=== PATIENT | female | born 1965 | race Caucasian/White ===

== ENCOUNTER 2020-04-28 07:14 | Outpatient (CLI) | payer BC, SELFPAY ==
--- NOTE | ~2020-04-28 | MM_ITS ---
EXAMINATION: MM screening [facility] BI w [facility] HISTORY: Screening mammogram TECHNIQUE: Craniocaudal and mediolateral oblique 3-D tomosynthesis images were obtained and synthetic 2-D images were generated. CAD analysis was submitted and interpreted. COMPARISON: 01/04/2019, 12/19/2017, 11/17/2016 BREAST PARENCHYMAL COMPOSITION: There are scattered areas of fibroglandular density. FINDINGS: There is no evidence of suspicious mass, calcification, or architectural distortion to sugg est malignancy in either breast. There has been no suspicious interval change. IMPRESSION: 1. No mammographic evidence of malignancy. 2. Recommend routine screening mammography in one year. BI-RADS Category 1: Negative Reviewed, dictated and finalized at location A.
== END 2020-04-28 07:15 | disposition home or self-care (01) ==
LOC: ANHIMG 07:17
PROVIDERS: PCP Family Medicine; Visit Provider Family Medicine
DX: Z12.31 Encounter for screening mammogram for malignant neoplasm of breast (principal)
CPT/HCPCS: 77063; 77067

== ENCOUNTER → 2020-10-30 16:52 | Outpatient (CLI) | payer BC, SELFPAY ==
--- NOTE | ~2020-10-30 | XR_ITS ---
EXAMINATION: XR foot LT min 3V DATE: 10/30/2020 17:53 INDICATION: Psoriatic arthritis. TECHNIQUE: 4 views of left foot were obtained. COMPARISON: Left foot radiographs 10/27/2016 FINDINGS: Bone alignment is normal. No fracture. There is mild osteoarthritis of first metatarsophala ngeal joint and some of the interphalangeal joints. There is an enthesophyte at plantar aspect of jed caneal tuberosity. IMPRESSION: 1. Mild polyarticular osteoarthritis. Reviewed, dictated and finalized at location A. TENANCE MAN
--- NOTE | ~2020-10-30 | XR_ITS ---
EXAMINATION: XR hand LT min 3V DATE: 10/30/2020 17:53 INDICATION: Psoriatic arthritis. TECHNIQUE: 3 views of left hand were obtained. COMPARISON: Left hand radiographs 10/27/2016 FINDINGS: Bone alignment is normal. No acute fracture. There is a loose body dorsal to the carpus on the lateral view. There is mild osteoarthritis of triscaphe joint, first carpometacarpal joint, and f irst interphalangeal joint. There is moderate osteoarthritis of second, third, and fifth distal inter phalangeal joints and mild osteoarthritis of fourth distal interphalangeal joint. IMPRESSION: 1. Polyarticular osteoarthritis. Reviewed, dictated and finalized at location A. O RECORDER MECHANIC
--- NOTE | ~2020-10-30 | XR_ITS ---
XR lumbar spine min 4V DATE: 10/30/2020 17:53 INDICATION: Psoriatic arthritis TECHNIQUE: AP, bilateral oblique, lateral and coned lateral lumbosacral views COMPARISON: 02/15/2013 MRI lumbar spine 01/27/2013 lumbosacral spine FINDINGS: There is diffuse osteopenia. No fracture or bone destruction is evident. The included lower thoracic and lumbar pedicles are intac t. There is moderate degenerative disease at L1-2 and L2-3 and L4-5, mild degenerative disc disease at L 3-4. L5-S1 interspace is relatively spared. No spondylolysis or spondylolisthesis. There is degenerative change at the apophyseal joints particul lexi at L4-5 and L5-S1. Sacroiliac joints appear normal. IMPRESSION: Diffuse osseous. Multilevel degenerative disc disease and degenerative change at the apophyseal joints Reviewed, dictated and finalized at location A. AL SUPPLY CHAIN DIRECTOR
--- NOTE | ~2020-10-30 | XR_ITS ---
XR sacroiliac joints min 3V DATE: 10/30/2020 17:53 INDICATION: Psoriatic arthritis TECHNIQUE: AP and bilateral oblique views COMPARISON: None FINDINGS: No fracture or dislocation, erosive change or ankylosis at the sacroiliac joints. IMPRESSION: No significant abnormality of the sacroiliac joints Reviewed, dictated and finalized at Location A. Reviewed, dictated and finalized at location A. REPAIRER
--- NOTE | ~2020-10-30 | XR_ITS ---
EXAMINATION: XR foot RT min 3V DATE: 10/30/2020 17:53 INDICATION: Psoriatic arthritis. TECHNIQUE: 4 views of right foot were obtained. COMPARISON: Right foot radiographs 10/27/2016 FINDINGS: Bone alignment is normal. No fracture. There is mild osteoarthritis of first metatarsophala ngeal joint and some of the interphalangeal joints. There is an enthesophyte at plantar aspect of jed caneal tuberosity. IMPRESSION: 1. Mild polyarticular osteoarthritis. Reviewed, dictated and finalized at location A. HAT SANDING MACHINE OPERATOR
--- NOTE | ~2020-10-30 | XR_ITS ---
EXAMINATION: XR hand RT min 3V DATE: 10/30/2020 17:53 INDICATION: Psoriatic arthritis. TECHNIQUE: 3 views of right hand were obtained. COMPARISON: Right hand radiographs 10/27/2016 FINDINGS: Bone alignment is normal. No fracture. There is mild osteoarthritis of first metacarpophala ngeal joint, first carpometacarpal joint, first interphalangeal joint, and second-fourth distal inter phalangeal joints and moderate osteoarthritis of fifth distal interphalangeal joint. IMPRESSION: 1. Polyarticular osteoarthritis. Reviewed, dictated and finalized at location A. ROL ROOM SUPERVISOR
== END ==
PROVIDERS: PCP Family Medicine; Visit Provider Internal Medicine Rheumatology
DX: L40.50 Arthropathic psoriasis, unspecified (principal); M19.072 Primary osteoarthritis, left ankle and foot; M19.041 Primary osteoarthritis, right hand; M19.042 Primary osteoarthritis, left hand; M51.36 Other intervertebral disc degeneration, lumbar region
CPT/HCPCS: 72110; 72202; 73130; 73630

== ENCOUNTER → 2020-12-15 00:40 | Outpatient (CLI) | payer BC, SELFPAY ==
[2020-12-15 18:52] LABS: SARS-CoV-2 RNA PCR Negative
== END ==
PROVIDERS: PCP Family Medicine; Visit Provider Internal Medicine Gastroenterology
DX: Z01.812 Encounter for preprocedural laboratory examination (principal); Z20.822 Contact with and (suspected) exposure to COVID-19
CPT/HCPCS: C9803; U0003; U0005

== ENCOUNTER 2020-12-19 02:00 | Day surgery (SDC) | payer BC, SELFPAY ==
[2020-12-06 12:32] VITALS: BMI 36.9
[2020-12-19 08:42] VITALS: BP 145/97; PULSE 95; RESP 18; TEMP 37.2; O2SAT 95; BMI 37.5
[2020-12-19] MEDS: LACTATED RINGERS 1,000 ML 150 ML IV CONT (09:10)
--- NOTE | 2020-12-19 09:31 | WPDANESEPPF ---
Anes - Initial Pre Proc Eval Procedure: Operation Date: 12/19/20 10:00 Proposed Procedures p Screening Colonoscopy - Orlando Marie MD Date/Time: 12/19/20 09:31 Surgeon: Orlando Marie MD Pre Op Diagnosis: neoplasm screening Patient Data Age: 55 Gender: F Height: 5 ft 7 in Weight: 108.6 kg Last Vital Signs Temp 98.9 F 12/19/20 08:42 Pulse 95 12/19/20 08:42 Resp 18 12/19/20 08:42 BP 145/97 H 12/19/20 08:42 Pulse Ox 95 12/19/20 08:42 Allergies Allergy/AdvReac Type Severity Reaction Status Date / Time beef derived (bovine) Allergy Unknown nausea Verified 12/19/20 08:41 ioversol Allergy Unknown Unknown Verified 12/19/20 08:41 Contrast Media Allergy Unknown Unknown Uncoded 12/19/20 08:41 Home Medications Medication Instructions Recorded Confirmed Type quinapril 20 mg tablet 20 mg PO DAILY #90 tablet 01/19/20 12/19/20 Rx adalimumab 40 mg/0.4 mL 40 mg SUBCUT WEEKLY 09/27/20 12/19/20 History subcutaneous syringe kit atorvastatin 20 mg tablet 20 mg PO DAILY #90 tablet 10/29/20 12/06/20 Rx cholecalciferol (vitamin D3) 1,250 1,250 mcg PO WEEKLY #14 cap 10/29/20 12/19/20 Rx mcg (50,000 unit) capsule fluticasone propionate [Flonase] 1 spray INTRANASAL DAILY PRN 12/06/20 12/19/20 History levothyroxine 125 mcg PO HS 12/06/20 12/19/20 History Patient hx anesthesia problems: none Family hx anesthesia problems: none PMFSH Past Medical History Medical History (Updated 12/19/20 @ 09:32 by Phani Hubbard MD) Anxiety Dyslipidemia Essential (primary) hypertension Hypothyroidism, unspecified Family History Family History Father Diabetes mellitus Hypertension Family history of malignant neoplasm Family history of cardiovascular disease Family history of lung cancer Mother Diabetes mellitus Family history of arthritis Family history of malignant neoplasm Family history of malignant neoplasm of cervix Grandparent Family history of psoriasis Family history of lung cancer Other Family history of elevated blood lipids Social History Social History Smoking packs per day: 1 Smoking cigarettes per day: 20.0 Years smoked: 35 Smoking pack-years: 35.00 Smoking status: Former smoker Smoking end date: 09/07/11 Alcohol intake: current Substance use: former Substance use type: marijuana Living arrangements: with family Spiritual care concerns: No Anes - Eval Final PreProcedure Day of Procedure 12/19/20 09:31 Patient weight: obese Heart: regular rate and rhythm Lungs: clear to auscultation Airway: Mallampati scale class II Neurological: alert and oriented Last oral intake: >/= 8 hours ASA classification: III Emergent: no Anesthetic plan: proceed Anesthesia type and monitoring: general GIVS and standard monitoring Informed Consent: The patient's anesthetic plan and its attendant risks and benefits were discussed with the patient/family/POA. Questions were solicited and answers provided to the satisfaction of the patient/family/POA.
--- NOTE | 2020-12-19 09:41 | PM.HPGS ---
History of Present Illness History of Present Illness Consent: Risks, benefits, and alternatives have been discussed and questions answered. Patient agrees to proceed with procedure. Chief complaint: neoplasm screening Narrative: Vivian Matute is a 55 year old female here for first screening colonoscopy Review of Systems Constitutional: Constitutional: Denies headache(s) and Denies weakness Eyes: Eyes: Denies blurry vision ENT: Reports Normal hearing present, Denies headache(s) and Denies neck pain Cardiovascular: Cardiovascular: Denies chest pain and Denies dyspnea Respiratory: Respiratory: Denies dyspnea Gastrointestinal: Gastrointestinal: Reports no additional gastrointestinal complaints Genitourinary: Genitourinary: Denies dysuria Musculoskeletal: Musculoskeletal: Denies neck pain Integumentary/Breasts: Skin/Breast: Denies dry skin Neurologic: Reports Normal hearing present, Denies headache(s) and Denies weakness Psychiatric: Psychiatric: Denies anxiety Endocrine: Endocrine: Denies change in body appearance Hematologic/Lymphatic: Hematologic/Lymphatic: Denies easy bleeding Allergic/Immunologic: Allergic/Immunologic: Denies urticaria [facility] Past Medical History Medical History (Updated 12/19/20 @ 09:42 by Orlando Marie MD) Anxiety Colon cancer screening Dyslipidemia Essential (primary) hypertension Hypothyroidism, unspecified Family History Family History Father Diabetes mellitus Hypertension Family history of malignant neoplasm Family history of cardiovascular disease Family history of lung cancer Mother Diabetes mellitus Family history of arthritis Family history of malignant neoplasm Family history of malignant neoplasm of cervix Grandparent Family history of psoriasis Family history of lung cancer Other Family history of elevated blood lipids Social History Social History Smoking packs per day: 1 Smoking cigarettes per day: 20.0 Years smoked: 35 Smoking pack-years: 35.00 Smoking status: Former smoker Smoking end date: 09/07/11 Alcohol intake: current Substance use: former Substance use type: marijuana Living arrangements: with family Spiritual care concerns: No Meds Home Medications and Allergies Home Medications Medication Instructions Recorded Confirmed Type quinapril 20 mg tablet 20 mg PO DAILY #90 tablet 01/19/20 12/19/20 Rx adalimumab 40 mg/0.4 mL 40 mg SUBCUT WEEKLY 09/27/20 12/19/20 History subcutaneous syringe kit atorvastatin 20 mg tablet 20 mg PO DAILY #90 tablet 10/29/20 12/06/20 Rx cholecalciferol (vitamin D3) 1,250 1,250 mcg PO WEEKLY #14 cap 10/29/20 12/19/20 Rx mcg (50,000 unit) capsule fluticasone propionate [Flonase] 1 spray INTRANASAL DAILY PRN 12/06/20 12/19/20 History levothyroxine 125 mcg PO HS 12/06/20 12/19/20 History Allergies Allergy/AdvReac Type Severity Reaction Status Date / Time beef derived (bovine) Allergy Unknown nausea Verified 12/19/20 08:41 ioversol Allergy Unknown Unknown Verified 12/19/20 08:41 Contrast Media Allergy Unknown Unknown Uncoded 12/19/20 08:41 Vital Signs Vital Signs - 24 hr 12/19/20 08:42 Temperature 98.9 F Pulse Rate 95 Respiratory Rate 18 Blood Pressure 145/97 H Pulse Oximetry 95 Exam Const: General: comfortable and no acute distress HENMT: General nose exam: Normal nares present Eyes: General: appearance normal, both eyes and all related structures Neck: Neck: no JVD Resp: Auscultation: clear to auscultation bilaterally Cardio: Rate: regular rate Rhythm: regular rhythm GI: Inspection: non-distended GI Palp: Yes Soft to palpation Skin: General skin exam: normal color Neuro: General: gait normal Speech: normal speech Extrem: General: normal to inspection Psych: Mental Status: mental status grossly normal As
[2020-12-19 10:02] VITALS: BP 112/68; PULSE 80; RESP 18; O2SAT 98
[2020-12-19 10:12] VITALS: BP 115/76; PULSE 76; RESP 17; O2SAT 97
[2020-12-19 10:22] VITALS: BP 118/56; PULSE 67; RESP 19; O2SAT 100
== END 2020-12-19 10:42 | disposition home or self-care (01) ==
PROVIDERS: PCP Family Medicine; Visit Provider Internal Medicine Gastroenterology
PROC: 0DJD8ZZ Inspection of Lower Intestinal Tract, Via Natural or Artificial Opening Endoscopic (ICD-10-PCS; CPT 45378; principal; 2020-12-19 10:00)
DX: Z12.11 Encounter for screening for malignant neoplasm of colon (principal); K57.30 Diverticulosis of large intestine without perforation or abscess without bleeding; K64.8 Other hemorrhoids; I10 Essential (primary) hypertension; E78.5 Hyperlipidemia, unspecified; E03.9 Hypothyroidism, unspecified; F41.9 Anxiety disorder, unspecified; Z87.891 Personal history of nicotine dependence; F12.90 Cannabis use, unspecified, uncomplicated; E66.9 Obesity, unspecified; Z68.37 Body mass index [BMI] 37.0-37.9, adult
CPT/HCPCS: 45378; C9803; J2704; J7120; U0003; U0005

== ENCOUNTER 2021-05-11 07:58 | Outpatient (CLI) | payer BC, SELFPAY ==
--- NOTE | ~2021-05-11 | MM_ITS ---
EXAMINATION: MM screening [facility] HISTORY: Screening mammogram TECHNIQUE: Craniocaudal and mediolateral oblique 3-D tomosynthesis images were obtained and synthetic 2-D images were generated. CAD analysis was submitted and interpreted. COMPARISON: 04/28/2020, 01/04/2019, 12/20/2007 bilateral digital screening mammogram examinations BREAST PARENCHYMAL COMPOSITION: FINDINGS: There is no evidence of suspicious mass, calcification, or architectural distortion to sugg est malignancy in either breast. There has been no suspicious interval change. IMPRESSION: 1. No mammographic evidence of malignancy. 2. Recommend routine screening mammography in one year. BI-RADS Category 1: Negative Reviewed, dictated and finalized at location A.
== END 2021-05-11 07:59 | disposition home or self-care (01) ==
LOC: ANHIMG 08:01
PROVIDERS: PCP Family Medicine; Visit Provider Family Medicine
DX: Z12.31 Encounter for screening mammogram for malignant neoplasm of breast (principal)
CPT/HCPCS: 77063; 77067

== ENCOUNTER 2022-01-25 08:06 | Emergency (ER) | payer BC, SELFPAY ==
--- NOTE | ~2022-01-25 | XR_ITS ---
EXAMINATION: XR knee RT 2V DATE: 01/25/2022 08:33 INDICATION: Medial right knee pain TECHNIQUE: AP and lateral views of the right knee were obtained. COMPARISON: None. FINDINGS: Alignment is normal. No fracture. Mild joint space narrowing in the medial and patellofemoral compart ments and small marginal osteophytes at the lateral and patellofemoral compartments. Soft tissues are unremarkable. No right knee joint effusion. IMPRESSION: 1. Mild tricompartmental osteoarthritis. No right knee joint effusion or acute osseous abnormality. Reviewed, dictated and finalized at location A.
[2022-01-25 08:16] VITALS: BP 140/78; PULSE 97; RESP 16; TEMP 36.8; O2SAT 97
--- NOTE | 2022-01-25 08:16 | ED.EXTPRO ---
HPI - Extremity Problem General Chief complaint: Extremity Injury, Lower Stated complaint: right knee pain Time Seen by Provider: 01/25/22 08:16 Source: patient, RN notes reviewed and old records reviewed Mode of arrival: ambulatory Limitations: no limitations History of Present Illness HPI Narrative: 56-year-old female presents to the [facility] with complaints of right medial knee pain for 10 days. Patient reports that she has been using Tylenol and Advil. States she tried calling her primary care provider and an Ortho provider and could not get an appointment, was referred to the [facility]. No bruising or swelling noted. Full range of motion. Walks with a mild limp, using a cane History of psoriatic arthritis Related Data Home Medications Medication Instructions Recorded Confirmed adalimumab 40 mg/0.4 mL 40 mg SUBCUT WEEKLY 09/27/20 11/22/21 subcutaneous syringe kit fluticasone propionate [Flonase] 1 spray INTRANASAL DAILY PRN 12/06/20 11/22/21 Allergies Allergy/AdvReac Type Severity Reaction Status Date / Time beef derived (bovine) Allergy Unknown nausea Verified 01/25/22 08:32 ioversol Allergy Unknown Unknown Verified 01/25/22 08:32 Contrast Media Allergy Unknown Unknown Uncoded 11/22/21 11:58 Review of Systems Review of Systems: All systems reviewed & are unremarkable except as noted in HPI and below Constitutional: Constitutional: Reports no additional constitutional complaints Eyes: Eyes: Reports no additional eye complaints ENT: Reports system reviewed and no additional complaints, except as documented Cardiovascular: Cardiovascular: Reports no additional cardiovascular complaints and Denies chest pain Respiratory: Respiratory: Reports no additional respiratory complaints, Denies cough and Denies dyspnea Gastrointestinal: Gastrointestinal: Reports no additional gastrointestinal complaints and Denies abdominal pain Musculoskeletal: Musculoskeletal: Reports as per HPI and Reports arthralgias (Medial right knee) Integumentary/Breasts: Skin/Breast: Reports system reviewed and no additional complaints, except as docu Neurologic: Reports system reviewed and no additional complaints, except as documented Psychiatric: Psychiatric: Reports no additional psychiatric complaints Allergic/Immunologic: Allergic/Immunologic: Reports no additional allergic/immunologic complaints [facility] Past Medical History Medical History (Updated 01/25/22 @ 08:47 by Abbey Gilliland, BENITO) Anxiety Colon cancer screening Dyslipidemia Essential (primary) hypertension Hypothyroidism, unspecified Psoriasis with arthropathy Family History Family History Father Diabetes mellitus Hypertension Family history of malignant neoplasm Family history of cardiovascular disease Family history of lung cancer Mother Diabetes mellitus Family history of arthritis Family history of malignant neoplasm Family history of malignant neoplasm of cervix Grandparent Family history of psoriasis Family history of lung cancer Other Family history of elevated blood lipids Social History Social History Smoking packs per day: 1 Smoking cigarettes per day: 20.0 Years smoked: 35 Smoking pack-years: 35.00 Smoking end date: 09/07/11 Alcohol intake: current Substance use: former Substance use type: marijuana Spiritual care concerns: No Comments At the time of my signature, I reviewed and agree with the nursing past medical, surgical, social, and family history. There is no relevant family history pertinent to the patient complaint. Exam Const: General: healthy appearing, no acute distress and alert Nutritional Appearance: well nourished Orientation/consciousness: patient oriented x3 Limitations: no limitations HENMT: Head: normal to inspection Ears: external ears normal Eyes: Pupils: Equal, round a
[2022-01-25 08:33] VITALS: BP 140/78; PULSE 97; RESP 16; TEMP 36.8; O2SAT 97
== END 2022-01-25 08:48 | disposition home or self-care (01) ==
PROVIDERS: Emergency Provider Nurse Practitioner; PCP Family Medicine
DX: M17.11 Unilateral primary osteoarthritis, right knee (principal); E78.5 Hyperlipidemia, unspecified; I10 Essential (primary) hypertension; E03.9 Hypothyroidism, unspecified
CPT/HCPCS: 73560; 99213; G0463

== ENCOUNTER 2022-05-09 18:22 | Emergency (ER) | payer BC, SELFPAY ==
[2022-05-09 18:32] VITALS: BP 143/88; PULSE 98; RESP 16; TEMP 36.9; O2SAT 98
--- NOTE | 2022-05-09 18:41 | ED.SKABFB ---
HPI - Skin/Abscess/Foreign Bdy General Chief complaint: Skin/Abscess/Foreign Body Stated complaint: RASH Time Seen by Provider: 05/09/22 18:35 Source: patient Mode of arrival: ambulatory Limitations: no limitations History of Present Illness HPI narrative: 56-year-old female presented for complaint of itching and intermittent rash over torso for the last 3 weeks. She states she feels itchy and then notices welts after scratching. She has been taking Benadryl as needed. She denies changes to lotion, soap, detergent, medication or any other exposures. History of psoriatic arthritis. Related Data Home Medications Medication Instructions Recorded Confirmed adalimumab 40 mg/0.4 mL 40 mg subcut WEEKLY 09/27/20 04/03/22 subcutaneous syringe kit (Humira(CF)) fluticasone propionate 50 1 spray intranasal DAILY PRN Sinus 12/06/20 04/03/22 mcg/actuation nasal Symptoms spray,suspension Allergies Allergy/AdvReac Type Severity Reaction Status Date / Time beef derived (bovine) Allergy Unknown nausea Verified 04/03/22 14:44 ioversol Allergy Unknown Unknown Verified 04/03/22 14:44 contrast dye Allergy Mild Hives Uncoded 04/03/22 14:44 Contrast Media Allergy Unknown Unknown Uncoded 04/03/22 14:44 Review of Systems Review of Systems: CONSTITUTIONAL: Denies body aches, fever, chills, or sweats. EYES: Denies visual changes, redness, or discharge. CARDIOVASCULAR: Denies chest pain, palpitations, or edema. RESPIRATORY: Denies cough or dyspnea. GASTROINTESTINAL: Denies abdominal pain, nausea, vomiting, or diarrhea. SKIN: reports itching MUSCULOSKELETAL: Denies back pain, joint pain, or myalgia. [facility] Past Medical History Medical History Anxiety Colon cancer screening Dyslipidemia Essential (primary) hypertension Hypothyroidism, unspecified Psoriasis with arthropathy Family History Family History Father Diabetes mellitus Hypertension Family history of malignant neoplasm Family history of cardiovascular disease Family history of lung cancer Mother Diabetes mellitus Family history of arthritis Family history of malignant neoplasm Family history of malignant neoplasm of cervix Grandparent Family history of psoriasis Family history of lung cancer Other Family history of elevated blood lipids Social History Social History Smoking packs per day: 1 Smoking cigarettes per day: 20.0 Years smoked: 35 Smoking pack-years: 35.00 Smoking status: Former smoker Smoking end date: 09/07/11 Alcohol intake: current Substance use: former Substance use type: marijuana Spiritual care concerns: No Comments At time of signature, I have reviewed and agree with nursing past medical, surgical, social and family history unless otherwise noted. Please see nursing chart for further information. There is no relevant family history pertinent to the presenting complaint Exam Narrative: GENERAL: Well-appearing HEAD: Normocephalic, atraumatic. EYES: conjunctivae clear, and EOMI. ENT: Mucous membranes moist. Oropharynx without edema, erythema or lesions. CHEST: Clear to auscultation. HEART: Regular rate and rhythm. SKIN: Warm, dry. few scattered small urticarial welts with evidence of scratching to the lateral lower back, no apparent infection or drainage to the lesions. NEURO: Alert and oriented x3. Course Course Emergency Course: Patient is aware of diagnosis, understands and agrees to treatment plan. Anticipatory guidance given. Patient agrees to follow-up as directed and is aware of reasons to seek care at the emergency department. Portions of this record may have been created with voice recognition software Level of Care: Express Care Visit Vital Signs Vital signs: Vital Signs Temperature 98.4 F 05/09/22 18:32
== END 2022-05-09 18:48 | disposition home or self-care (01) ==
PROVIDERS: Emergency Provider Nurse Practitioner Family; PCP Family Medicine
DX: L30.9 Dermatitis, unspecified (principal); Z87.891 Personal history of nicotine dependence; E78.5 Hyperlipidemia, unspecified; I10 Essential (primary) hypertension; E03.9 Hypothyroidism, unspecified
CPT/HCPCS: 99213; G0463

== ENCOUNTER → 2022-05-24 10:25 | Outpatient (CLI) | payer BC, SELFPAY ==
--- NOTE | ~2022-05-24 | MR_ITS ---
EXAMINATION: MR knee RT wo con DATE: 05/24/2022 11:02 INDICATION: Right knee pain status post twisting injury 01/26 TECHNIQUE: Magnetic resonance imaging (MRI) of the right knee was performed without intravenous contr ast. Sequences included axial PD-weighted FS FSE, coronal PD-weighted FSE and PD-weighted FS FSE, sag ittal PD-weighted FSE, and sagittal T2-weighted FS FSE. COMPARISON: X-ray right knee 01/25/2022 FINDINGS: Medial compartment: Small apical tears of the body and anterior horn in a background of degenerative signal change. Moder ate diffuse cartilage thinning with multifocal areas of full-thickness cartilage signal abnormality. Moderate osteophytosis. Lateral compartment: Lateral meniscus intact. Mild diffuse cartilage thinning and moderate osteophytosis. Patellofemoral compartment: Full-thickness cartilage loss on the median ridge. Retinacula intact. Ligaments and tendons: Intact. Fluid: No significant joint fluid or fluid collection. Osseous/other: No suspicious focal or diffuse marrow signal. IMPRESSION: 1. Apical tears of the body and anterior horn of the medial meniscus. 2. Moderate tricompartmental osteoarthritis. Reviewed, dictated and finalized at location K.
== END ==
PROVIDERS: PCP Family Medicine; Visit Provider Orthopaedic Surgery
DX: S83.241A Other tear of medial meniscus, current injury, right knee, initial encounter (principal); X58.XXXA Exposure to other specified factors, initial encounter; M17.11 Unilateral primary osteoarthritis, right knee
CPT/HCPCS: 73721

== ENCOUNTER 2022-06-26 07:22 | Outpatient (CLI) | payer BC, SELFPAY ==
--- NOTE | ~2022-06-26 | US_ITS ---
EXAMINATION: US abdomen complete DATE: 06/26/2022 10:05 INDICATION: Transaminitis TECHNIQUE: Multiple grayscale and Doppler ultrasound images of the abdomen were obtained. COMPARISON: None available FINDINGS: The head and body of the pancreas are normal. The pancreatic tail is obscured by bowel gas. The liver demonstrates increased echogenicity, heterogenous echotexture, and decreased through trans mission. No surface nodularity. Normal hepatopetal flow in the main portal vein. The gallbladder is n ormal with no abnormal wall thickening, pericholecystic fluid or stones. The normal common bile duct measures 3 mm. There was no sonographic Patel sign. The visualized portions of the aorta and inferio r vena cava are normal. The right kidney measures 11.1 x 5.3 x 4.2 cm. The left kidney measures 11.0 x 4.8 x 5.9 cm. The kidn eys demonstrate normal parenchymal echogenicity. There is no hydronephrosis. The spleen is normal in appearance and measures 10.4 cm. IMPRESSION: 1. Diffuse hepatic steatosis. Reviewed, dictated and finalized at location B.
== END 2022-06-26 07:23 | disposition home or self-care (01) ==
LOC: ANHIMG 07:31
PROVIDERS: PCP Family Medicine
DX: L40.50 Arthropathic psoriasis, unspecified (principal); Z51.81 Encounter for therapeutic drug level monitoring; Z79.899 Other long term (current) drug therapy; R74.01 Elevation of levels of liver transaminase levels; K76.0 Fatty (change of) liver, not elsewhere classified
CPT/HCPCS: 76700

== ENCOUNTER 2022-08-08 01:31 | Day surgery (SDC) | payer BC, SELFPAY ==
[2022-07-29 12:53] VITALS: BMI 40.7
--- NOTE | 2022-07-29 12:58 | PC.NURSE ---
Report to the Outpatient Waiting Room, entrance under the green pavilion located off [facility], at time 1100 on date 08/08/22. Planned Procedure Time: 1300. Time changes happen often and if your time is changed the preop area will call you the afternoon before. - You and your visitor will be asked to self-screen and do not enter if you have any COVID symptoms. - Only one visitor is requested with a max of two and NO children visitors are allowed at this time. - The patient visitor may be requested to leave or wait in car when not with patient due to distancing restrictions. - A mask is optional within the hospital. Patients may have clear liquids (water, carbonated beverages, clear teas, apple juice) until 3 hours prior to surgery with a maximum of 20 ounces. - No food from midnight until time of surgery Take the following medications with a SIP of water the morning of surgery: NONE Medications to discontinue per physician: VITAMINS/SUPPLEMENTS Date to take last dose: 08/04/22 PT WAS INSTRUCTED BY STAFF DEVELOPMENT NURSE TO TAKE LAST DOSE OF HUMIRA 07/28 AND NOT RESUME UNTIL 3 WEEKS AFTER SURGERY Please no make-up, nail wallisian, hairspray, perfume, deodorant, or body powder the day of surgery. No jewelry (including any body piercings) or valuables the day of surgery, leave them at home. Please take a shower or bath the night before, or the morning of, surgery with an antibacterial soap. Wear comfortable, loose fitting clothing. - Jewelry must be removed prior to entering the operating room. Rings and piercings that are not removed may be cut off. - The hospital will not accept responsibility for valuables. - Please leave all valuables, including medications, at home the day of surgery. If you are going home after surgery, a licensed car driver must drive you home. - NO public transportation without another adult if you receive anesthesia. - We recommend that an adult stay with you for 24 hours following discharge. - We also recommend that you do not drive, make important decision, drink alcoholic beverages, or take any drugs that were not prescribed by your health care provider for at least 24 hours after your discharge time. Follow any additional instructions given to you from your surgeon. If you or anyone in your household have experienced Covid symptoms in the past week, please notify your surgeon or the nurse liaison at the phone number below for possible testing. Telephone instructions given to JESSIE - LINDSAY HIGH and asked if any additional questions and then verbalized understanding. Patient advised to call surgeon office or pre surgery nurse liaison [phone] if any additional questions.
[2022-08-08] VITALS (8 sets, daily range): BP systolic 130–160; BP diastolic 78–101; PULSE 72–79; RESP 10–20; TEMP 37.1–37.6; O2SAT 96–100; BMI 40.8
--- NOTE | 2022-08-08 10:48 | WPDANESEPPF ---
Anes - Initial Pre Proc Eval Procedure: Operation Date: 08/08/22 12:15 Proposed Procedures p Right Knee Arthroscopic Partial Medial Meniscectomy - Dell Lynn MD Date/Time: 08/08/22 10:48 Surgeon: Dell Lynn MD Pre Op Diagnosis: right knee medial meniscus tear Patient Data Age: 57 Gender: F Height: 1.7 m Weight: 117.95 kg Allergies Allergy/AdvReac Type Severity Reaction Status Date / Time beef derived (bovine) Allergy Unknown nausea Verified 08/08/22 10:23 ioversol Allergy Unknown Hives Verified 08/08/22 10:23 contrast dye Allergy Mild Hives Uncoded 08/08/22 10:23 Contrast Media Allergy Unknown Hives Uncoded 08/08/22 10:23 Home Medications Medication Instructions Recorded Confirmed Type adalimumab 40 mg/0.4 mL 40 mg subcut WEEKLY 09/27/20 08/08/22 History subcutaneous syringe kit (Humira(CF)) fluticasone propionate 50 1 spray intranasal DAILY PRN Sinus 12/06/20 07/29/22 History mcg/actuation nasal Symptoms spray,suspension cholecalciferol (vitamin D3) 50 50 mcg PO DAILY 06/03/22 08/08/22 History mcg (2,000 unit) capsule levothyroxine 125 mcg tablet See Rx Instructions .Route 07/17/22 07/29/22 Rx .COMPLEX #90 tabs quinapril 20 mg tablet See Rx Instructions .Route 07/21/22 07/29/22 Rx .COMPLEX #90 tabs vitamin B complex 1 tablet PO DAILY 07/29/22 08/08/22 History Patient hx anesthesia problems: none Family hx anesthesia problems: none Results Review: All pre-operative results and documents have been reviewed as part of the pre-operative evaluation. [facility] Past Medical History Medical History Anxiety Colon cancer screening Dyslipidemia Essential (primary) hypertension Hypothyroidism, unspecified Psoriasis with arthropathy Family History Family History Father Diabetes mellitus Hypertension Family history of malignant neoplasm Family history of cardiovascular disease Family history of lung cancer Mother Diabetes mellitus Family history of arthritis Family history of malignant neoplasm Family history of malignant neoplasm of cervix Grandparent Family history of psoriasis Family history of lung cancer Other Family history of elevated blood lipids Social History Social History Smoking packs per day: 1.75 Smoking cigarettes per day: 35.0 Years smoked: 25 Smoking pack-years: 43.75 Smoking status: Former smoker Tobacco type: cigarettes Smoking end date: 09/07/11 Alcohol intake: never Substance use: never Substance use type: does not use Lack of Transportation: No Lack of Food: Never True Current Housing: I Have Housing Concerned About Future Housing: No Difficulty Paying Gas/Electric Bills: No Difficulty Paying for Meds: No Currently Unemployed: No Education: Associate Degree Difficulty w/ Childcare or Family Care: No Living arrangements: with family Spiritual care concerns: No Anes - Eval Final PreProcedure Day of Procedure 08/08/22 10:48 Patient weight: morbidly obese Heart: regular rate and rhythm Lungs: clear to auscultation Airway: Mallampati scale class III Neurological: alert and oriented Last oral intake: >/= 8 hours ASA classification: III Emergent: no Anesthetic plan: proceed Anesthesia type and monitoring: general LMA and standard monitoring Results Review: All pre-operative results and documents have been reviewed as part of the pre-operative evaluation. Informed Consent: The patient's anesthetic plan and its attendant risks and benefits were discussed with the patient/family/POA. Questions were solicited and answers provided to the satisfaction of the patient/family/POA.
[2022-08-08] MEDS: LACTATED RINGERS 1,000 ML 30 ML IV CONT (10:50)
[2022-08-08] MEDS: KETOROLAC 15 MG/ML VIAL (*BKC) IV PUSH (10:57)
[2022-08-08] MEDS: ACETAMINOPHEN 500 MG TABLET 1000 MG PO (10:57)
--- NOTE | 2022-08-08 12:09 | WPDHPUPDATE1 ---
History and Physical Update Update Date/Time: 08/08/22 12:09 History and Physical has been reviewed, including an updated exam of the patient. There are NO changes in the patient's condition. Risks, benefits, and alternatives have been discussed and questions answered. Patient agrees to proceed with procedure.
[2022-08-08] MEDS: ceFAZolin 2 GM/D5W 50 ML 2 GM/50 ML BAG IVPB (12:23)
[2022-08-08] MEDS: BUPIVACAINE HCL 0.25% PF 30 ML VIAL INFILTRATE (13:02)
--- NOTE | 2022-08-08 13:40 | P.OP_ITS ---
Procedure Note - Detailed Date of Procedure 08/08/22 Pre-op Diagnosis right knee medial meniscus tear Post-op Diagnosis Same Procedure Performed Arthroscopic partial medial meniscectomy, right knee. Surgeon Dell Lynn MD Anesthesia General Findings Extensive posterior medial horn tear. Tear to the rim of the meniscus. Partial excision required. Some meniscus was preserved. Moderate medial compartment arthritis. Mild tibia arthritis at the weight-bearing portion laterally. Medial femur chondromalacia grade 3, medial tibia grade 2. Lateral femur chondromalacia grade 1, lateral tibia grade 2. Patellar grade 1, trochlea grade 1. Description of Procedure The patient was identified and the surgical site confirmed and signed in the preoperative holding area. Antibiotics were started per protocol. She was brought to the operative room and transferred to the OR table. A general anesthetic was administered. Supine position with the operative lower extremity position in the leg nieto after placement of a well padded tourniquet. The leg support was lowered and the contralateral limb was supported with a soft bolster. The knee was prepped and draped in the usual sterile fashion. A time- out was performed. The portal sites were marked and infiltrated with 0.5% Marcaine 20 mL. The limb was exsanguinated and the tourniquet inflated to 300 mL Hg. Standard inferolateral and inferomedial portals were established. Inflow was obtained with the saline pump. The camera was introduced. Diagnostic inspection of the joint was accomplished. The meniscus was debrided with the arthroscopic shaver and punches until stable. Gentle chondroplasty on the medial femur. The arthroscopic instruments were removed. The tourniquet released and wounds closed with subcutaneous 4-0 Monocryl absorbable suture. Steri strips and a sterile dressing were applied. A light elastic wrap was placed. The patient was extubated and brought to the recovery room in stable condition. Estimated Blood Loss -5.0 Drains No Complications No immediate complications Condition Stable Disposition PACU [facility] Billing Surgery - Charge Forward: Surgery Billing
[2022-08-08] MEDS: oxyCODONE HCL (*CRX) 5 MG TAB IR PO (14:25)
== END 2022-08-08 15:13 | disposition home or self-care (01) ==
PROVIDERS: PCP Family Medicine; Visit Provider Orthopaedic Surgery
PROC: (CPT 29870; principal; 2022-08-08 12:15)
DX: S83.241A Other tear of medial meniscus, current injury, right knee, initial encounter (principal); W19.XXXA Unspecified fall, initial encounter; M94.261 Chondromalacia, right knee; M17.11 Unilateral primary osteoarthritis, right knee; I10 Essential (primary) hypertension; E78.5 Hyperlipidemia, unspecified; L40.50 Arthropathic psoriasis, unspecified; E03.9 Hypothyroidism, unspecified; Z87.891 Personal history of nicotine dependence; E66.01 Morbid (severe) obesity due to excess calories; Z68.41 Body mass index [BMI] 40.0-44.9, adult
CPT/HCPCS: 29881; A9270; J0690; J1100; J1885; J2250; J2405; J2704; J3010; J7120

== ENCOUNTER 2022-08-27 09:47 | Outpatient (CLI) | payer BC, SELFPAY | END 2022-08-27 09:48 | disposition home or self-care (01) | LOC: ANHAUDIO 09:48 | PROVIDERS: PCP Family Medicine; Visit Provider Physician Assistant | DX: H91.90 Unspecified hearing loss, unspecified ear (principal) | CPT/HCPCS: 92557; 92567 ==

== ENCOUNTER 2022-11-08 08:10 | Outpatient (CLI) | payer BC, SELFPAY ==
--- NOTE | ~2022-11-08 | MM_ITS ---
EXAMINATION: MM screening [facility] BI w benson HISTORY: Screening mammogram TECHNIQUE: Craniocaudal and mediolateral oblique 3-D tomosynthesis images were obtained and synthetic 2-D images were generated. CAD analysis was submitted and interpreted. COMPARISON: 05/11/2021, 04/28/2020, 01/04/2019 BREAST PARENCHYMAL COMPOSITION: There are scattered areas of fibroglandular density. FINDINGS: No suspicious mass, calcification, or architectural distortion are identified in either yahaira ast to suggest malignancy. There has been no suspicious interval change. IMPRESSION: 1. No mammographic evidence of malignancy. 2. Recommend routine screening mammography in one year. BI-RADS Category 1: Negative Reviewed, dictated and finalized at location A. OPERATIONS MANAGER
== END 2022-11-08 08:11 | disposition home or self-care (01) ==
LOC: ANHIMG 08:11
PROVIDERS: PCP Family Medicine; Visit Provider Physician Assistant
DX: Z12.31 Encounter for screening mammogram for malignant neoplasm of breast (principal)
CPT/HCPCS: 77063; 77067

== ENCOUNTER 2023-04-23 10:22 | Emergency (ER) | payer OTHER, SELFPAY ==
[2023-04-23] VITALS (19 sets, daily range): BP systolic 100–144; BP diastolic 55–86; PULSE 85; RESP 16; TEMP 36.6; O2SAT 96–100
--- NOTE | ~2023-04-23 | CT_ITS ---
EXAMINATION: CT abdomen pelvis wo con DATE: 04/23/2023 12:07 INDICATION: Abdominal pain. Elevated lipase. TECHNIQUE: Computed tomography (CT) of the abdomen and pelvis was performed without intravenous contr ast. Automated exposure control and iterative reconstruction technique were employed. The dose-length product was 1529.73 mGy-cm. COMPARISON: 01/19/2018 FINDINGS: Mild emphysema at the lower lungs. Heart size is normal. Atherosclerotic coronary artery calcific loc ation. No pericardial or pleural effusion. Diffuse hepatic steatosis. Gallbladder, spleen, pancreas, bilateral adrenal glands and kidneys are normal. No evident peripancreatic stranding to suggest acute pancreatitis although this can be radiographical ly occult. Mild diverticulosis with inflammatory stranding surrounding a diverticulum at the mid sigm oid colon consistent with diverticulitis. Small bowel and appendix are normal. Small fat-containing u mbilical hernia. Bladder, uterus and bilateral adnexa are unremarkable. No abscess or free intraperit zabala gas or fluid. No pathologically enlarged abdominal or pelvic lymphadenopathy. There is calcifie d atherosclerosis of the aorta and many of the other arteries. Mild to moderate lower lumbar spondylo sis. IMPRESSION: 1. Radiographically uncomplicated sigmoid diverticulitis. Reviewed, dictated and finalized at location A.
[2023-04-23 10:52] LABS: Basophils Absolute Auto 0.1 K/mm3 (0.0-0.1); Basophils Percent Auto 0.8 % (0.2-1.2); Eosinophils Absolute Auto 0.2 K/mm3 (0-0.3); Eosinophils Percent Auto 2.3 % (0-4.4); Hematocrit 46.8 % (37.0-47.0); Immature Granulocyte Absolute 0.02 K/mm3 (0.00-0.031); Immature Granulocyte Percent A 0.2 % (0-0.5); Lymphocytes Absolute Auto 2.73 K/mm3 (0.9-3.2); Mean Corpuscular HGB Conc 32.1 g/dl (32-36); Mean Corpuscular Hemoglobin 30.6 pg (26-34); Mean Corpuscular Volume 95.5 fl (80-100); Mean Platelet Volume 9.9 fl (7.4-10.4); Monocytes Percent Auto 9.4 % (2.6-8.5); Neutrophils Absolute Auto 6.4 K/mm3 (1.3-6.7); Neutrophils Percent Auto 61.3 % (45.5-73.1); Platelet Count Result 251 k/mm3 (150-375); Red Cell Distribution Width 13.8 % (11.5-14.5); White Blood Count 10.5 K/mm3 (4.5-10.0)
[2023-04-23 10:59] LABS: Appearance Urine Clear (Clear); Bacteria Urine None Seen /hpf; Bilirubin Urine Negative (Negative); Blood Urine Negative (Negative); Color Urine Yellow (Yellow); Glucose Urine UA Negative (Negative); Ketones Urine Negative (Negative); Leukocyte Esterase Ur 1+ LEU/UL (Negative); Nitrate Urine Negative (Negative); Protein Urine Negative (Negative); RBC Urine 0-2 /hpf (0-2); Specific Grav Ur 1.021 (1.001-1.035); Squamous Epithelial Cell Urine None seen /hpf (Few); Urobilinogen Urine 0.2 mg/dL (<2.0)
[2023-04-23 11:01] LABS: Alanine Aminotransferase 45 U/L (6-35); Albumin Level 4.3 g/dL (3.5-5.1); Alkaline Phosphatase 90 U/L (38-126); Anion Gap 5 mmol/L (8-16); Aspartate Amino Transferase 34 U/L (14-36); Bilirubin,Total 0.4 mg/dL (0.2-1.3); Blood Urea Nitrogen 12 mg/dL (7-17); Calcium 9.4 mg/dL (8.4-10.2); Carbon Dioxide 26 mmol/L (22-30); Chloride 102 mmol/L (98-107); Estimated CRCL calculation 94 ml/min; Estimated Glomerular Filt Rate > 60; Glucose 140 mg/dL (65-110); Potassium 4.4 mmol/L (3.4-5.0); Sodium 133 mmol/L (137-145)
[2023-04-23 11:03] LABS: Add Urine Microscopic? YES
[2023-04-23 11:39] LABS: Lipase 1585 U/L (23-300)
[2023-04-23] MEDS: SODIUM CHLORIDE 0.9% IV 1,000 ML 999 ML IV CONT (12:20)
--- NOTE | 2023-04-23 12:40 | ED.ABDPAIN ---
HPI - Abdominal Pain General Chief Complaint: Abdominal Pain Stated Complaint: ABD PAIN [id number] WORSE TODAY Time Seen by Provider: 04/23/23 11:17 Source: patient Mode of arrival: ambulatory Limitations: no limitations History of Present Illness HPI narrative: This is a 57 year old female that presents to the ER for right-sided lower abdominal pain. Ongoing intermittently over the last month. Reports since last night has been constant. The pain is sharp and sometimes burning. Also reports some back pain and nausea. Denies fevers, vomiting, diarrhea, dysuria, or hematuria. Related Data Home Medications Medication Instructions Recorded Confirmed adalimumab 40 mg/0.4 mL 40 mg subcut WEEKLY 09/27/20 04/23/23 subcutaneous syringe kit (Humira(CF)) fluticasone propionate 50 1 spray intranasal DAILY PRN Sinus 12/06/20 04/23/23 mcg/actuation nasal Symptoms spray,suspension cholecalciferol (vitamin D3) 50 50 mcg PO DAILY 06/03/22 04/23/23 mcg (2,000 unit) capsule diclofenac potassium 50 mg tablet 50 mg PO DAILY 11/03/22 04/23/23 triamcinolone acetonide 0.1 % 1 applic topical BID PRN 11/03/22 04/23/23 topical cream Allergies Allergy/AdvReac Type Severity Reaction Status Date / Time beef derived (bovine) Allergy Unknown nausea Verified 04/23/23 09:41 ioversol Allergy Unknown Hives Verified 04/23/23 09:41 contrast dye Allergy Mild Hives Uncoded 04/23/23 09:41 statin meds Allergy Mild joint pain Uncoded 04/23/23 09:41 Contrast Media Allergy Unknown Hives Uncoded 04/23/23 09:41 Review of Systems Review of Systems: CONSTITUTIONAL: Denies fever GASTROINTESTINAL: Reports abdominal pain, nausea. Denies vomiting, or diarrhea. GENITOURINARY: Denies dysuria or hematuria. All systems reviewed & are unremarkable except as noted in HPI and below PMFSH Past Medical History Medical History Acrochordon Anxiety Avulsion of skin of right lower leg Dyslipidemia Essential (primary) hypertension Hypothyroidism, unspecified Psoriasis with arthropathy Xerosis cutis Family History Family History Father Diabetes mellitus Hypertension Family history of malignant neoplasm Family history of cardiovascular disease Family history of lung cancer Mother Diabetes mellitus Family history of arthritis Family history of malignant neoplasm Family history of malignant neoplasm of cervix Grandparent Family history of psoriasis Family history of lung cancer Other Family history of elevated blood lipids Social History Social History Smoking packs per day: 1.75 Smoking cigarettes per day: 35.0 Years smoked: 25 Smoking pack-years: 43.75 Smoking status: Former smoker Tobacco type: cigarettes Smoking end date: 09/07/11 Alcohol intake: never Substance use: never Substance use type: does not use Lack of Transportation: No Lack of Food: Never True Current Housing: I Have Housing Concerned About Future Housing: No Difficulty Paying Gas/Electric Bills: No Difficulty Paying for Meds: No Currently Unemployed: No Education: Associate Degree Difficulty w/ Childcare or Family Care: No Living arrangements: with family Spiritual care concerns: No Exam Narrative: GENERAL: Well-appearing, well-nourished, and in no acute distress. HEAD: Normocephalic, atraumatic. EYES: EOMI. CHEST: Clear to auscultation. No respiratory distress. No wheezes rales or rhonchi HEART: Regular rate and rhythm. No murmur heard. Normal peripheral pulses. ABDOMEN: Soft, nondistended, normal active bowel sounds. Tenderness to palpation throughout the right side of the abdomen. No guarding. No CVA tenderness EXTREMITIES: Normal range of motion. No edema. SKIN: Warm, dry, no rash. NEURO: No focal deficits. Alert and oriented x3. PSYCH: Nor
== END 2023-04-23 14:33 | disposition home or self-care (01) ==
PROVIDERS: General Practice; Emergency Provider Physician Assistant; PCP Family Medicine
DX: K57.32 Diverticulitis of large intestine without perforation or abscess without bleeding (principal); R74.8 Abnormal levels of other serum enzymes; I10 Essential (primary) hypertension; E78.5 Hyperlipidemia, unspecified; E03.9 Hypothyroidism, unspecified; L40.50 Arthropathic psoriasis, unspecified; L85.3 Xerosis cutis; Z87.891 Personal history of nicotine dependence
CPT/HCPCS: 36415; 74176; 80053; 81001; 83690; 85025; 87086; 96360; 99284; J7030

== ENCOUNTER 2024-01-19 07:32 | Outpatient (CLI) | payer OTHER, SELFPAY ==
--- NOTE | ~2024-01-19 | MM_ITS ---
EXAMINATION: MM screening [facility] BI w benson HISTORY: Screening mammogram TECHNIQUE: Craniocaudal and mediolateral oblique 3-D tomosynthesis images were obtained and synthetic 2-D images were generated. CAD analysis was submitted and interpreted. COMPARISON: 11/08/2022, 05/11/2021 bilateral screening mammogram examinations BREAST PARENCHYMAL COMPOSITION: There are scattered areas of fibroglandular density. FINDINGS: There is no evidence of suspicious mass, calcification, or architectural distortion to sugg est malignancy in either breast. There has been no suspicious interval change. IMPRESSION: 1. No mammographic evidence of malignancy. 2. Recommend routine screening mammography in one year. BI-RADS Category 1: Negative Reviewed, dictated and finalized at location A.
== END 2024-01-19 07:33 | disposition home or self-care (01) ==
PROVIDERS: PCP Family Medicine; Visit Provider Family Medicine
DX: Z12.31 Encounter for screening mammogram for malignant neoplasm of breast (principal)
CPT/HCPCS: 77063; 77067

== ENCOUNTER 2024-06-08 11:00 | Outpatient (CLI) | payer OTHER, SELFPAY ==
[2024-06-08 18:46] LABS: Kit Draw Collected
== END 2024-06-08 11:01 | disposition home or self-care (01) ==
LOC: ANHGOSHLAB 11:02
PROVIDERS: PCP Family Medicine; Visit Provider Family Medicine
DX: E03.9 Hypothyroidism, unspecified (principal)
CPT/HCPCS: 36415

== ENCOUNTER 2024-06-28 11:15 | Outpatient (CLI) | payer OTHER, SELFPAY ==
--- NOTE | ~2024-06-28 | MMUS_ITS ---
EXAMINATION: MM diagnostic [facility] LT w benson, US breast LT complete HISTORY: Left breast lump. TECHNIQUE: Additional 3-D tomosynthesis images of the left breast were performed and synthetic 2-D im ages were generated. CAD analysis was submitted and interpreted. High resolution complete left breast ultrasound was performed. COMPARISON: Comparison to multiple prior studies sequentially, with oldest reviewed study dated 12/19. BREAST PARENCHYMAL COMPOSITION: Not dense: There are scattered areas of fibroglandular density. FINDINGS: MAMMOGRAPHIC FINDINGS: There is developing architectural distortion and asymmetry in the upper outer quadrant of the left br east posteriorly. No discrete mass identified. No suspicious calcifications. ULTRASOUND: Complete US of all 4 quadrants of the left breast/s and retroareolar region was reviewed. In the axil la there is an enlarged 2 cm lymph node with cortical thickening. Cortex measures 4 mm. At 3:00, 12 c m from the nipple in the area of palpable concern there is an irregular shaped superficial hypoechoic 9 mm mass without significant posterior features or internal vascularity. IMPRESSION: 1. Irregular shaped hypoechoic 9 mm left breast mass at 3:00, 12 cm from the nipple. Abnormal left ax illary lymph node with cortical thickening. 2. Recommend ultrasound guided biopsy of each of these lesions. BI-RADS category 4, suspicious findings. Reviewed, dictated and finalized at location B. IMPRESSION: 1. Irregular shaped hypoechoic 9 mm left breast mass at 3:00, 12 cm from the ni pple. Abnormal left axillary lymph node with cortical thickening. 2. Recommend ultrasound guided biopsy of each of these lesions. BI-RADS category 4, suspicious findings.
== END 2024-06-28 11:16 | disposition home or self-care (01) ==
LOC: ANHIMG 11:16
PROVIDERS: PCP Family Medicine; Visit Provider Family Medicine
DX: N63.20 Unspecified lump in the left breast, unspecified quadrant (principal); R92.8 Other abnormal and inconclusive findings on diagnostic imaging of breast
CPT/HCPCS: 76641; 77061; 77065; G0279

== ENCOUNTER 2024-08-01 07:50 | Outpatient (CLI) | payer OTHER, SELFPAY ==
--- NOTE | ~2024-08-01 | US_ITS ---
Please refer to ultrasound breast biopsy dated 08/01/2024 report for details. Reviewed, dictated and finalized at location B. AURANT ATTENDANT
--- NOTE | ~2024-08-01 | MMUS_ITS ---
EXAMINATION: US GUIDED NEEDLE BIOPSY WITH VACUUM ASSISTANCE DATE: 08/01/2024 09:46 WIRE HANGER INDICATION: Left breast mass seen on prior examination. Left axillary lymphadenopathy. Ultrasound-gu ided core biopsy is requested to evaluate for malignancy. BREAST PARENCHYMAL COMPOSITION: Not dense: There are scattered areas of fibroglandular density. TECHNIQUE AND FINDINGS: The risks and potential benefits of the procedure were discussed with the patient, and written inform ed consent was obtained. After sterile preparation of the left breast, 1% lidocaine was utilized for local anesthesia. 1% lidocaine with epinephrine was used for deep anesthesia. A 10G vacuum-assisted biopsy gun needle was advanced through to the outer edge of the region of inter est from a superior lateral approach utilizing sonographic guidance. A total of 4 tissue core sample s were obtained through the lesion. An tissue marker clip was then placed at the biopsy site. Hemost asis was achieved. A 10G vacuum-assisted biopsy gun needle was advanced through to the outer edge of the region of inter est from a axillary approach utilizing sonographic guidance. A total of 4 tissue core samples were o btained through the lesion. An Inrad tissue marker clip was then placed at the biopsy site. Hemostas is was achieved. The patient tolerated procedure well and there was no evidence of immediate complication. The patien t was given verbal instructions partly is from the department. Left breast mammograms to document ti ssue marker clip placement. The tissue samples were submitted to surgical pathology for histologic an alysis. IMPRESSION: 1. Successful ultrasound-guided vacuum-assisted biopsy of left breast and axillary masses with post procedure mammogram for marker placement. Please refer to pathology report for histologic analysis. Reviewed, dictated and finalized at location [] HANGER IMPRESSION: 1. Successful ultrasound-guided vacuum-assisted biopsy of left breast and axil rachana masses with post procedure mammogram for marker placement. Please refer to pathology report for histologic analysis.
== END 2024-08-01 07:51 | disposition home or self-care (01) ==
PROVIDERS: PCP Family Medicine; Visit Provider Family Medicine
DX: D24.2 Benign neoplasm of left breast (principal); N64.1 Fat necrosis of breast; R92.8 Other abnormal and inconclusive findings on diagnostic imaging of breast
CPT/HCPCS: 19083; 19084; 77065; 88305; A4648

== ENCOUNTER 2024-09-06 07:43 | Outpatient (RCR) | payer OTHER, SELFPAY ==
[2024-06-09 10:03] VITALS: BMI 33.2
== END 2024-09-07 23:59 | disposition home or self-care (01) ==
LOC: ANHWOC 07:43
PROVIDERS: PCP Family Medicine; Visit Provider Family Medicine
DX: T86.829 Unspecified complication of skin graft (allograft) (autograft) (principal)
CPT/HCPCS: 99213; 99214; 99215; A9270; G0463

== ENCOUNTER 2024-10-18 09:19 | Outpatient (CLI) | payer OTHER, SELFPAY ==
--- NOTE | ~2024-10-18 | XR_ITS ---
EXAMINATION: XR knee RT min 4V DATE: 10/18/2024 09:41 INDICATION: Unilateral primary osteoarthritis, right knee. TECHNIQUE: 4 views of right knee including weight-bearing views were obtained. COMPARISON: Right knee radiographs 11/25/2023 FINDINGS: There is varus angulation at the knee. No fracture. There is severe osteoarthritis of media l compartment and mild osteoarthritis of lateral and patellofemoral compartments. No knee joint effus ion. IMPRESSION: 1. Severe right knee osteoarthritis. Reviewed, dictated and finalized at location A. L CUTTER
--- OUTSIDE RECORDS SUMMARY | 2024-10-18 10:06 | XMS_ITS | Referral Summary ---
Author Organization [facility] Address [address] [facility] [place] [address] Care Team Providers Care Election Clerk Name Role Phone Bhavna Menon MD Primary Care Provider [phone] Dell Lynn MD Unavailable [phone] Source Comments [facility],non-owned Affiliates and Associated Physician Practices is amultiple site organization consisting of ambulatory clinics and hospital sitesin [place], [place], [place] and [place]. This disclosure is being madepursuant to the Care Everywhere program and may not contain all information available regarding this patient. Last updated 18.[facility] Encounters Date Type Department Care Team Description 09/13/2024 Refill [facility] - Rheumatology [address] [place] [phone] Beth Varghese MD MEDICATION REFILL 08/29/2024 Refill [facility] [address] [place] [phone] Beth Varghese MD MEDICATION REFILL 08/26/2024 Refill [facility] [address] [place] [phone] Beth Varghese MD MEDICATION REFILL 08/19/2024 Orders Only [facility] [address] [place] [phone] Beth Varghese MD Psoriatic arthritis ([facility]); Encounter for therapeutic drug monitoring; High risk medications (not anticoagulants) long-term use 07/22/2024 Orders Only [facility] - Rheumatology [address] [place] [address], [facility] [place] [address] Beth Varghese MD Psoriatic arthritis ([facility]); Encounter for therapeutic drug monitoring; High risk medications (not anticoagulants) long-term use from Last 3 Months Allergies Active Allergy Reactions Criticality Noted Date Comments Contrast-Gadolinium Agents For Mri Urticaria Medium 02/28/2017 Iohexol Other,Shortness of Breath High 10/27/2016 Hmg-Coa-R Inhibitors Other Medium 06/11/2022 Increase in joint pain. Tirzepatide GI Discomfort,Nausea and/or Vomiting Low 01/25/2024 Nausea & Vomiting Medications * Be aware that medications may not be up to date on this document. Alwaysverify current medications with the patient. Medication Sig Dispensed Refills Start Date End Date Status Cholecalciferol (Vitamin D) 50 MCG (1999) capsule Take 1 (one) capsule by mouth once daily Active ezetimibe (Zetia) 10 MG tablet Take 1 (one) tablet by mouth once daily Active lisinopril (Prinivil; Zestril) 20 MG tablet Take 1 (one) tablet by mouth once daily 11/21/2022 Active Humira Pen 40 MG/0.4ML injection 09/03/2023 Active apixaban (Eliquis) 5 MG tablet Take 1 (one) tablet by mouth 2 times daily 03/08/2024 Active escitalopram (Lexapro) 10 MG tablet 1 (one) tablet by Per G Tube route once daily 05/27/2024 Active insulin glargine (Lantus/Semglee) 100 units/ml injection Inject 12 (twelve) Units subcutaneously once daily 03/08/2024 Active insulin lispro (HumaLOG) 100 UNIT/ML vial Inject 2 (two) Units to 10 (ten) Units subcutaneously once daily 03/08/2024 Active insulin regular human (HumuLIN R; NovoLIN R) 100 UNIT/ML injection Inject 2 (two) Units to 10 (ten) Units subcutaneously once daily 03/08/2024 Active melatonin 3 MG tablet Take 2 (two) tablets by mouth at bedtime 03/08/2024 Active mirtazapine (Remeron) 15 MG tablet Take 1 (one) tablet by mouth at bedtime 06/29/2024 Active oxyCODONE, immediate release, (Roxicodone) 5 MG tablet TAKE 1 TABLET BY MOUTH EVERY 6 HOURS NEEDED FOR MODERATE TO SEVERE PAIN Active tamsulosin (Flomax) 0.4 MG capsule Take 1 (one) capsule by mouth once daily Active levothyroxine (Synthroid) 150 MCG tablet 1 (one) tablet by Per G Tube route once daily 05/27/2024 Active nystatin (Mycostatin) 698842 UNIT/GM powder Apply to affected area 3 times daily Active acetaminophen (Tylenol) 325 MG tablet Take 1 (one) tablet by mouth every 4 hours as needed for Fever or Pain Maximum allowable Acetaminophen amount = 4 Grams (4000 mg) / 24 hours. Active sulfaSALAzine EC (Azulfidine Entab) 500 MG tablet Take 1 (one) tablet by mouth 2 times daily with morning and evening meal 180 tablet 1 09/13/2024 Active Active Problems Problem Noted Date Diagnosed Date REYES (nonalcoholic steatohepatitis) 11/26/2022 Encounter for long-term (cur rent) use of high-risk medication 06/26/2018 Psoriatic arthritis 04/15/2017 Therapeutic drug monitoring 12/03/2016 Psoriasis 10/27/2016 Polyarthralgia 10/27/2016 Immunizations Name Administration Dates Next Due FLU, HISTORIC VACCINE 06/12/2017 INFLUENZA VACCINE 05/31/2021 INFLUENZA VACCINE, QUADR. (F LUZONE; FLULAVAL; FLUARIX; AFLURIA QUADRIVALENT; 6MO+), 0.5 ML (IIV4) 05/12/2020,05/25/2019,06/04/2018 Pneumococcal Pcv13 Conj 12/09/2016 Social History Tobacco Use Types Packs/Day Years Used Date Smoking Tobacco: Former Smokeless Tobacco: Never Alcohol Use Standard Drinks/Week Comments No 0 (1 standard drink = 0.6 oz pur e alcohol) PHQ-2 Answer Date Recorded PHQ2 TOTAL SCORE 1 07/23/2021 Sex and Gender Information Value Date Recorded Sex Assigned at Not on file Gender Identity Not on file Sexual Orientation Not on file Last Filed Vital Signs Vital Sign Reading Time Taken Comments Blood Pressure 116/58 06/30/2024 9:26 AM CDT Pulse 54 06/30/2024 9:26 AM CDT Temperature 36.3 C (97.3 F) 06/30/2024 9:26 AM CDT Respiratory Rate 12 11/27/2022 5:30 PM CDT Oxygen Saturation 98% 06/30/2024 9:26 AM CDT Inhaled Oxygen Concentration - - Weight 99.1 kg (218 lb 6.4 oz) 06/30/2024 9:26 A M CDT Height 170.2 cm (5' 7.01 ) 06/30/2024 9:26 AM CD T Body Mass Index 34.2 06/30/2024 9:26 AM CDT Functional Status Functional Status Response Date of Assess ment Is person deaf or have obed us hearing difficulty? No 11/27/2022 Is person blind or have seri ous difficulty seeing? No 11/27/2022 Does person have serious dif ficulty walking/climbing stairs? Yes-due to knee issues 11/27/2022 Does person have difficulty dressing/bathing? No 11/27/2022 Does person have difficulty doing errands alone? No 11/27/2022 Cognitive Status Response Date of Assessm ent Does person have difficulty concentrating/remembering/making decisions? No 11/27/2022 Plan of Treatment Upcoming Encounters Date Type Department Care Team (Late st Contact Info) Description 11/02/2024 2:00 PM TOLL TEST WORKER Office Visit [facility] - Rheumatology [address] [place] [phone] Beth Varghese MD [address] [place] [address] [place] [phone] Procedures Procedure Name Priority Date/Time Associated Diagnosis Comments HEPATITIS C AB W/RFLX TO HCV RNA QN PCR 10/30/2023 8:28 AM TOLL TEST WORKER COMPREHENSIVE METABOLIC PANEL Routine 09/09/2023 8:06 AM TOLL TEST WORKER Psoriatic arthritis (HCC) Encounter for therapeutic drug monitoring High risk medications (not anticoagulants) long-term use Transaminitis Fatty liver Encounter for long-term (current) use of medications LIPID PROFILE Routine 10/30/2022 7:19 AM TOLL TEST WORKER REYES (nonalcoholic steatohepatitis) from Last 3 Months or Most Recently Relevant to Health Maintenance Results * HEPATITIS C AB W/RFLX TO HCV RNA QN PCR (10/30/2023 8:28 AM TOLL TEST WORKER) Hepatitis C Antibody NON-REACTI VE NON-REACT [facility] Comment: HCV antibody was non-reactive. There is no laboratory evidence of HCV infection. In most cases, no further action is required. However, if recent HCV exposure is suspected, a test for HCV RNA (test code 47178) is suggested. For additional information please refer to http://education.HealthSpot/faq/JLU87s2 (This link is being provided for informational/ educational purposes only.) Test Performed at: [facility] [id number] [place] [address] HALEIGH OLIVAREZ MD 10/30/2023 8:28 AM TOLL TEST WORKER 10/30/2023 8:30 AM TOLL TEST WORKER Beth Varghese MD LAB - CHEMISTR Y ORDERABLES [facility] [address] [place] [address] * (ABNORMAL) COMPREHENSIVE METABOLIC PANEL (09/09/2023 8:06 AM TOLL TEST WORKER) Glucose 110(H) 65 - 99 mg/dL [facility] Comment: Fasting reference interval For someone without known diabetes, a glucose value between 100 and 125 mg/dL is consistent with prediabetes and should be confirmed with a follow-up test. BUN 14 7 - 25 mg/dL [facility] Creatinine 0.78 0.50 - 1.05 mg/dL [facility] eGFR by Cystatin C 87 > OR = 60 mL/min/1. 73m2 [facility] BUN/Creatinine Ratio SEE NOTE: 6 - 22 (calc) [facility] Comment: Not Reported: BUN and Creatinine are within reference range. Sodium 138 135 - 146 mmol/L [facility] Potassium 4.4 3.5 - 5.3 mmol/L [facility] Chloride 100 98 - 110 mmol/L [facility] CO2 30 20 - 32 mmol/L [facility] Calcium 9.5 8.6 - 10.4 mg/dL [facility] Protein Total 7.1 6.1 - 8.1 g/dL [facility] Albumin 4.1 3.6 - 5.1 g/dL [facility] Globulin Total 3.0 1.9 - 3.7 g/dL (calc) [facility] Albumin/Globulin Ratio 1.4 1.0 - 2.5 (calc) [facility] Bilirubin Total 0.3 0.2 - 1.2 mg/dL [facility] Alkaline Phosphatase 82 37 - 153 U/L [facility] AST 17 10 - 35 U/L [facility] ALT 24 6 - 29 U/L [facility] Comment: Test Performed at: [facility] [id number] [place] [address] HALEIGH OLIVAREZ MD Blood BLOOD SPECIMEN / Unknown 09/09/2023 8:06 AM TOLL TEST WORKER 09/09/2023 8:06 AM TOLL TEST WORKER Beth Varghese MD LAB - CHEMISTR Y ORDERABLES Performing Organization Address City/State/[facility] Co de Phone Number [facility] [address] [place] [address] * (ABNORMAL) LIPID PROFILE (10/30/2022 7:19 AM TOLL TEST WORKER) Cholesterol 185 <200 mg/dL [facility] HDL Cholesterol 56 > OR = 50 mg/dL [facility] Triglycerides 132 <150 mg/dL [facility] LDL Calculated 106(H) mg/dL (calc) [facility] Comment: Reference range: <100 Desirable range <100 mg/dL for primary prevention; <70 mg/dL for patients with CHD or diabetic patients with > or = 2 CHD risk factors. LDL-C is now calculated using the Syd-May calculation, which is a validated novel method providing better accuracy than the Friedewald equation in the estimation of LDL-C. Syd PEREZ et al. AMEENA. 2013;310(19): 7575-1890 (http://education.Viroblock.Taggstar/faq/MWI540) CHOL/HDLC RATIO 3.3 <5.0 (calc) [facility] Non HDL Cholesterol 129 <130 mg/dL (calc) [facility] Comment: For patients with diabetes plus 1 major ASCVD risk factor, treating to a non-HDL-C goal of <100 mg/dL (LDL-C of <70 mg/dL) is considered a therapeutic option. Test Performed at: [facility] [address] [facility] [place] [address] HALEIGH OLIVAREZ MD Blood BLOOD SPECIMEN / Unknown 10/30/2022 7:19 AM TOLL TEST WORKER 10/30/2022 7:20 AM TOLL TEST WORKER Jazmyen Maldonado MD LAB - CHEMISTRY [place] [facility] [address] [place] [address] from Last 3 Months or Most Recently Relevant to Health Maintenance Care Teams Election Clerk Relationship Specialty Start Date End Date Bhavna Menon MD [address] [place] [address] PCP - General Family Medicine 10/23/22 Dell Lynn MD [address] [place] [address] Orthopedic Surgery 10/23/22
--- OUTSIDE RECORDS SUMMARY | 2024-10-18 10:06 | XMS_ITS | Encounter Summary ---
Author Organization [facility] Address [address] [place] [address] Care Team Providers Care Topographical Surveyor Name Role Phone Loan Morales MD Primary Care Provider [phone] Bhavna Menon MD Primary Care Provider [phone] Dell Lynn MD Unavailable [phone] Reason for Visit * Reason Onset Date Comments MEDICATION REFILL 09/13/2020 MEDICATION REFILL 09/20/2020 Encounter Details Date Type Department Care Team (Late st Contact Info) Description 09/13/2020 Telephone [facility] [address] [facility] [place] [address] Jaida Lira MD [address] [place] [address] MEDICATION REFILL; MEDICATION REFILL Social History Tobacco Use Types Packs/Day Years Used Date Smoking Tobacco: Former Smokeless Tobacco: Never Alcohol Use Standard Drinks/Week Comments No 0 (1 standard drink = 0.6 oz pur e alcohol) Sex and Gender Information Value Date Recorded Sex Assigned at Not on file Gender Identity Not on file Sexual Orientation Not on file documented as of this encounter Miscellaneous Notes * Telephone Encounter - Zandra Jose LPN - 09/20/2020 12:49 PM DIE CUTTING MACHINE OPERATOR Fax and phone call from [facility] regarding Patient's Humira. Clarification needed on dose form-syringes ordered. Contacted Patient, she uses [facility]. Form printed and faxed to [facility] for MD to sign and fax to [facility]. CUTTING MACHINE OPERATOR * Telephone Encounter - Franchesca Antoine - 09/13/2020 9:17 AM CST Refill Request Vivian Godfreykianna TEMI: 05/15/20 NOV scheduled:10/30/20 LRF: 08/16/19 Qty Disp: 12 syringe # of refills:3 Allergies: Allergies Allergen Reactions ??? Contrast-Gadolinium Agents For Mri Urticaria ??? Iohexol Other and Shortness of Breath Pended Medication Order: Requested Prescriptions Pending Prescriptions Disp Refills ??? adalimumab (HUMIRA) 40 MG/0.4ML injection 12 syringe 3 Sig: Inject 0.4 mL subcutaneously every 7 days Reasons: Plaque Psoriasis, Psoriasis associated withArthritis CUTTING MACHINE OPERATOR documented in this encounter Plan of Treatment Upcoming Encounters Date Type Department Care Team (Late st Contact Info) Description 11/02/2024 2:00 PM DIE CUTTING MACHINE OPERATOR Office Visit [facility] - Rheumatology [address] [place] [address], [place] [address] Beth Varghese MD [address] [place] [address] DIV [place] [phone] documented as of this encounter Visit Diagnoses Diagnosis Psoriatic arthritis (HCC)- Primary Psoriatic arthropathy documented in this encounter Care Teams Topographical Surveyor Relationship Specialty Start Date End Date Loan Morales MD [address] [place] [address] PCP - General 05/11/18 10/22/22 Bhavna Menon MD [address] [address] PCP - General Family Medicine 10/23/22 Dell Lynn MD [address] [place] [address] Orthopedic Surgery 10/23/22 documented as of this encounter
--- OUTSIDE RECORDS SUMMARY | 2024-10-18 10:06 | XMS_ITS | Clinical Summary ---
Author Organization [facility] Address [address] [place] [address] Care Team Providers Care Meeting Specialist Name Role Phone Bhavna Menon MD Primary Care Provider [phone] Dell Lynn MD Unavailable [phone] Source Comments [facility],non-owned Affiliates and Associated Physician Practices is amultiple site organization consisting of ambulatory clinics and hospital sitesin [place], [place], [place] and [place]. This disclosure is being madepursuant to the Care Everywhere program and may not contain all information available regarding this patient. Last updated 18.[facility] Allergies Active Allergy Reactions Criticality Noted Date [...] route once daily 05/27/2024 Active nystatin (Mycostatin) 293363 UNIT/GM powder Apply to affected area 3 [...] drug monitoring 12/03/2016 Psoriasis 10/27/2016 Polyarthralgia 10/27/2016 Encounters Date Type Department Care Team Description 09/13/2024 Refill [facility] [address] [place] [phone] Beth Varghese MD MEDICATION REFILL 08/29/2024 Refill [facility] [address] [place] [phone] Beth Varghese MD MEDICATION REFILL 08/26/2024 Refill [facility] Rhe[facility] [address] [place] [phone] Beth Varghese MD MEDICATION REFILL 08/19/2024 Orders Only [facility] - Rheumatology [address] [place] [phone] Beth aVrghese MD Psoriatic arthritis ([facility]); Encounter for therapeutic drug monitoring; High risk medications (not anticoagulants) long-term use 07/22/2024 Orders Only [facility] - Rheumatology [address] [place] [phone] Beth Varghese MD Psoriatic arthritis (HCC); Encounter for therapeutic drug monitoring; High risk medications (not anticoagulants) long-term use from Last 3 Months Immunizations Name Administration Dates Next Due FLU, HISTORIC VACCINE 06/12/2017 INFLUENZA VACCINE 05/31/2021 INFLUENZA VACCINE, QUADR. (F LUZONE; FLULAVAL; FLUARIX; AFLURIA QUADRIVALENT; 6MO+), 0.5 ML (IIV4) 05/12/2020,05/25/2019,06/04/2018 Pneumococcal Pcv13 Conj 12/09/2016 Family History Medical History Relation Name Comments Cancer - Lung Father Diabetes - Type 2 Father Diabetes - Type 2 Mother Relation Name Status Comments Father Mother Social History Tobacco Use Types Packs/Day Years [...] Mass Index 34.2 06/30/2024 9:26 AM CDT Plan of Treatment Upcoming Encounters Date Type Department Care Team (Late st Contact Info) Description 11/02/2024 2:00 PM OSTEOPATHIC PHYSICIAN Office Visit [facility] - Rheumatology [address] [place] [address], [place] [address] Beth Varghese MD [address] [place] [address] [place] [phone] Health Maintenance Due Date Last Done Comments COLOGUARD (AGES 45-75) - COLON CA SCREENING 1963 COLON MONITORING 1963 COLONOSCOPY - COLON CA SCREENING 1963 CT COLONOGRAPHY - COLON CA SCREENING 1963 Colorectal Cancer Screening 1963 FIT - COLON CA SCREENING 1963 FLEX SIG - COLON CA SCREENING 1963 MAMMOGRAM 1963 PAP SMEAR 1963 HIV SCREENING 1978 DTAP/TDAP/TD VACCINES (1 - Tdap) 1982 ZOSTER VACCINE (1 of 2) 2013 PNEUMOCOCCAL VACCINE 50+ (2 of 2 - PPSV23) 12/09/2017 12/09/2016 COVID-19 VACCINE ( - season) 2024 08/06/2021, 12/01/2020, 11/08/2020 INFLUENZA VACCINE (#1) 2024 2, 05/31/2021, 05/12/2020, Additional history exists DEPRESSION SCREENING 09/07/2024 SCREENING FOR DIABETES 09/09/2026 4, 05/08/2023, 01/06/2023, Additional history exists LIPID TESTING 10/30/2027 10/30/2022 Respiratory Syncytial Virus (RSV) Vaccine Pt: or over 60 yrs (1 - 1-dose 75+ series) 2038 PNEUMOCOCCAL VACCINE Aged Out 12/09/2016 No long er eligible based on patient's age to complete this topic HEPATITIS C SCREENING Completed 10/30/2023 , 10/20/2022, 10/27/2016 HEPATITIS B VACCINE Aged Out No longe r eligible based on patient's age to complete this topic HIB VACCINE Aged Out No longer eligi ble based on patient's age to complete this topic HPV VACCINE Aged Out No longer eligi ble based on patient's age to complete this topic MENINGOCOCCAL (Group B) VACCINE Aged Out No longer eligible based on patient's age to complete this topic MENINGOCOCCAL VACCINE Aged Out No leena noah eligible based on patient's age to complete this topic Procedures Procedure Name Priority Date/Time Associated Diagnosis Comments HEPATITIS C AB W/RFLX TO HCV RNA QN PCR 10/30/2023 8:28 AM OSTEOPATHIC PHYSICIAN COMPREHENSIVE METABOLIC PANEL Routine 09/09/2023 8:06 AM OSTEOPATHIC PHYSICIAN Psoriatic arthritis (HCC) Encounter for therapeutic drug monitoring High risk medications (not anticoagulants) long-term use Transaminitis Fatty liver Encounter for long-term (current) use of medications LIPID PROFILE Routine 10/30/2022 7:19 AM OSTEOPATHIC PHYSICIAN REYES (nonalcoholic steatohepatitis) from Last 3 Months or Most Recently Relevant to Health Maintenance Results * HEPATITIS C AB W/RFLX TO HCV RNA QN PCR (10/30/2023 8:28 AM OSTEOPATHIC PHYSICIAN) Hepatitis C Antibody NON-REACTI VE NON-REACT [facility] Comment: HCV antibody was non-reactive. There is no laboratory evidence of HCV infection. In most cases, no further action is required. However, if recent HCV exposure is suspected, a test for HCV RNA (test code 97339) is suggested. For additional information please refer to http://education.Clout.Zipari/faq/IKH50x1 (This link is being provided for informational/ educational purposes only.) Test Performed at: [facility] [id number] [place] [address] HALEIGH OLIVAREZ MD 10/30/2023 8:28 AM OSTEOPATHIC PHYSICIAN 10/30/2023 8:30 AM OSTEOPATHIC PHYSICIAN Beth Varghese MD LAB - CHEMISTR Y ORDERABLES [facility] [address] [place] [address] * (ABNORMAL) COMPREHENSIVE METABOLIC PANEL (09/09/2023 8:06 AM OSTEOPATHIC PHYSICIAN) Glucose 110(H) 65 - 99 mg/dL [facility] [...] 29 U/L [facility] Comment: Test Performed at: [facility], [place] [address] HALEIGH OLIVAREZ MD Blood BLOOD SPECIMEN / Unknown 09/09/2023 8:06 AM OSTEOPATHIC PHYSICIAN 09/09/2023 8:06 AM OSTEOPATHIC PHYSICIAN Beth Varghese MD LAB - CHEMISTR Y ORDERABLES Performing Organization Address City/[facility]/ZIP Co de Phone Number [facility] [address] [place] [address] * (ABNORMAL) LIPID PROFILE (10/30/2022 7:19 AM OSTEOPATHIC PHYSICIAN) Cholesterol 185 <200 mg/dL [facility] HDL Cholesterol 56 > OR = 50 mg/dL [facility] Triglycerides 132 <150 mg/dL [facility] LDL Calculated 106(H) mg/dL (calc) [facility] Comment: Reference range: <100 Desirable range <100 mg/dL for primary prevention; <70 mg/dL for patients with CHD or diabetic patients with > or = 2 CHD risk factors. LDL-C is now calculated using the Syd-Olvera calculation, which is a validated novel method providing better accuracy than the Friedewald equation in the estimation of LDL-C. Syd SS et al. AMEENA. 2013;310(19): 5019-2207 (http://education.Omrix Biopharmaceuticals.Zipari/faq/MGC090) CHOL/HDLC RATIO 3.3 <5.0 (calc) [facility] Non HDL Cholesterol 129 <130 mg/dL (calc) [facility] Comment: For patients with diabetes plus 1 major ASCVD risk factor, treating to a non-HDL-C goal of <100 mg/dL (LDL-C of <70 mg/dL) is considered a therapeutic option. Test Performed at: [facility] [address] [facility] [place] [address] HALEIGH OLIVAREZ MD Blood BLOOD SPECIMEN / Unknown 10/30/2022 7:19 AM OSTEOPATHIC PHYSICIAN 10/30/2022 7:20 AM OSTEOPATHIC PHYSICIAN Jazmyne Maldonado MD LAB - CHEMISTRY ORDE DEEJAY Performing Organization Address City/[facility]/ZIP Co de Phone Number [facility] [address] [place] [address] from Last 3 Months or Most Recently Relevant to Health Maintenance Care Teams Meeting Specialist Relationship Specialty Start Date End Date Bhavna Menon MD [address] [place] [address] PCP - General Family Medicine 10/23/22 Dell Lynn MD [address] [place], [place] [address] Orthopedic Surgery 10/23/22
--- OUTSIDE RECORDS SUMMARY | 2024-10-18 10:06 | XMS_ITS | Patient Health Summary ---
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 This disclosure is being madepursuant to the Care Everywhere program and may not contain all information available regarding this patient. Last updated 18.[facility] Allergies * Contrast-Gadolinium Agents For Mri(Urticaria) -Medium Criticality * Iohexol(Other,Shortness of Breath) -High Criticality * Hmg-Coa-R Inhibitors(Other) -Medium Criticality * Tirzepatide(GI Discomfort,Nausea and/or Vomiting) -Low Criticality Medications * Be aware that medications may not be up to date on this document. Alwaysverify current medications with the patient. * Cholecalciferol (Vitamin D) 50 MCG (2000 UT) capsule Take 1 (one) capsule by mouth once daily * ezetimibe (Zetia) 10 MG tablet Take 1 (one) tablet by mouth once daily * lisinopril (Prinivil; Zestril) 20 MG tablet(Started 11/21/2022) Take 1 (one) tablet by mouth once daily * Humira Pen 40 MG/0.4ML injection(Started 09/03/2023) * apixaban (Eliquis) 5 MG tablet(Started 03/08/2024) Take 1 (one) tablet by mouth 2 times daily * escitalopram (Lexapro) 10 MG tablet(Started 05/27/2024) 1 (one) tablet by Per G Tube route once daily * insulin glargine (Lantus/Semglee) 100 units/ml injection(Started 03/08/2024) Inject 12 (twelve) Units subcutaneously once daily * insulin lispro (HumaLOG) 100 UNIT/ML vial(Started 03/08/2024) Inject 2 (two) Units to 10 (ten) Units subcutaneously once daily * insulin regular human (HumuLIN R; NovoLIN R) 100 UNIT/ML injection(Started 03/08/2024) Inject 2 (two) Units to 10 (ten) Units subcutaneously once daily * melatonin 3 MG tablet(Started 03/08/2024) Take 2 (two) tablets by mouth at bedtime * mirtazapine (Remeron) 15 MG tablet(Started 06/29/2024) Take 1 (one) tablet by mouth at bedtime * oxyCODONE, immediate release, (Roxicodone) 5 MG tablet TAKE 1 TABLET BY MOUTH EVERY 6 HOURS NEEDED FOR MODERATE TO SEVERE PAIN * tamsulosin (Flomax) 0.4 MG capsule Take 1 (one) capsule by mouth once daily * levothyroxine (Synthroid) 150 MCG tablet(Started 05/27/2024) 1 (one) tablet by Per G Tube route once daily * nystatin (Mycostatin) 173533 UNIT/GM powder Apply to affected area 3 times daily * acetaminophen (Tylenol) 325 MG tablet Take 1 (one) tablet by mouth every 4 hours as needed for Fever or Pain Maximum allowable Acetaminophen amount = 4 Grams (4000 mg) / 24 hours. * sulfaSALAzine EC (Azulfidine Entab) 500 MG tablet(Started 09/13/2024) Take 1 (one) tablet by mouth 2 times daily with morning and evening meal 1 refill by 09/13/2025 Active Problems Problem Noted Date Diagnosed Date REYES (nonalcoholic steatohepatitis) 11/26/2022 Encounter for long-term (cur rent) use of high-risk medication 06/26/2018 Psoriatic arthritis 04/15/2017 Therapeutic drug monitoring 12/03/2016 Psoriasis 10/27/2016 Polyarthralgia 10/27/2016 Immunizations * FLU, HISTORIC VACCINE(Given 06/12/2017) * INFLUENZA VACCINE(Given 05/31/2021) * INFLUENZA VACCINE, QUADR. (FLUZONE; FLULAVAL; FLUARIX; AFLURIA QUADRIVALENT; 6MO+), 0.5 ML (IIV4)(Given 05/12/2020, 05/25/2019, 06/04/2018) * Pneumococcal Pcv13 Conj(Given 12/09/2016) Social History Tobacco Use Types Packs/Day Years [...] Mass Index 34.2 06/30/2024 9:26 AM CDT Procedures * HEPATITIS C AB W/RFLX TO HCV RNA QN PCR(Performed 10/30/2023) * TB TEST T SPOT(Performed 10/30/2023) * ERYTHROCYTE SEDIMENTATION RATE(Performed 09/09/2023) Performed for Psoriatic arthritis (HCC), Encounter for therapeutic drug monitoring, High risk medications (not anticoagulants) long-term use, Transaminitis, Fatty liver, Encounter for long-term (current) use of medications * C-REACTIVE PROTEIN(Performed 09/09/2023) Performed for Psoriatic arthritis (HCC), Encounter for therapeutic drug monitoring, High risk medications (not anticoagulants) long-term use, Transaminitis, Fatty liver, Encounter for long-term (current) use of medications * CBC W AUTO DIFFERENTIAL(Performed 09/09/2023) Performed for Psoriatic arthritis (HCC), Encounter for therapeutic drug monitoring, High risk medications (not anticoagulants) long-term use, Transaminitis, Fatty liver, Encounter for long-term (current) use of medications * COMPREHENSIVE METABOLIC PANEL(Performed 09/09/2023) Performed for Psoriatic arthritis (HCC), Encounter for therapeutic drug monitoring, High risk medications (not anticoagulants) long-term use, Transaminitis, Fatty liver, Encounter for long-term (current) use of medications * URINALYSIS W/MICROSCOPIC REFLEX TO CULTURE(Performed 09/09/2023) Performed for Psoriatic arthritis ([facility]), Encounter for therapeutic drug monitoring * CULTURE URINE REFLEXED III(Performed 09/09/2023) * URINALYSIS W/MICROSCOPIC REFLEX TO CULTURE(Performed 05/08/2023) Performed for Psoriatic arthritis ([facility]), Encounter for therapeutic drug monitoring, High risk medications (not anticoagulants) long-term use, Transaminitis * ERYTHROCYTE SEDIMENTATION RATE(Performed 05/08/2023) Performed for Psoriatic arthritis (HCC), Encounter for therapeutic drug monitoring, High risk medications (not anticoagulants) long-term use, Transaminitis * C-REACTIVE PROTEIN(Performed 05/08/2023) Performed for Psoriatic arthritis ([facility]), Encounter for therapeutic drug monitoring, High risk medications (not anticoagulants) long-term use, Transaminitis * COMPREHENSIVE METABOLIC PANEL(Performed 05/08/2023) Performed for Psoriatic arthritis ([facility]), Encounter for therapeutic drug monitoring, High risk medications (not anticoagulants) long-term use, Transaminitis * CBC W AUTO DIFFERENTIAL(Performed 05/08/2023) Performed for Psoriatic arthritis (HCC), Encounter for therapeutic drug monitoring, High risk medications (not anticoagulants) long-term use, Transaminitis * CULTURE URINE(Performed 05/08/2023) * CULTURE URINE REFLEXED II(Performed 05/08/2023) * URINALYSIS W/MICROSCOPIC REFLEX TO CULTURE(Performed 01/06/2023) Performed for Psoriatic arthritis ([facility]), Encounter for therapeutic drug monitoring * C-REACTIVE PROTEIN(Performed 01/06/2023) Performed for Psoriatic arthritis ([facility]), Encounter for therapeutic drug monitoring * ERYTHROCYTE SEDIMENTATION RATE(Performed 01/06/2023) Performed for Psoriatic arthritis (HCC), Encounter for therapeutic drug monitoring * COMPREHENSIVE METABOLIC PANEL(Performed 01/06/2023) Performed for Psoriatic arthritis (HCC), Encounter for therapeutic drug monitoring * CBC W AUTO DIFFERENTIAL(Performed 01/06/2023) Performed for Psoriatic arthritis (HCC), Encounter for therapeutic drug monitoring * CULTURE URINE(Performed 01/06/2023) * CULTURE URINE REFLEXED II(Performed 01/06/2023) * IR BIOPSY TRANSCATHETER(Performed 11/27/2022) Performed for REYES (nonalcoholic steatohepatitis) * PATHOLOGY TISSUE(Performed 11/27/2022) Performed for REYES (nonalcoholic steatohepatitis) * PT-INR [facility](Performed 11/27/2022) Performed for REYES (nonalcoholic steatohepatitis) * CBC W/O DIFFERENTIAL(Performed 11/27/2022) Performed for REYES (nonalcoholic steatohepatitis) * BIOPSY LIVER (NEEDLE/PERCUTANEOUS)(Performed 11/13/2022) Performed for REYES (nonalcoholic steatohepatitis) * HEPATITIS A ANTIBODY(Performed 10/30/2022) Performed for REYES (nonalcoholic steatohepatitis) * IGM BLOOD(Performed 10/30/2022) Performed for REYES (nonalcoholic steatohepatitis) * HEMOGLOBIN A1C(Performed 10/30/2022) Performed for REYES (nonalcoholic steatohepatitis) * LIPID PROFILE(Performed 10/30/2022) Performed for REYES (nonalcoholic steatohepatitis) * WAXPA-2-WQAPPHCYIYM BLOOD(Performed 10/30/2022) Performed for REYES (nonalcoholic steatohepatitis) * PT-INR(Performed 10/30/2022) Performed for REYES (nonalcoholic steatohepatitis) * ME LIVER ELASTOGRAPHY(Performed 10/23/2022) Performed for REYES (nonalcoholic steatohepatitis) * MITOCHONDRIAL ANTIBODY SCREEN(Performed 10/20/2022) Performed for Psoriatic arthritis (HCC), Encounter for therapeutic drug monitoring * HEPATITIS C AB W/RFLX TO HCV RNA QN PCR(Performed 10/20/2022) Performed for Psoriatic arthritis (HCC), Encounter for therapeutic drug monitoring * HEPATITIS B SURFACE ANTIGEN W RFLX CONFIRMATION(Performed 10/20/2022) Performed for Psoriatic arthritis (HCC), Encounter for therapeutic drug monitoring * HEPATITIS B SURFACE ANTIBODY(Performed 10/20/2022) Performed for Psoriatic arthritis (HCC), Encounter for therapeutic drug monitoring * HEPATITIS B CORE ANTIBODY TOTAL(Performed 10/20/2022) Performed for Psoriatic arthritis (HCC), Encounter for therapeutic drug monitoring * URINALYSIS W/MICROSCOPIC REFLEX TO CULTURE(Performed 09/11/2022) Performed for Psoriatic arthritis (HCC), Encounter for therapeutic drug monitoring, High risk medications (not anticoagulants) long-term use, Transaminitis * ERYTHROCYTE SEDIMENTATION RATE(Performed 09/11/2022) Performed for Psoriatic arthritis (HCC), Encounter for therapeutic drug monitoring, High risk medications (not anticoagulants) long-term use, Transaminitis * C-REACTIVE PROTEIN(Performed 09/11/2022) Performed for Psoriatic arthritis (HCC), Encounter for therapeutic drug monitoring, High risk medications (not anticoagulants) long-term use, Transaminitis * COMPREHENSIVE METABOLIC PANEL(Performed 09/11/2022) Performed for Psoriatic arthritis (HCC), Encounter for therapeutic drug monitoring, High risk medications (not anticoagulants) long-term use, Transaminitis * CBC W AUTO DIFFERENTIAL(Performed 09/11/2022) Performed for Psoriatic arthritis (HCC), Encounter for therapeutic drug monitoring, High risk medications (not anticoagulants) long-term use, Transaminitis * CULTURE URINE(Performed 09/11/2022) * CULTURE URINE REFLEXED II(Performed 09/11/2022) * IMAGING/RADIOLOGY/XRAY RESULTS ORDER(Performed 06/26/2022) * URINALYSIS W/MICROSCOPIC REFLEX TO CULTURE(Performed 05/27/2022) Performed for Psoriatic arthritis (HCC), Encounter for therapeutic drug monitoring, High risk medications (not anticoagulants) long-term use, Encounter for long-term (current) use of medications * ERYTHROCYTE SEDIMENTATION RATE(Performed 05/27/2022) Performed for Psoriatic arthritis (HCC), Encounter for therapeutic drug monitoring, High risk medications (not anticoagulants) long-term use, Encounter for long-term (current) use of medications * C-REACTIVE PROTEIN(Performed 05/27/2022) Performed for Psoriatic arthritis (HCC), Encounter for therapeutic drug monitoring, High risk medications (not anticoagulants) long-term use, Encounter for long-term (current) use of medications * CBC W AUTO DIFFERENTIAL(Performed 05/27/2022) Performed for Psoriatic arthritis (HCC), Encounter for therapeutic drug monitoring, High risk medications (not anticoagulants) long-term use, Encounter for long-term (current) use of medications * COMPREHENSIVE METABOLIC PANEL(Performed 05/27/2022) Performed for Psoriatic arthritis (HCC), Encounter for therapeutic drug monitoring, High risk medications (not anticoagulants) long-term use, Encounter for long-term (current) use of medications * CULTURE URINE(Performed 05/27/2022) * CULTURE URINE REFLEXED II(Performed 05/27/2022) * QUANTIFERON-TB GOLD PLUS 1-TUBE(Performed 04/28/2022) * C-REACTIVE PROTEIN(Performed 12/12/2021) * URINALYSIS W/MICROSCOPIC REFLEX TO CULTURE(Performed 12/12/2021) * CBC W AUTO DIFFERENTIAL(Performed 12/12/2021) * ERYTHROCYTE SEDIMENTATION RATE(Performed 12/12/2021) * COMPREHENSIVE METABOLIC PANEL(Performed 12/12/2021) * CULTURE URINE(Performed 12/12/2021) * CULTURE URINE REFLEXED II(Performed 12/12/2021) * URINALYSIS W/MICROSCOPIC REFLEX TO CULTURE(Performed 07/16/2021) Performed for Psoriatic arthritis (HCC), Encounter for therapeutic drug monitoring, Encounter for long-term (current) use of medications * ERYTHROCYTE SEDIMENTATION RATE(Performed 07/16/2021) Performed for Psoriatic arthritis ([facility]), Encounter for therapeutic drug monitoring, Encounter for long-term (current) use of medications * C-REACTIVE PROTEIN(Performed 07/16/2021) Performed for Psoriatic arthritis ([facility]), Encounter for therapeutic drug monitoring, Encounter for long-term (current) use of medications * COMPREHENSIVE METABOLIC PANEL(Performed 07/16/2021) Performed for Psoriatic arthritis ([facility]), Encounter for therapeutic drug monitoring, Encounter for long-term (current) use of medications * CBC W AUTO DIFFERENTIAL(Performed 07/16/2021) Performed for Psoriatic arthritis (HCC), Encounter for therapeutic drug monitoring, Encounter for long-term (current) use of medications * CULTURE URINE(Performed 07/16/2021) * CULTURE URINE REFLEXED II(Performed 07/16/2021) * C-REACTIVE PROTEIN(Performed 02/06/2021) * CBC W AUTO DIFFERENTIAL(Performed 02/06/2021) * ERYTHROCYTE SEDIMENTATION RATE(Performed 02/06/2021) * URINALYSIS W/MICROSCOPIC REFLEX TO CULTURE(Performed 02/06/2021) * COMPREHENSIVE METABOLIC PANEL(Performed 02/06/2021) * CULTURE URINE REFLEXED I(Performed 02/06/2021) * IMAGING/RADIOLOGY/XRAY RESULTS ORDER(Performed 10/31/2020) * URINALYSIS W/MICROSCOPIC REFLEX TO CULTURE(Performed 10/25/2020) Performed for Psoriatic arthritis ([facility]), Encounter for long-term (current) use of medications, Encounter for therapeutic drug monitoring, Therapeutic drug monitoring * ERYTHROCYTE SEDIMENTATION RATE(Performed 10/25/2020) Performed for Psoriatic arthritis ([facility]), Encounter for long-term (current) use of medications, Encounter for therapeutic drug monitoring, Therapeutic drug monitoring * C-REACTIVE PROTEIN(Performed 10/25/2020) Performed for Psoriatic arthritis ([facility]), Encounter for long-term (current) use of medications, Encounter for therapeutic drug monitoring, Therapeutic drug monitoring * COMPREHENSIVE METABOLIC PANEL(Performed 10/25/2020) Performed for Psoriatic arthritis ([facility]), Encounter for long-term (current) use of medications, Encounter for therapeutic drug monitoring, Therapeutic drug monitoring * CBC W AUTO DIFFERENTIAL(Performed 10/25/2020) Performed for Psoriatic arthritis ([facility]), Encounter for long-term (current) use of medications, Encounter for therapeutic drug monitoring, Therapeutic drug monitoring * CULTURE URINE REFLEXED I(Performed 10/25/2020) * URINALYSIS W/MICROSCOPIC REFLEX TO CULTURE(Performed 05/11/2020) Performed for Psoriatic arthritis ([facility]), Encounter for long-term (current) use of medications, Encounter for therapeutic drug monitoring, Therapeutic drug monitoring * ERYTHROCYTE SEDIMENTATION RATE(Performed 05/11/2020) Performed for Psoriatic arthritis ([facility]), Encounter for long-term (current) use of medications, Encounter for therapeutic drug monitoring, Therapeutic drug monitoring * C-REACTIVE PROTEIN(Performed 05/11/2020) Performed for Psoriatic arthritis ([facility]), Encounter for long-term (current) use of medications, Encounter for therapeutic drug monitoring, Therapeutic drug monitoring * COMPREHENSIVE METABOLIC PANEL(Performed 05/11/2020) Performed for Psoriatic arthritis ([facility]), Encounter for long-term (current) use of medications, Encounter for therapeutic drug monitoring, Therapeutic drug monitoring * CBC W AUTO DIFFERENTIAL(Performed 05/11/2020) Performed for Psoriatic arthritis ([facility]), Encounter for long-term (current) use of medications, Encounter for therapeutic drug monitoring, Therapeutic drug monitoring * CULTURE URINE(Performed 05/11/2020) * CULTURE URINE REFLEXED(Performed 05/11/2020) * QUANTIFERON-TB GOLD PLUS 1-TUBE(Performed 12/21/2019) * C-REACTIVE PROTEIN(Performed 12/21/2019) * ERYTHROCYTE SEDIMENTATION RATE(Performed 12/21/2019) * CBC W AUTO DIFFERENTIAL(Performed 12/21/2019) * COMPREHENSIVE METABOLIC PANEL(Performed 12/21/2019) * URINALYSIS W/MICROSCOPIC REFLEX TO CULTURE(Performed 12/21/2019) * CULTURE URINE(Performed 12/21/2019) * CULTURE URINE REFLEXED(Performed 12/21/2019) * QUANTIFERON-TB GOLD PLUS 1-TUBE(Performed 08/06/2019) * C-REACTIVE PROTEIN(Performed 08/06/2019) * ERYTHROCYTE SEDIMENTATION RATE(Performed 08/06/2019) * CBC W AUTO DIFFERENTIAL(Performed 08/06/2019) * COMPREHENSIVE METABOLIC PANEL(Performed 08/06/2019) * URINALYSIS W/MICROSCOPIC REFLEX TO CULTURE(Performed 08/06/2019) * CULTURE URINE(Performed 08/06/2019) * CULTURE URINE REFLEXED(Performed 08/06/2019) * URINALYSIS W/MICROSCOPIC REFLEX TO CULTURE(Performed 02/28/2019) Performed for Psoriatic arthritis (HCC), Therapeutic drug monitoring, High risk medications (not anticoagulants) long-term use * ERYTHROCYTE SEDIMENTATION RATE(Performed 02/28/2019) Performed for Psoriatic arthritis (HCC), Therapeutic drug monitoring, High risk medications (not anticoagulants) long-term use * C-REACTIVE PROTEIN(Performed 02/28/2019) Performed for Psoriatic arthritis (HCC), Therapeutic drug monitoring, High risk medications (not anticoagulants) long-term use * COMPREHENSIVE METABOLIC PANEL(Performed 02/28/2019) Performed for Psoriatic arthritis (HCC), Therapeutic drug monitoring, High risk medications (not anticoagulants) long-term use * CBC W AUTO DIFFERENTIAL(Performed 02/28/2019) Performed for Psoriatic arthritis (HCC), Therapeutic drug monitoring, High risk medications (not anticoagulants) long-term use * CULTURE URINE REFLEXED I(Performed 02/28/2019) * URINALYSIS W/MICROSCOPIC REFLEX TO CULTURE(Performed 02/03/2019) Performed for Psoriatic arthritis (HCC), Psoriasis, Therapeutic drug monitoring, Encounter for long-term (current) use of high-risk medication * ERYTHROCYTE SEDIMENTATION RATE(Performed 02/03/2019) Performed for Psoriatic arthritis (HCC), Psoriasis, Therapeutic drug monitoring, Encounter for long-term (current) use of high-risk medication * C-REACTIVE PROTEIN(Performed 02/03/2019) Performed for Psoriatic arthritis (HCC), Psoriasis, Therapeutic drug monitoring, Encounter for long-term (current) use of high-risk medication * COMPREHENSIVE METABOLIC PANEL(Performed 02/03/2019) Performed for Psoriatic arthritis (HCC), Psoriasis, Therapeutic drug monitoring, Encounter for long-term (current) use of high-risk medication * CBC W AUTO DIFFERENTIAL(Performed 02/03/2019) Performed for Psoriatic arthritis (HCC), Psoriasis, Therapeutic drug monitoring, Encounter for long-term (current) use of high-risk medication * CULTURE URINE(Performed 02/03/2019) * CULTURE URINE REFLEXED(Performed 02/03/2019) * SHARON BLOOD TITER(Performed 10/27/2018) * HISTONE ANTIBODY(Performed 10/27/2018) Performed for Psoriatic arthritis (HCC), Psoriasis, Therapeutic drug monitoring, Encounter for long-term (current) use of high-risk medication, Malar rash * LINDSAY (SM) ANTIBODY RUTH(Performed 10/27/2018) Performed for Psoriatic arthritis ([facility]), Psoriasis, Therapeutic drug monitoring, Encounter for long-term (current) use of high-risk medication, Malar rash * CHROMATIN ANTIBODY(Performed 10/27/2018) Performed for Psoriatic arthritis ([facility]), Psoriasis, Therapeutic drug monitoring, Encounter for long-term (current) use of high-risk medication, Malar rash * DNA ANTIBODY DOUBLE STRANDED(Performed 10/27/2018) Performed for Psoriatic arthritis (HCC), Psoriasis, Therapeutic drug monitoring, Encounter for long-term (current) use of high-risk medication, Malar rash * PROFESSIONAL SPORTS SCOUT ANTIBODY(Performed 10/27/2018) Performed for Psoriatic arthritis ([facility]), Psoriasis, Therapeutic drug monitoring, Encounter for long-term (current) use of high-risk medication, Malar rash * SS-A/SS-B (SJOGREN'S) ANTIBODY PANEL(Performed 10/27/2018) Performed for Psoriatic arthritis ([facility]), Psoriasis, Therapeutic drug monitoring, Encounter for long-term (current) use of high-risk medication, Malar rash * SHARON BLOOD SCREEN W/REFLEX TITER(Performed 10/27/2018) Performed for Psoriatic arthritis ([facility]), Psoriasis, Therapeutic drug monitoring, Encounter for long-term (current) use of high-risk medication, Malar rash * URINALYSIS W/MICROSCOPIC REFLEX TO CULTURE(Performed 10/16/2018) Performed for Psoriatic arthritis (HCC), Psoriasis, Therapeutic drug monitoring, Encounter for long-term (current) use of high-risk medication * ERYTHROCYTE SEDIMENTATION RATE(Performed 10/16/2018) Performed for Psoriatic arthritis (HCC), Psoriasis, Therapeutic drug monitoring, Encounter for long-term (current) use of high-risk medication * C-REACTIVE PROTEIN(Performed 10/16/2018) Performed for Psoriatic arthritis (HCC), Psoriasis, Therapeutic drug monitoring, Encounter for long-term (current) use of high-risk medication * COMPREHENSIVE METABOLIC PANEL(Performed 10/16/2018) Performed for Psoriatic arthritis (HCC), Psoriasis, Therapeutic drug monitoring, Encounter for long-term (current) use of high-risk medication * CBC W AUTO DIFFERENTIAL(Performed 10/16/2018) Performed for Psoriatic arthritis (HCC), Psoriasis, Therapeutic drug monitoring, Encounter for long-term (current) use of high-risk medication * CULTURE URINE(Performed 10/16/2018) * CULTURE URINE REFLEXED(Performed 10/16/2018) * URINALYSIS MICROSCOPIC ONLY REFLEXED(Performed 08/14/2018) Performed for Psoriatic arthritis (HCC), Therapeutic drug monitoring, High risk medications (not anticoagulants) long-term use * URINALYSIS W/MICROSCOPIC REFLEX TO CULTURE(Performed 08/14/2018) Performed for Psoriatic arthritis (HCC), Therapeutic drug monitoring, High risk medications (not anticoagulants) long-term use * ERYTHROCYTE SEDIMENTATION RATE(Performed 08/14/2018) Performed for Psoriatic arthritis (HCC), Therapeutic drug monitoring, High risk medications (not anticoagulants) long-term use * C-REACTIVE PROTEIN(Performed 08/14/2018) Performed for Psoriatic arthritis (HCC), Therapeutic drug monitoring, High risk medications (not anticoagulants) long-term use * COMPREHENSIVE METABOLIC PANEL(Performed 08/14/2018) Performed for Psoriatic arthritis (HCC), Therapeutic drug monitoring, High risk medications (not anticoagulants) long-term use * CBC W AUTO DIFFERENTIAL(Performed 08/14/2018) Performed for Psoriatic arthritis (HCC), Therapeutic drug monitoring, High risk medications (not anticoagulants) long-term use * STREP A SCREEN - POINT OF CARE (AMB) STL(Performed 08/08/2018) Performed for Right ear pain * C-REACTIVE PROTEIN(Performed 05/11/2018) * ERYTHROCYTE SEDIMENTATION RATE(Performed 05/11/2018) * URINALYSIS MICROSCOPIC ONLY REFLEXED(Performed 05/11/2018) * URINALYSIS W/MICROSCOPIC NO CULTURE(Performed 05/11/2018) * COMPREHENSIVE METABOLIC PANEL(Performed 05/11/2018) * CBC W AUTO DIFFERENTIAL(Performed 05/11/2018) * URINALYSIS MICROSCOPIC ONLY REFLEXED(Performed 03/06/2018) * URINALYSIS W/MICROSCOPIC NO CULTURE(Performed 03/06/2018) * ERYTHROCYTE SEDIMENTATION RATE(Performed 03/06/2018) Performed for Psoriasis, Therapeutic drug monitoring, Encounter for long-term (current) use of medications * COMPREHENSIVE METABOLIC PANEL(Performed 03/06/2018) Performed for Psoriasis, Therapeutic drug monitoring, Encounter for long-term (current) use of medications * C-REACTIVE PROTEIN(Performed 03/06/2018) Performed for Psoriasis, Therapeutic drug monitoring, Encounter for long-term (current) use of medications * CBC W AUTO DIFFERENTIAL(Performed 03/06/2018) Performed for Psoriasis, Therapeutic drug monitoring, Encounter for long-term (current) use of medications * URINALYSIS MICROSCOPIC ONLY REFLEXED(Performed 01/16/2018) * URINALYSIS W/MICROSCOPIC NO CULTURE(Performed 01/16/2018) * ERYTHROCYTE SEDIMENTATION RATE(Performed 01/16/2018) Performed for Psoriasis, Therapeutic drug monitoring, Encounter for long-term (current) use of medications * COMPREHENSIVE METABOLIC PANEL(Performed 01/16/2018) Performed for Psoriasis, Therapeutic drug monitoring, Encounter for long-term (current) use of medications * C-REACTIVE PROTEIN(Performed 01/16/2018) Performed for Psoriasis, Therapeutic drug monitoring, Encounter for long-term (current) use of medications * CBC W AUTO DIFFERENTIAL(Performed 01/16/2018) Performed for Psoriasis, Therapeutic drug monitoring, Encounter for long-term (current) use of medications * IMAGING/RADIOLOGY/XRAY RESULTS ORDER(Performed 01/06/2018) * URINALYSIS W/MICROSCOPIC NO CULTURE(Performed 12/12/2017) * ERYTHROCYTE SEDIMENTATION RATE(Performed 12/12/2017) * C-REACTIVE PROTEIN(Performed 12/12/2017) * COMPREHENSIVE METABOLIC PANEL(Performed 12/12/2017) * CBC W AUTO DIFFERENTIAL(Performed 12/12/2017) * URINALYSIS MICROSCOPIC ONLY REFLEXED(Performed 12/12/2017) * CBC W AUTO DIFFERENTIAL(Performed 12/12/2017) * COMPREHENSIVE METABOLIC PANEL(Performed 12/12/2017) * URINALYSIS MICROSCOPIC ONLY REFLEXED(Performed 12/12/2017) * URINALYSIS W/MICROSCOPIC NO CULTURE(Performed 12/12/2017) * ERYTHROCYTE SEDIMENTATION RATE(Performed 12/12/2017) * C-REACTIVE PROTEIN(Performed 12/12/2017) * URINALYSIS W/MICROSCOPIC NO CULTURE(Performed 10/10/2017) * ERYTHROCYTE SEDIMENTATION RATE(Performed 10/10/2017) * C-REACTIVE PROTEIN(Performed 10/10/2017) * COMPREHENSIVE METABOLIC PANEL(Performed 10/10/2017) * CBC W AUTO DIFFERENTIAL(Performed 10/10/2017) * URINALYSIS MICROSCOPIC ONLY REFLEXED(Performed 10/10/2017) * QUANTIFERON TB-GOLD(Performed 10/10/2017) * QUANTIFERON TB-GOLD(Performed 10/10/2017) * URINALYSIS W/MICROSCOPIC NO CULTURE(Performed 08/08/2017) * ERYTHROCYTE SEDIMENTATION RATE(Performed 08/08/2017) * C-REACTIVE PROTEIN(Performed 08/08/2017) * COMPREHENSIVE METABOLIC PANEL(Performed 08/08/2017) * CBC W AUTO DIFFERENTIAL(Performed 08/08/2017) * URINALYSIS MICROSCOPIC ONLY REFLEXED(Performed 08/08/2017) * URINALYSIS MICROSCOPIC ONLY REFLEXED(Performed 07/11/2017) * URINALYSIS W/MICROSCOPIC NO CULTURE(Performed 07/11/2017) * ERYTHROCYTE SEDIMENTATION RATE(Performed 07/11/2017) * C-REACTIVE PROTEIN(Performed 07/11/2017) * COMPREHENSIVE METABOLIC PANEL(Performed 07/11/2017) * CBC W AUTO DIFFERENTIAL(Performed 07/11/2017) * URINALYSIS MICROSCOPIC ONLY REFLEXED(Performed 06/13/2017) * CBC W AUTO DIFFERENTIAL(Performed 06/13/2017) * URINALYSIS W/MICROSCOPIC NO CULTURE(Performed 06/13/2017) * ERYTHROCYTE SEDIMENTATION RATE(Performed 06/13/2017) * C-REACTIVE PROTEIN(Performed 06/13/2017) * COMPREHENSIVE METABOLIC PANEL(Performed 06/13/2017) * VITAMIN D 25-HYDROXY(Performed 05/23/2017) * URINALYSIS MICROSCOPIC ONLY REFLEXED(Performed 05/23/2017) * URINALYSIS W/MICROSCOPIC NO CULTURE(Performed 05/23/2017) * ERYTHROCYTE SEDIMENTATION RATE(Performed 05/23/2017) * C-REACTIVE PROTEIN(Performed 05/23/2017) * COMPREHENSIVE METABOLIC PANEL(Performed 05/23/2017) * CBC W AUTO DIFFERENTIAL(Performed 05/23/2017) * URINALYSIS MICROSCOPIC ONLY REFLEXED(Performed 04/11/2017) * URINALYSIS W/MICROSCOPIC REFLEX TO CULTURE(Performed 04/11/2017) * ERYTHROCYTE SEDIMENTATION RATE(Performed 04/11/2017) * C-REACTIVE PROTEIN(Performed 04/11/2017) * COMPREHENSIVE METABOLIC PANEL(Performed 04/11/2017) * CBC W AUTO DIFFERENTIAL(Performed 04/11/2017) * URINALYSIS MICROSCOPIC ONLY REFLEXED(Performed 03/28/2017) * C-REACTIVE PROTEIN(Performed 03/28/2017) * COMPREHENSIVE METABOLIC PANEL(Performed 03/28/2017) * CBC W AUTO DIFFERENTIAL(Performed 03/28/2017) * URINALYSIS W/MICROSCOPIC REFLEX TO CULTURE(Performed 03/28/2017) * ERYTHROCYTE SEDIMENTATION RATE(Performed 03/28/2017) * URINALYSIS W/MICROSCOPIC REFLEX TO CULTURE(Performed 03/13/2017) * ERYTHROCYTE SEDIMENTATION RATE(Performed 03/13/2017) * C-REACTIVE PROTEIN(Performed 03/13/2017) * COMPREHENSIVE METABOLIC PANEL(Performed 03/13/2017) * URINALYSIS MICROSCOPIC ONLY REFLEXED(Performed 03/13/2017) * CBC W AUTO DIFFERENTIAL(Performed 03/13/2017) * ERYTHROCYTE SEDIMENTATION RATE(Performed 02/28/2017) * C-REACTIVE PROTEIN(Performed 02/28/2017) * COMPREHENSIVE METABOLIC PANEL(Performed 02/28/2017) * CBC W AUTO DIFFERENTIAL(Performed 02/28/2017) * URINALYSIS W/MICROSCOPIC REFLEX TO CULTURE(Performed 02/28/2017) * URINALYSIS MICROSCOPIC ONLY REFLEXED(Performed 02/28/2017) * STREP A SCREEN - POINT OF CARE (AMB) STL(Performed 02/28/2017) Performed for Acute pharyngitis, unspecified etiology * URINALYSIS MICROSCOPIC ONLY REFLEXED(Performed 02/14/2017) * URINALYSIS W/MICROSCOPIC REFLEX TO CULTURE(Performed 02/14/2017) * ERYTHROCYTE SEDIMENTATION RATE(Performed 02/14/2017) * C-REACTIVE PROTEIN(Performed 02/14/2017) * COMPREHENSIVE METABOLIC PANEL(Performed 02/14/2017) * CBC W AUTO DIFFERENTIAL(Performed 02/14/2017) * C-REACTIVE PROTEIN(Performed 01/31/2017) * COMPREHENSIVE METABOLIC PANEL(Performed 01/31/2017) * CBC W AUTO DIFFERENTIAL(Performed 01/31/2017) * URINALYSIS W/MICROSCOPIC REFLEX TO CULTURE(Performed 01/31/2017) * ERYTHROCYTE SEDIMENTATION RATE(Performed 01/31/2017) * URINALYSIS MICROSCOPIC ONLY REFLEXED(Performed 01/31/2017) * URINALYSIS MICROSCOPIC ONLY REFLEXED(Performed 01/16/2017) * URINALYSIS W/MICROSCOPIC REFLEX TO CULTURE(Performed 01/16/2017) * ERYTHROCYTE SEDIMENTATION RATE(Performed 01/16/2017) * C-REACTIVE PROTEIN(Performed 01/16/2017) * COMPREHENSIVE METABOLIC PANEL(Performed 01/16/2017) * CBC W AUTO DIFFERENTIAL(Performed 01/16/2017) * URINALYSIS MICROSCOPIC ONLY REFLEXED(Performed 01/02/2017) * CBC W AUTO DIFFERENTIAL(Performed 01/02/2017) * URINALYSIS W/MICROSCOPIC REFLEX TO CULTURE(Performed 01/02/2017) * ERYTHROCYTE SEDIMENTATION RATE(Performed 01/02/2017) * C-REACTIVE PROTEIN(Performed 01/02/2017) * COMPREHENSIVE METABOLIC PANEL(Performed 01/02/2017) * URINALYSIS W/MICROSCOPIC REFLEX TO CULTURE(Performed 12/20/2016) * ERYTHROCYTE SEDIMENTATION RATE(Performed 12/20/2016) * C-REACTIVE PROTEIN(Performed 12/20/2016) * COMPREHENSIVE METABOLIC PANEL(Performed 12/20/2016) * CBC W AUTO DIFFERENTIAL(Performed 12/20/2016) * URINALYSIS MICROSCOPIC ONLY REFLEXED(Performed 12/20/2016) * COMPREHENSIVE METABOLIC PANEL(Performed 12/01/2016) * CBC W AUTO DIFFERENTIAL(Performed 12/01/2016) * URINALYSIS W/MICROSCOPIC REFLEX TO CULTURE(Performed 12/01/2016) * ERYTHROCYTE SEDIMENTATION RATE(Performed 12/01/2016) * C-REACTIVE PROTEIN(Performed 12/01/2016) * URINALYSIS MICROSCOPIC ONLY REFLEXED(Performed 12/01/2016) * URINALYSIS MICROSCOPIC ONLY REFLEXED(Performed 11/17/2016) * CBC W AUTO DIFFERENTIAL(Performed 11/17/2016) * URINALYSIS W/MICROSCOPIC REFLEX TO CULTURE(Performed 11/17/2016) * ERYTHROCYTE SEDIMENTATION RATE(Performed 11/17/2016) * C-REACTIVE PROTEIN(Performed 11/17/2016) * COMPREHENSIVE METABOLIC PANEL(Performed 11/17/2016) * QUANTIFERON TB-GOLD(Performed 10/27/2016) * VITAMIN D 25-HYDROXY D2+D3(Performed 10/27/2016) * ERYTHROCYTE SEDIMENTATION RATE(Performed 10/27/2016) * C-REACTIVE PROTEIN(Performed 10/27/2016) * COMPREHENSIVE METABOLIC PANEL(Performed 10/27/2016) * CBC W AUTO DIFFERENTIAL(Performed 10/27/2016) * URINALYSIS W/MICROSCOPIC REFLEX TO CULTURE(Performed 10/27/2016) * HEPATITIS C ANTIBODY(Performed 10/27/2016) * HEPATITIS B SURFACE ANTIBODY(Performed 10/27/2016) * HEPATITIS B SURFACE ANTIGEN W RFLX CONFIRMATION(Performed 10/27/2016) * HEPATITIS B CORE ANTIBODY TOTAL(Performed 10/27/2016) * QUANTIFERON TB-GOLD(Performed 10/27/2016) * SHARON BLOOD TITER(Performed 10/27/2016) * URINALYSIS MICROSCOPIC ONLY REFLEXED(Performed 10/27/2016) * CYCLIC CITRULLINATED PEPTIDE(CCP) AB IGG(Performed 10/27/2016) * RHEUMATOID FACTOR BLOOD QUANTITATIVE(Performed 10/27/2016) * SS-A/SS-B (SJOGREN'S) ANTIBODY PANEL(Performed 10/27/2016) * SHARON BLOOD SCREEN W/REFLEX TITER(Performed 10/27/2016) * HLA TYPING B27(Performed 10/27/2016) Results * HEPATITIS C AB W/RFLX TO HCV RNA QN PCR (10/30/2023 8:28 AM NURSING SERVICE DIRECTOR) Only the most recent of2 resultswithin the time period is included. Hepatitis C Antibody NON-REACTI VE NON-REACT [facility] Comment: HCV antibody was non-reactive. There is no laboratory evidence of HCV infection. In most cases, no further action is required. However, if recent HCV exposure is suspected, a test for HCV RNA (test code 49816) is suggested. For additional information please refer to http://education.Sticher.Aircare/faq/OLO31x7 (This link is being provided for informational/ educational purposes only.) Test Performed at: [facility] [employer] [address] [address] HALEIGH OLIVAREZ MD 10/30/2023 8:28 AM NURSING SERVICE DIRECTOR 10/30/2023 8:30 AM NURSING SERVICE DIRECTOR Beth Varghese MD LAB - CHEMISTR Y ORDERABLES Performing Organization Address [facility] de Phone Number [phone] [place] [address] * TB TEST T SPOT (10/30/2023 8:26 AM NURSING SERVICE DIRECTOR) T-Spot TB Result Negative SeeBelow [facility] Comment: Normal Value: Negative A negative test result does not exclude the possibility of exposure to or infection with Mycobacterium tuberculosis (M. tuberculosis). Patients with recent exposure to TB infected individuals exhibiting a negative T-SPOT.TB result should be considered for retesting within 6 weeks or if other relevant clinical symptoms indicate. Results from T-SPOT.TB testing must be used in conjunction with each individual's epidemiological history, current medical status, and results of other diagnostic evaluations. The T-SPOT.TB test is qualitative and results are reported as positive, borderline or negative, given that the test controls perform as expected. In line with the Centers for Disease Control and Prevention's 2010 recommendation to report quantitative measurements alongside the qualitative result, the laboratory provides spot counts for informational purposes only. The T-SPOT.TB test should not be interpreted as a quantitative test. Panel A Spot Count Corrected for Negative Control 0 [facility] Panel B Spot Count Corrected for Negative Control 0 [facility] Negative Control Passed [facility] Positive Control Passed [facility] Comment: Test Performed at: [facility] [place] [address] MARTI GAO,PHD 10/30/2023 8:26 AM NURSING SERVICE DIRECTOR 10/30/2023 8:27 AM NURSING SERVICE DIRECTOR Beth Varghese MD LAB - CHEMISTR Y ORDERABLES Performing Organization Address [facility] Co de Phone Number [facility] [address] [place] [address] * CULTURE URINE REFLEXED III (09/09/2023 8:06 AM NURSING SERVICE DIRECTOR) Pathologist [facility] Reflexive Urine Culture See Below [facility] Comment: NO CULTURE INDICATED Test Performed at: [email or web address] [address] HALEIGH OLIVAREZ MD 09/09/2023 8:06 AM NURSING SERVICE DIRECTOR 09/09/2023 8:06 AM NURSING SERVICE DIRECTOR Beth Varghese MD LAB - MICROBIO LOGY ORDERABLES Performing Organization Address [facility] Co de Phone Number [address] [address] * URINALYSIS W/MICROSCOPIC REFLEX TO CULTURE (09/09/2023 8:06 AM NURSING SERVICE DIRECTOR) Only the most recent of28 resultswithin the time period is included. Color UA YELLOW YELLOW [facility] Appearance CLEAR CLEAR [facility] Specific [place] UA 1.018 1.001 - 1.035 [facility] pH UA 5.5 5.0 - 8.0 [facility] Glucose UA NEGATIVE NEGATIVE [facility] Bilirubin UA NEGATIVE NEGATIVE [facility] Ketone UA NEGATIVE NEGATIVE [facility] Blood UA NEGATIVE NEGATIVE [facility] Protein UA NEGATIVE NEGATIVE [facility] Nitrite NEGATIVE NEGATIVE [facility] Leukocyte Esterase NEGATIVE NEGATIVE [facility] WBC UA NONE SEEN < OR = 5 /HPF [facility] RBC UA NONE SEEN < OR = 2 /HPF [facility] Epithelial Cell UA 0-5 < OR = 5 /HPF [facility] Bacteria UA NONE SEEN NONE SEEN /HPF [facility] Hyaline Casts NONE SEEN NONE SEEN /LPF [facility] Note See Below [facility] Comment: This urine was analyzed for the presence of WBC, RBC, bacteria, casts, and other formed elements. Only those elements seen were reported. Test Performed at: [id number] [address] HALEIGH OLIVAREZ MD Urine URINE SPECIMEN OBTAINED BY CLEAN CATCH PROCEDURE / Unknown 09/09/2023 8:06 AM NURSING SERVICE DIRECTOR 09/09/2023 8:06 AM NURSING SERVICE DIRECTOR Beth Varghese MD LAB - URINALYS IS ORDERABLES Performing Organization Address [facility] Co de Phone Number [address] [address] * C-REACTIVE PROTEIN (09/09/2023 8:06 AM NURSING SERVICE DIRECTOR) Only the most recent of38 resultswithin the time period is included. C-Reactive Protein 5.8 <8.0 mg/L [facility] Comment: REPORT COMMENT: FASTING:YES Test Performed at: [facility] [address] [address] [place] [address] HALEIGH OLIVAREZ MD Blood BLOOD SPECIMEN / Unknown 09/09/2023 8:06 AM NURSING SERVICE DIRECTOR 09/09/2023 8:06 AM NURSING SERVICE DIRECTOR Beth Varghese MD LAB - CHEMISTR Y ORDERABLES Performing Organization Address [facility] de Phone Number [facility] [address] [phone] * (ABNORMAL) ERYTHROCYTE SEDIMENTATION RATE (09/09/2023 8:06 AM NURSING SERVICE DIRECTOR) Only the most recent of38 resultswithin the time period is included. [facility] Erythrocyte Sedimentation Rate Westergren 34(H) < OR = 30 mm/h [facility] Comment: Test Performed at: [facility] [address] [place] [address] HALEIGH OLIVAREZ MD Blood BLOOD SPECIMEN / Unknown 09/09/2023 8:06 AM NURSING SERVICE DIRECTOR 09/09/2023 8:06 AM NURSING SERVICE DIRECTOR Beth Varghese MD LAB - HEMATOLO GY ORDERABLES Performing Organization Address [facility] de Phone Number [facility] [address] [phone] * CBC WITH DIFFERENTIAL (09/09/2023 8:06 AM NURSING SERVICE DIRECTOR) Only the most recent of38 resultswithin the time period is included. [facility] White Blood Cell Count 7.2 3.8 - 10.8 Thousand/u L [facility] RBC 4.69 3.80 - 5.10 Million/uL [facility] Hemoglobin 14.3 11.7 - 15.5 g/dL [facility] Hematocrit 43.8 35.0 - 45.0 % [facility] MCV 93.4 80.0 - 100.0 fL [facility] MCH 30.5 27.0 - 33.0 pg [facility] MCHC 32.6 32.0 - 36.0 g/dL [facility] RDW 13.2 11.0 - 15.0 % [facility] Platelet Count 260 140 - 400 Thousand/u L [facility] MPV 10.7 7.5 - 12.5 fL [facility] Neutrophil Absolute 3060 1500 - 7800 cells/uL [facility] Absolute Bands [facility] Metamyelocytes Absolute [facility] Myelocytes Absolute [facility] Absolute Prolymphocytes [facility] Lymphocytes Absolute 3110 850 - 3900 cells/uL [facility] Absolute Monocytes 720 200 - 950 cells/uL [facility] Eosinophils Absolute 238 15 - 500 cells/uL [facility] Basophils Absolute 72 0 - 200 cells/uL [facility] Absolute Blasts [facility] nRBC Absolute [facility] Granulocytes % 42.5 % [facility] Band Neutrophil [facility] Metamyelocytes [facility] Myelocytes [facility] Promyelocytes [facility] Lymphocytes % 43.2 % [facility] Lymphocyte Reactive [facility] Monocytes % 10.0 % [facility] Eosinophils % 3.3 % [facility] Basophils % 1.0 % [facility] Comment: Test Performed at: [facility] [address] [place] [address] HALEIGH OLIVAREZ MD Blasts [facility] nRBC [facility] Comments [facility] Comment: Test Performed at: [facility] [address] [facility] [place] [address] HALEIGH OLIVAREZ MD Blood BLOOD SPECIMEN / Unknown 09/09/2023 8:06 AM NURSING SERVICE DIRECTOR 09/09/2023 8:06 AM NURSING SERVICE DIRECTOR Beth Varghese MD LAB - HEMATOLO GY ORDERABLES [facility] [address] [place] [address] * (ABNORMAL) COMPREHENSIVE METABOLIC PANEL (09/09/2023 8:06 AM NURSING SERVICE DIRECTOR) Only the most recent of38 resultswithin the time period is included. Glucose 110(H) 65 - 99 mg/dL [facility] [...] 29 U/L [facility] Comment: Test Performed at: [facility] [place] [address] [facility] [place] [address] HALEIGH OLIVAREZ MD Blood BLOOD SPECIMEN / Unknown 09/09/2023 8:06 AM NURSING SERVICE DIRECTOR 09/09/2023 8:06 AM NURSING SERVICE DIRECTOR Beth Varghese MD LAB - CHEMISTR Y ORDERABLES Performing Organization Address [facility] Co de Phone Number [address] [address] * CULTURE URINE REFLEXED II (05/08/2023 9:15 AM CDT) Only the most recent of6 resultswithin the time period is included. Reflexive Urine Culture See Below [facility] Comment: CULTURE INDICATED - RESULTS TO FOLLOW Test Performed at: [facility] [address] HALEIGH OLIVAREZ MD 05/08/2023 9:15 AM CDT 05/08/2023 9:15 AM CDT Beth Varghese MD LAB - MICROBIO LOGY ORDERABLES Performing Organization Address [facility] Co de Phone Number [address] [address] * (ABNORMAL) CULTURE URINE (05/08/2023 9:15 AM CDT) Only the most recent of11 resultswithin the time period is included. Culture (A) [facility] Comment: CULTURE, URINE, ROUTINE Micro Number: [id number] Test Status: Final Specimen Source: Urine Specimen Quality: Adequate Result: Greater than 100,000 CFU/mL of Escherichia coli E.coli INT ROBBIE AMOX/CLAVULANATE I 16 AMP/SULBACTAM I 16 CEFAZOLIN R 16 1 CEFEPIME S <=0.12 CEFTAZIDIME S <=1 CEFTRIAXONE S <=0.25 CIPROFLOXACIN R >=4 GENTAMICIN S <=1 IMIPENEM S <=0.25 LEVOFLOXACIN R >=8 MEROPENEM S <=0.25 NITROFURANTOIN S <=16 PIP/TAZOBACTAM S <=4 TRIMETHOPRIM/SULFA S <=20 S=Susceptible I=Intermediate R=Resistant * = Not Tested NR = Not Reported NN = See Therapy Comments THERAPY COMMENTS Note 1: For uncomplicated UTI caused by E. coli, K. pneumoniae or P. mirabilis: Cefazolin is susceptible if ROBBIE <32 mcg/mL and predicts susceptible to the oral agents cefaclor, cefdinir, cefpodoxime, cefprozil, cefuroxime, cephalexin and loracarbef. REPORT COMMENT: FASTING:YES Test Performed at: [address] [address] HALEIGH OLIVAREZ MD 05/08/2023 9:15 AM CDT 05/08/2023 9:15 AM CDT Beth Varghese MD LAB - MICROBIO LOGY ORDERABLES [address] [address] * IR BIOPSY TRANSCATHETER (11/27/2022 3:42 PM CDT) Anatomical Region Laterality Modality Abdomen, Lung, Chest X-Ray Angio graphy 11/27/2022 3:47 PM CDT Impressions 12/02/2022 12:35 PM CDT Impression: 1.Hepatic venogram and pressure measurements. The hepatic venous pressure gradient is 7 mmHg. 2.Transcatheter biopsy of the liver under fluoroscopic guidance. The pathology report is pending at the time of this dictation. I, Dr. Garcias, was present and performed/supervised the entire procedure. Moderate sedation on this patient was ordered by me, administered intravenously in my presence, and monitored by the procedure nurse as an independent trained observer who was present throughout the procedure. The following parameters were monitored: oxygen saturation, heart rate, blood pressure, and response to care. Intra-service sedation start time was 1505 and end time was 1537 during which I was present. Total physician intra-service sedation time was 32 minutes. For details on pre moderate sedation and post moderate sedation patient evaluation, please review the evaluation forms in [facility]. For details on monitored clinical parameters during the intra-service sedation time, please review the procedure nurse documentation in [facility]. > Dictated by Dr. Bereket Queen, Interventional Child Life Assistant. > Dictated by Bereket Queen (Child Life Assistant) 11/27/2022 3:52 PM IAmdaeo DO have personally reviewed and interpreted this examination/study. > Interpreting Provider: Amadeo Garcias DO on 12/02/2022 12:35 PM Narrative 12/02/2022 12:35 PM CDT History: 57-year-old female with elevated liver function tests and fatty liver with suspicion for fibrosis. Operators: 1.Attending - Amadeo Garcias 2.Resident - Bereket Queen Anesthesia: 1.Local anesthesia - 10 mL of 1% lidocaine 2.Intravenous conscious sedation - Versed 1.5 mg and Fentanyl 75 mcg Procedure: 1.Ultrasound-guided access of the right internal jugular vein. 2.Selective catheterization of the right hepatic vein and venogram. 3.Pressure measurements in the right atrium, inferior vena cava, and hepatic vein. 4.Transcatheter biopsy of the liver under fluoroscopic guidance. Fluoroscopic time: 8.5 minutes Contrast: 15 mL of Isovue-300 Procedure in detail: The procedure, risks and possible complications were explained to the patient in detail, and informed consent was obtained. The patient was placed supine on the angiographic table. Advertising Sales Representative radiograph of the abdomen was unremarkable. A pre-procedure time out was performed. The right neck was prepped and draped in the usual sterile manner. Limited ultrasound of right internal jugular vein demonstrated patency and compressibility. A willard scale image was documented. After instillation of 1% Lidocaine, a small skin incision was made in the right lower neck. Under real time ultrasound guidance, the right internal jugular vein was accessed using a micropuncture needle. The needle entry was documented. After series of exchanges, a 10 Guamanian vascular sheath was placed. Through the vascular sheath, the following pressures were measured: Right atrium: 12 mmHg Using a 5 Guamanian MPA catheter, the right hepatic vein was catheterized, and a venogram was obtained. The venogram showed normal caliber vein with free flow of contrast towards the right heart. An occlusion balloon catheter was then advanced into the right hepatic vein. Pressures were measured before and after inflating the balloon: Free hepatic: 15 mmHg Wedged hepatic (portal): 22 mmHg The following gradients were then calculated: Hepatic venous pressure gradient (wedged hepatic - free hepatic): 7 mmHg Portosystemic pressure gradient (wedged hepatic - right atrial): 10 mmHg A stiffer 0.035 inch guidewire was advanced into the right hepatic vein. Using a Metricly transjugular biopsy set, three core samples were obtained. Samples were placed in formalin and sent to the pathology service. Post-biopsy hepatic venogram was unremarkable. The vascular sheath was removed, and hemostasis was achieved with manual compression. Sterile dressing was applied. The patient tolerated the procedure well and was transferred to the holding area in stable condition. There were no immediate complications associated with the procedure. Procedure Note Amadeo Garcias MD - 12/02/2022 History: 57-year-old female with elevated liver function tests and fatty liver with suspicion for fibrosis. Operators: 1.Attending - Amadeo Garcias 2.Resident - Bereket Queen Anesthesia: 1.Local anesthesia - 10 mL of 1% lidocaine 2.Intravenous conscious sedation - Versed 1.5 mg and Fentanyl 75 mcg Procedure: 1.Ultrasound-guided access of the right internal jugular vein. 2.Selective catheterization of the right hepatic vein and venogram. 3.Pressure measurements in the right atrium, inferior vena cava, and hepatic vein. 4.Transcatheter biopsy of the liver under fluoroscopic guidance. Fluoroscopic time: 8.5 minutes Contrast: 15 mL of Isovue-300 Procedure in detail: The procedure, risks and possible complications were explained to the patient in detail, and informed consent was obtained. The patient was placed supine on the angiographic table. Advertising Sales Representative radiograph of the abdomen was unremarkable. A pre-procedure time out was performed. The right neck was prepped and draped in the usual sterile manner.Limited ultrasound of right internal jugular vein demonstrated patency and compressibility. A willard scale image was documented. After instillationof 1% Lidocaine, a small skin incision was made in the right lower neck.Under real time ultrasound guidance, the right internal jugular vein wasaccessed using a micropuncture needle. The needle entry was documented. Afterseries of exchanges, a 10 Guamanian vascular sheath was placed. Through the vascular sheath, the following pressures were measured: Right atrium: 12 mmHg Using a 5 Guamanian MPA catheter, the right hepatic vein was catheterized,and a venogram was obtained. The venogram showed normal caliber vein withfree flow of contrast towards the right heart. An occlusion balloon catheter was then advanced into the right hepatic vein. Pressures were measured before and after inflating the balloon: Free hepatic: 15 mmHg Wedged hepatic (portal): 22 mmHg The following gradients were then calculated: Hepatic venous pressure gradient (wedged hepatic - free hepatic): 7 mmHg Portosystemic pressure gradient (wedged hepatic - right atrial): 10 mmHg A stiffer 0.035 inch guidewire was advanced into the right hepatic vein. Using a Metricly transjugular biopsy set, three core samples were obtained. Samples were placed in formalin and sent to the pathology service. Post-biopsy hepatic venogram was unremarkable. The vascular sheath was removed, and hemostasis was achieved with manual compression. Sterile dressing was applied. The patient tolerated the procedure well and was transferred to the holding area in stablecondition. There were no immediate complications associated with the procedure. Impression: 1.Hepatic venogram and pressure measurements. The hepatic venouspressure gradient is 7 mmHg. 2.Transcatheter biopsy of the liver under fluoroscopic guidance. The pathology report is pending at the time of this dictation. Dr. Dieter Lake, was present and performed/supervised the entire procedure. Moderate sedation on this patient was ordered by me, administered intravenously in my presence, and monitored by the procedure nurse as an independent trained observer who was present throughout the procedure.The following parameters were monitored: oxygen saturation, heart rate,blood pressure, and response to care. Intra-service sedation start time [id number] and end time was [id number] during which I was present. Total physician intra-service sedation time was 32 minutes. For details on pre moderate sedation and post moderate sedation patient evaluation, please reviewthe evaluation forms in [facility]. For details on monitored clinical parameters during the intra-service sedation time, please review the procedurenurse documentation in [facility]. > Dictated by Dr. Bereket Queen, Interventional Child Life Assistant. > Dictated by Bereket Queen (Child Life Assistant) 11/27/2022 3:52 PM Amadeo Lake, DO have personally reviewed and interpreted this examination/study. > Interpreting Provider: Amadeo Garcias DO on 12/02/2022 12:35 PM Serafin Carrera MD IR ORDERABLES * PATHOLOGY TISSUE (11/27/2022 3:34 PM CDT) Case Report Surgical Pathology Report Case: [id number] Authorizing Provider: Serafin Carrera MD Collected: 11/27/2022 03:34 PM Ordering Location: [facility] Received: 11/28/2022 08:59 AM Pathologist: Solange Sharp MD Specimen: Liver Needle Biopsy, Transjugular Liver Biopsy 12/01/2022 2:50 PM CDT [facility] Final Diagnosis Liver, transjugular biopsy (A): - Steatohepatitis with mild steatosis, lobular activity, and ballooning - Mild perisinusoidal fibrosis 12/01/2022 2:50 PM CDT [facility] Microscopic Description and Comment The liver biopsy is several cores of parenchyma notable for mild macrovesicular steatosis (30%) in a zone 3/perivenular distribution. There are also occasional ballooned hepatocytes, mostly in zone 3. Lobular activity is mild overall (<2 foci/20x field), and there is mild lipofuscin and cytoplasmic clearing in patches of hepatocytes. Portal inflammation is minimal to absent, and there is no interface activity. The trichrome stain highlights delicate perisinusoidal fibrosis, focally and mild portal fibrosis, but no periportal fibrosis. The reticulin stain highlights foci of condensation. The PASD stain is negative for alpha-1 antitrypsin globules. The iron stain shows rare blush hepatocellular iron. The steatosis, lobular inflammation, and ballooning are diagnostic for steatohepatitis, and could be seen in nonalcoholic or alcohol-related liver disease. In a clinical setting of REYES, the NAFLD activity score is 3/8 (steatosis-1, ballooning-1, inflammation-1), and stage is 1a. 12/01/2022 2:50 PM CDT [facility] Clinical History The 57-year-old woman with elevated liver function tests and fatty liver with suspicion for fibrosis. US of abdomen 06/2022 at OSH showed diffuse hepatic steatosis. She is here for further evaluation with a liver biopsy. 12/01/2022 2:50 PM CDT [facility] Gross Description The requisition and specimen(s) are identified with the patient's name Vivian Matute. Received in formalin, specimen A , are 3 yellow-diamond tissue cores, 0.9 x 0.1 x 0.1 cm, 1.7 x 0.1 x 0.1 cm, and 1.6 x 0.1 x 0.1 cm, submitted in toto in cassette A1. DF 12/01/2022 2:50 PM CDT [facility] Disclaimer The performance characteristics of all immunohistochemical and indirect immunofluorescence stains (if any) cited in this report were determined by the Histopathology Laboratory of [facility]. Some of these tests were developed by our own laboratory and have not been cleared or approved by the US Food and Drug Administration. The FDA does not require this test to go through premarket FDA review. These tests are used for clinical purposes. They should not be regarded as investigational or for research. This laboratory is certified under the Clinical Laboratory Improvement Amendments (CLIA) as qualified to perform high complexity clinical laboratory testing. This case has been personally reviewed and interpreted by the attending (teaching) pathologist. 12/01/2022 2:50 PM CDT [facility] Collected By Fam Omalley RN 2022 2:50 PM T [facility] Embedded Images 12/01/2022 2:50 PM [facility] Pathology/Cytolo gy NEEDLE BIOPSY OF LIVER / Unknown Collection / Unknown 11/27/2022 3:34 PM CDT 11/28/2022 8:59 AM CDT Serafin Carrera MD LAB - PATHOLOGY/CYTO LOGY ORDERABLES [facility] [address] [phone] * PT-INR [facility] (11/27/2022 11:34 AM CDT) PT 12.4 12.1 - 14.8 Seconds 11/27/2022 12:03 PM CDT [facility] INR 0.9 See Comment 11/27/2022 12:03 PM [facility] Comment:The suggested therap eutic range for standard coumadin (warfarin) therapy is an INR of 2.0-3.0. For high-risk patients (Mechanical Mitral Valve Prosthesis, etc.), the suggested prophylactic therapeutic range is an INR of 2.5-3.5. Blood BLOOD SPECIMEN / Unknown Venipuncture / Unknown 11/27/2022 11:34 AM CDT 11/27/2022 11:41 AM CDT Serafin Carrera MD LAB - COAGULATION OR DERABLES Performing Organization Address City/State/[facility] Co de Phone Number [facility] [address] [place] [address], [facility] [phone] * (ABNORMAL) CBC W/O DIFFERENTIAL (11/27/2022 11:34 AM CDT) WBC 5.1 3.5 - 10.5 10 3/uL 11/27/2022 11:47 AM [facility] RBC 5.24(H) 3.80 - 5.20 10 6/uL 11/27/2022 11:47 AM [facility] Hemoglobin 15.4 12.0 - 15.6 g/dL 11/27/2022 11:47 AM [facility] Hematocrit 47.8(H) 35.0 - 45.0 % 11/27/2022 11:47 AM [facility] MCV 91.2 80.7 - 98.3 fL 11/27/2022 11:47 AM [facility] MCH 29.4 26.7 - 34.0 pg 11/27/2022 11:47 AM [facility] MCHC 32.2 30.8 - 35.9 g/dL 11/27/2022 11:47 AM [facility] RDW-SD 45.3 36.0 - 50.0 fL 11/27/2022 11:47 AM [facility] RDW-CV 13.3 11.2 - 14.8 % 11/27/2022 11:47 AM [facility] Platelet Count 269 150 - 400 10 3/uL 11/27/2022 11:47 AM CDT [facility] MPV 10.3 9.4 - 12.9 fL 11/27/2022 11:47 AM CDT [facility] nRBC Absolute 0.00 0 10 3/uL 11/27/2022 11:47 AM CDT [facility] nRBC Auto 0.0 0 /100 WBC 11/27/2022 11:47 AM CDT [facility] Blood BLOOD SPECIMEN / Unknown Venipuncture / Unknown 11/27/2022 11:34 AM CDT 11/27/2022 11:42 AM CDT Serafin Carrera MD LAB - HEMATOLOGY ANGIE LANDA [facility] [address] [place] [address], [facility] [phone] * (ABNORMAL) HEPATITIS A ANTIBODY (10/30/2022 7:22 AM NURSING SERVICE DIRECTOR) Hepatitis A Virus Antibody Total REACTIVE(A ) NON-REACT [facility] Comment: For additional information, please refer to http://education.Smart Museum/faq/YBJ917 (This link is being provided for informational/ educational purposes only.) REPORT COMMENT: FASTING:YES Test Performed at: [employer] [facility] [place] [address] HALEIGH OLIVAREZ MD Blood BLOOD SPECIMEN / Unknown 10/30/2022 7:22 AM NURSING SERVICE DIRECTOR 10/30/2022 7:23 AM NURSING SERVICE DIRECTOR Jazmyne Maldonado MD LAB - CHEMISTRY ROCÍO VILLALBA [facility] [address] [place] [address] * IGM BLOOD (10/30/2022 7:21 AM NURSING SERVICE DIRECTOR) Pathologist [facility] IgM 154 50 - 300 mg/dL [facility] Comment: REPORT COMMENT: FASTING:YES Test Performed at: [employer] [id number] [facility] [place] [address] HALEIGH OLIVAREZ MD Blood BLOOD SPECIMEN / Unknown 10/30/2022 7:21 AM NURSING SERVICE DIRECTOR 10/30/2022 7:21 AM NURSING SERVICE DIRECTOR Jazmyne Maldonado MD LAB - CHEMISTRY ROCÍO VILLALBA Performing Organization Address [facility] Co de Phone Number [address] [address] * (ABNORMAL) HEMOGLOBIN A1C (10/30/2022 7:19 AM NURSING SERVICE DIRECTOR) Hemoglobin A1c 6.0(H) <5.7 % of total Hgb [facility] Comment: For someone without known diabetes, a hemoglobin A1c value between 5.7% and 6.4% is consistent with prediabetes and should be confirmed with a follow-up test. For someone with known diabetes, a value <7% indicates that their diabetes is well controlled. A1c targets should be individualized based on duration of diabetes, age, comorbid conditions, and other considerations. This assay result is consistent with an increased risk of diabetes. Currently, no consensus exists regarding use of hemoglobin A1c for diagnosis of diabetes for children. REPORT COMMENT: FASTING:YES Test Performed at: [id number] [address] HALEIGH OLIVAREZ MD Blood BLOOD SPECIMEN / Unknown 10/30/2022 7:19 AM NURSING SERVICE DIRECTOR 10/30/2022 7:20 AM NURSING SERVICE DIRECTOR Jazmyne Maldonado MD LAB - CHEMISTRY ROCÍO VILLALBA Performing Organization Address [facility] Co de Phone Number [address] [address] * (ABNORMAL) LIPID PROFILE (10/30/2022 7:19 AM NURSING SERVICE DIRECTOR) Cholesterol 185 <200 mg/dL [facility] HDL Cholesterol 56 > OR = 50 mg/dL [facility] Triglycerides 132 <150 mg/dL [facility] LDL Calculated 106(H) mg/dL (calc) [facility] Comment: Reference range: <100 Desirable range <100 mg/dL for primary prevention; <70 mg/dL for patients with CHD or diabetic patients with > or = 2 CHD risk factors. LDL-C is now calculated using the Dayne calculation, which is a validated novel method providing better accuracy than the Friedewald equation in the estimation of LDL-C. Syd PEREZ et al. AMEENA. 2013;310(19): 1093-7905 (http://education.UniServity.Aircare/faq/IOA537) CHOL/HDLC RATIO 3.3 <5.0 (calc) [facility] Non HDL Cholesterol 129 <130 mg/dL (calc) [facility] Comment: For patients with diabetes plus 1 major ASCVD risk factor, treating to a non-HDL-C goal of <100 mg/dL (LDL-C of <70 mg/dL) is considered a therapeutic option. Test Performed at: [place] [address] HALEIGH OLIVAREZ MD Blood BLOOD SPECIMEN / Unknown 10/30/2022 7:19 AM NURSING SERVICE DIRECTOR 10/30/2022 7:20 AM NURSING SERVICE DIRECTOR Jazmyne Maldonado MD LAB - CHEMISTRY ROCÍO VILLALBA Performing Organization Address [facility] de Phone Number [facility] [address] [place] [address] * [id number] BLOOD (10/30/2022 7:18 AM NURSING SERVICE DIRECTOR) Sfhtl-2-Thgybqyo sin 146 83 - 199 mg/dL [facility] Comment: REPORT COMMENT: FASTING:YES Test Performed at: [place] [address] HALEIGH OLIVAREZ MD Blood BLOOD SPECIMEN / Unknown 10/30/2022 7:18 AM NURSING SERVICE DIRECTOR 10/30/2022 7:18 AM NURSING SERVICE DIRECTOR Jazmyne Maldonado MD LAB - CHEMISTRY ROCÍO VILLALBA Performing Organization Address [facility] Co de Phone Number [facility] [address] [place] [address] * PT-INR (10/30/2022 7:16 AM NURSING SERVICE DIRECTOR) INR 1.0 [facility] Comment: Reference Range 0.9-1.1 Moderate-intensity Warfarin Therapy 2.0-3.0 Higher-intensity Warfarin Therapy 3.0-4.0 PT 10.5 9.0 - 11.5 sec [facility] Comment: For additional information, please refer to http://education.Sticher.Aircare/faq/PFK430 (This link is being provided for informational/ educational purposes only.) REPORT COMMENT: FASTING:YES Test Performed at: [id number] [address] HALEIGH OLIVAREZ MD Blood BLOOD SPECIMEN / Unknown 10/30/2022 7:16 AM NURSING SERVICE DIRECTOR 10/30/2022 7:17 AM NURSING SERVICE DIRECTOR Jazmyne Maldonado MD LAB - COAGULATION OR DERABLES [address] [address] * ME LIVER ELASTOGRAPHY (10/23/2022 3:15 PM NURSING SERVICE DIRECTOR) Narrative Kristen Conde RN - 10/23/2022 3:15 PM NURSING SERVICE DIRECTOR Kristen Conde RN 10/24/2022 8:12 AM Diagnosis: REYES (nonalcoholic steatohepatitis) RN verified patient not , no implanted devices and NPO for prior 3 hours. Date of Exam: 10/23/2022 Liver Stiffness: (LSM, kPa) median: 15.9 IQR (interquartile range): 1.8 IQR/Median% (ideally < 30%): 11% CAP (controlled attenuation parameter): 347 Technical Difficulty: None Ordering Provider: Dr. Jazmyne Maldonado Phone Fax Jazmyne Maldonado MD PROCEDURE/MINOR SURG ICAL ORDERABLES * MITOCHONDRIAL ANTIBODY SCREEN (10/20/2022 9:17 AM NURSING SERVICE DIRECTOR) Mitochondrial M2 Antibody <20.0 U [facility] Comment: Reference Range: NEGATIVE: < OR = 20.0 EQUIVOCAL: 20.1-24.9 POSITIVE: > OR = 25.0 Test Performed at: [employer]/[facility] [address] [place] [address] VIVIANE ADAIR MD,PHD,SHANNON Blood BLOOD SPECIMEN / Unknown 10/20/2022 9:17 AM NURSING SERVICE DIRECTOR 10/20/2022 9:18 AM NURSING SERVICE DIRECTOR Beth Varghese MD LAB - CHEMISTR Y ORDERABLES Performing Organization Address [facility] [place] [address] * HEPATITIS B SURFACE ANTIBODY (10/20/2022 9:17 AM NURSING SERVICE DIRECTOR) Only the most recent of2 resultswithin the time period is included. Hepatitis B Virus Surface Antibody NON-REACTI VE NON-REACT [facility] Comment: Test Performed at: [place] [address] HALEIGH OLIVAREZ MD Blood BLOOD SPECIMEN / Unknown 10/20/2022 9:17 AM NURSING SERVICE DIRECTOR 10/20/2022 9:18 AM NURSING SERVICE DIRECTOR Beth Varghese MD LAB - CHEMISTR Y ORDERABLES Performing Organization Address [facility] [place] [address] * HEPATITIS B CORE ANTIBODY TOTAL (10/20/2022 9:17 AM NURSING SERVICE DIRECTOR) Only the most recent of2 resultswithin the time period is included. Hepatitis B Core Virus Antibody Total NON-REACTI VE NON-REACT [facility] Comment: Test Performed at: [employer] [facility] [place] [address] HALEIGH OLIVAREZ MD Blood BLOOD SPECIMEN / Unknown 10/20/2022 9:17 AM NURSING SERVICE DIRECTOR 10/20/2022 9:18 AM NURSING SERVICE DIRECTOR Beth Varghese MD LAB - CHEMISTR Y ORDERABLES Performing Organization Address City/[facility] [place] [address] * HEPATITIS B SURFACE ANTIGEN W RFLX CONFIRMATION (10/20/2022 9:17 AM NURSING SERVICE DIRECTOR) Only the most recent of2 resultswithin the time period is included. Hepatitis B Virus Surface Antigen NON-REACT MERCEDES NON-REACT [facility]ES [facility] Comment: Test Performed at: [place] [address] HALEIGH OLIVAREZ MD Confirmation [facility] Comment: Test Performed at: [employer] [id number] [place] [address] HALEIGH OLIVAREZ MD Blood BLOOD SPECIMEN / Unknown 10/20/2022 9:17 AM NURSING SERVICE DIRECTOR 10/20/2022 9:18 AM NURSING SERVICE DIRECTOR Beth Varghese MD LAB - CHEMISTR Y ORDERABLES [facility] [address] [place] [address] * IMAGING RADIOLOGY XRAY RESULTS ORDER (06/26/2022) Only the most recent of3 resultswithin the time period is included. Anatomical Region Laterality Modality Other 06/26/2022 Narrative 06/26/2022 Ordered by an unspecified provider. Scanned Document IMAGING * QUANTIFERON-TB GOLD PLUS 1-TUBE (04/28/2022 8:12 AM CDT) Only the most recent of3 resultswithin the time period is included. [facility] QuantiFERON TB Gold Plus NEGATIVE NEGATIVE [facility] Comment: Negative test result. M. tuberculosis complex infection unlikely. NIL 0.02 IU/mL [facility] MITOGEN MINUS NIL RESULT 8.61 IU/mL [facility] TB1-NIL 0.00 IU/mL [facility] TB2-NIL 0.00 IU/mL [facility] Comment: The Nil tube value reflects the background interferon gamma immune response of the patient's blood sample. This value has been subtracted from the patient's displayed TB and Mitogen results. Lower than expected results with the Mitogen tube prevent false-negative Quantiferon readings by detecting a patient with a potential immune suppressive condition and/or suboptimal pre-analytical specimen handling. The TB1 Antigen tube is coated with the M. tuberculosis-specific antigens designed to elicit responses from TB antigen primed CD4+ helper T-lymphocytes. The TB2 Antigen tube is coated with the M. tuberculosis-specific antigens designed to elicit responses from TB antigen primed CD4+ helper and CD8+ cytotoxic T-lymphocytes. For additional information, please refer to https://education.Smart Museum/faq/UQZ672 (This link is being provided for informational/ educational purposes only.) Test Performed at: [employer] [place] [address] HANNAH LAZCANO DO,MPH 04/28/2022 8:12 AM CDT 04/28/2022 8:13 AM CDT Beth Varghese MD LAB - CHEMISTR Y ORDERABLES Performing Organization Address [facility] [place] [address] * CULTURE URINE REFLEXED I (02/06/2021 7:20 AM CDT) Only the most recent of3 resultswithin the time period is included. Reflexive Urine Culture See Below [facility] Comment: NO CULTURE INDICATED Test Performed at: [place] [address] HANNAH LAZCANO DO,MPH 02/06/2021 7:20 AM CDT 02/06/2021 7:22 AM CDT Jaida Lira MD LAB - MICROBIOLOGY O RAYAERADALE Performing Organization Address [facility] [address] * CULTURE URINE REFLEXED (05/11/2020 7:27 AM CDT) Only the most recent of5 resultswithin the time period is included. Reflexive Urine Culture CULTURE INDICATED - RESULTS TO FOLLOW [facility] Comment: Test Performed at: [employer] [place] [address] HANNAH LAZCANO DO,MPH 05/11/2020 7:27 AM CDT 05/11/2020 7:28 AM CDT Jaida Lira MD LAB - MICROBIOLOGY O MAYRA Performing Organization Address [facility] [place] [address] * CHROMATIN ANTIBODY (10/27/2018 8:43 AM NURSING SERVICE DIRECTOR) Chromatin Nucleosomal Antibody <1.0 NEG <1.0 NEG AI [facility] Comment: Test Performed at: [facility] [place] [address] HANNAH LAZCANO DO,MPH Blood BLOOD SPECIMEN / Unknown 10/27/2018 8:43 AM NURSING SERVICE DIRECTOR 10/27/2018 8:44 AM NURSING SERVICE DIRECTOR Adalberto Cavazos MD LAB - SEROLOGY ORDER DEMETRI Performing Organization Address City/[facility] Co de Phone Number [facility] [phone] [place] [address] * LINDSAY (SM) ANTIBODY RUTH (10/27/2018 8:43 AM NURSING SERVICE DIRECTOR) Pathologist [facility] SM Antibody <1.0 NEG <1.0 NEG AI [facility] Comment: Test Performed at: [employer] [facility] [place] [address] HANNAH LAZCANO DO,MPH Blood BLOOD SPECIMEN / Unknown 10/27/2018 8:43 AM NURSING SERVICE DIRECTOR 10/27/2018 8:44 AM NURSING SERVICE DIRECTOR Adalberto Cavazos MD LAB - CHEMISTRY ORDSkyler VILLALBA Performing Organization Address [facility] Co de Phone Number [facility] [address] [place] [address] * PROFESSIONAL SPORTS SCOUT ANTIBODY (10/27/2018 8:43 AM NURSING SERVICE DIRECTOR) Pathologist [facility] PROFESSIONAL SPORTS SCOUT Antibody <1.0 NEG <1.0 NEG AI [facility] Comment: Test Performed at: [employer] [facility] [place] [address] HANNAH LAZCANO DO,MPH Blood BLOOD SPECIMEN / Unknown 10/27/2018 8:43 AM NURSING SERVICE DIRECTOR 10/27/2018 8:44 AM NURSING SERVICE DIRECTOR Adalberto Cavazos MD LAB - CHEMISTRY ROCÍO VILLALBA Performing Organization Address [facility] Co de Phone Number [facility] [address] [place] [address] * (ABNORMAL) SHARON BLOOD TITER (10/27/2018 8:43 AM NURSING SERVICE DIRECTOR) Only the most recent of2 resultswithin the time period is included. SHARON Pattern HOMOGENEOU S(A) [facility] Comment: Homogeneous pattern is associated with systemic lupus erythematosus (SLE), drug induced lupus and juvenile idiopathic arthritis. SHARON 1:160(H) titer [facility] Comment: Reference Range <1:40 Negative 1:40-1:80 Low Antibody Level >1:80 Elevated Antibody Level Test Performed at: [place] [address] HANNAH LAZCANO DO,MPH 10/27/2018 8:43 AM NURSING SERVICE DIRECTOR 10/27/2018 8:44 AM NURSING SERVICE DIRECTOR Adalberto Cavazos MD LAB - CHEMISTRY ROCÍO VILLALBA [facility] [address] [place] [address] * (ABNORMAL) SHARON BLOOD SCREEN W/REFLEX TITER (10/27/2018 8:43 AM NURSING SERVICE DIRECTOR) Only the most recent of2 resultswithin the time period is included. [facility] SHARON Screen POSITIVE( A) NEGATIVE [facility] Comment: SHARON IFA is a first line screen for detecting the presence of up to approximately 150 autoantibodies in various autoimmune diseases. A positive SHARON IFA result is suggestive of autoimmune disease and reflexes to titer and pattern. Further laboratory testing may be considered if clinically indicated. Visit Physician FAQs for interpretation of all antibodies in the [place], prevalence, and association with diseases at http://education.DirectRM/ faq/YTN661 Test Performed at: [employer] [address] [place] [address] HANNAH LAZCANO DO,MPH SHARON Pattern HOMOGENEO US(A) [facility] Comment: Homogeneous pattern is associated with systemic lupus erythematosus (SLE), drug induced lupus and juvenile idiopathic arthritis. SHARON 1:160(H) titer [facility] Comment: Reference Range <1:40 Negative 1:40-1:80 Low Antibody Level >1:80 Elevated Antibody Level Test Performed at: [place] [address] HANNAH LAZCANO DO,MPH Blood BLOOD SPECIMEN / Unknown 10/27/2018 8:43 AM NURSING SERVICE DIRECTOR 10/27/2018 8:44 AM NURSING SERVICE DIRECTOR Adalberto Cavazos MD LAB - CHEMISTRY ROC[facility]O VILLALBA Performing Organization Address [facility] Co de Phone Number [facility] [address] [place] [address] * SS-A/SS-B (SJOGRENS) ANTIBODY PANEL (10/27/2018 8:43 AM NURSING SERVICE DIRECTOR) Only the most recent of2 resultswithin the time period is included. Sjogren's Antibodies (SSA) <1.0 NEG <1.0 NEG AI [facility] Sjogren's Antibodies (SSB) <1.0 NEG <1.0 NEG AI [facility] Comment: Test Performed at: [facility] [place] [address] [place] [address] HANNAH LAZCANO DO,MPH Blood BLOOD SPECIMEN / Unknown 10/27/2018 8:43 AM NURSING SERVICE DIRECTOR 10/27/2018 8:44 AM NURSING SERVICE DIRECTOR Adalberto Cavazos MD LAB - CHEMISTRY ROCÍO VILLALBA Performing Organization Address [facility] Co de Phone Number [facility] [address] [place] [address] * HISTONE ANTIBODY (10/27/2018 8:43 AM NURSING SERVICE DIRECTOR) Histone Antibody <1.0 U [facility] Comment: Reference Ranges for Histone Antibodies: <1.0 Negative 1.0-1.5 Weak Positive 1.6-2.5 Moderate Positive >2.5 Strong Positive Test Performed at: [facility] [address] [place] [address] VIVIANE ADAIR MD,PHD,SHANNON Blood BLOOD SPECIMEN / Unknown 10/27/2018 8:43 AM NURSING SERVICE DIRECTOR 10/27/2018 8:44 AM NURSING SERVICE DIRECTOR Adalberto Cavazos MD LAB - CHEMISTRY ROCÍO VILLALBA Performing Organization Address [facility] Co de Phone Number [facility] [address] [place] [address] * DNA ANTIBODY DOUBLE STRANDED (10/27/2018 8:43 AM NURSING SERVICE DIRECTOR) dsDNA Antibody <1 IU/mL [facility] Comment: IU/mL Interpretation < or = 4 Negative 5-9 Indeterminate > or = 10 Positive Test Performed at: [facility] [employer] [address] [place] [address] HANNAH LAZCANO DO,MPH Blood BLOOD SPECIMEN / Unknown 10/27/2018 8:43 AM NURSING SERVICE DIRECTOR 10/27/2018 8:44 AM NURSING SERVICE DIRECTOR Adalberto Cavazos MD LAB - HEMATOLOGY ORD ERABLES [facility] [address] [place] [address] * URINALYSIS MICROSCOPIC ONLY REFLEXED (08/14/2018 8:45 AM NURSING SERVICE DIRECTOR) Only the most recent of23 resultswithin the time period is included. WBC UA 0-5 0 - 5 /hpf [facility] INSURANCE BILL RBC UA 0-2 0 - 2 /hpf [facility] INSURANCE BILL Epithelial Cells (non renal) 0-10 0 - 10 /hpf [facility] INSURANCE BILL Epithelial Cells (renal) NOT NEEDED [facility] INSURANCE BILL Comment:Ancillary determined the test is not needed Casts ua NOT NEEDED [facility] INSURANCE BILL Comment:Ancillary determined the test is not needed Casts UA NOT NEEDED [facility] INSURANCE BILL Comment:Ancillary determined the test is not needed Crystals UA NOT NEEDED [facility] INSURANCE BILL Comment:Ancillary determined the test is not needed Crystals UA NOT NEEDED [facility] INSURANCE BILL Comment:Ancillary determined the test is not needed Mucus UA Present Not Estab. [facility] INSURANCE BILL Bacteria UA Few None seen/Few [facility] INSURANCE BILL Yeast UA NOT NEEDED [facility] INSURANCE BILL Comment:Ancillary determined the test is not needed Trichomonas UA NOT NEEDED [facility] INSURANCE BILL Comment:Ancillary determined the test is not needed Comment Urine NOT NEEDED [facility] INSURANCE BILL Comment:Ancillary determined the test is not needed 08/14/2018 8:45 AM NURSING SERVICE DIRECTOR 08/14/2018 Narrative Resulting Agency Comment [facility] [place] [address] [facility] [id number] Adalberto Cavazos MD LAB - URINALYSIS ORD ERABLES [facility] INSURANCE BILL [address] [place] [address] * STREP A SCREEN - POINT OF CARE (AMB) STL (08/08/2018 3:25 PM NURSING SERVICE DIRECTOR) Only the most recent of2 resultswithin the time period is included. Pathologist [facility] Strep A Rapid POCT Negative Negative Strep A Internal Control Present Lot # [id number] Expiration Date 11 04 2019 Throat ENTIRE THROAT (SURFACE REGION OF NECK) / Unknown 08/08/2018 3:25 PM NURSING SERVICE DIRECTOR Miriam Vega APRN-DIRECTOR OF CATEGORY MANAGEMENT LAB - POINT OF CA RE ORDERABLES * (ABNORMAL) URINALYSIS W/MICROSCOPIC NO CULTURE (05/11/2018 12:38 PM CDT) Only the most recent of10 resultswithin the time period is included. Pathologist [facility] Specific [place] UA 1.018 1.005 - 1.030 [facility] INSURANCE BILL pH UA 5.0 5.0 - 7.5 [facility] INSURANCE BILL Color UA Yellow Yellow [facility] INSURANCE BILL Appearance Clear Clear [facility] INSURANCE BILL Leukocyte UA 2+(A) Negative [facility] INSURANCE BILL Protein UA Negative Negative/Tra ce [facility] INSURANCE BILL Glucose UA Negative Negative [facility] INSURANCE BILL Ketone UA Negative Negative [facility] INSURANCE BILL Occult Blood Urine Negative Negative [facility] INSURANCE BILL Bilirubin UA Negative Negative [facility] INSURANCE BILL Urobilinogen 0.2 0.2 - 1.0 mg/dL [facility] INSURANCE BILL Nitrite UA Negative Negative [facility] INSURANCE BILL Microscopic Examination Urine See below: [facility] INSURANCE BILL Comment:Microscopic was hunter cated and was performed. Microscopic Examination Urine NOT NEEDED [facility] INSURANCE BILL Comment:Ancillary determined the test is not needed 05/11/2018 12:3 8 PM CDT 05/11/2018 Narrative Resulting Agency Comment [facility] [place] [address] [facility] [id number] Marleny Larson MD LAB - URINALYSIS ORD ERABLES [facility] INSURANCE BILL [address] [place] [address] * QUANTIFERON TB-GOLD (10/10/2017 9:05 AM NURSING SERVICE DIRECTOR) Only the most recent of4 resultswithin the time period is included. [facility] QuantiFERON TB Gold [facility] ([facility]) Comment:Incubated, testing t o follow. Blood specimen (specimen) BLOOD SPECIMEN / Unknown 10/10/2017 9:05 AM NURSING SERVICE DIRECTOR 10/10/2017 Narrative [facility] ([facility]) - 10/14/2017 7:13 AM NURSING SERVICE DIRECTOR Performed at: 01 - [address] [id number] Pyridine Operator: Kelli Sharp MD, Phone: [phone] Marleny Larson MD LAB - CHEMISTRY [facility] VILL[facility] ([facility]) [address] [place] [address], [facility] * (ABNORMAL) VITAMIN D 25-HYDROXY (05/23/2017 8:56 AM CDT) Pathologist [facility] Vitamin D, 25 Hydroxy 16.3(L) 30.0 - 100.0 ng/mL [facility] ([place]) Comment: Vitamin D deficiency has been defined by the [place] of [employer] and an Endocrine Society practice guideline as a level of serum 25-OH vitamin D less than 20 ng/mL (1,2). The Endocrine Society went on to further define vitamin D insufficiency as a level between 21 and 29 ng/mL (2). 1. IOM ([place] [employer]). 2010. Dietary reference intakes for calcium and D. [place]: The National Academies Press. 2. Bin MF, Nat NC, Dick GARCIA, et al. Evaluation, treatment, and prevention of vitamin D deficiency: an Endocrine Society clinical practice guideline. JCEM. 2010; 96(7):1911-30. 05/23/2017 8:56 AM CDT 05/23/2017 Narrative [facility] ([place]) - 05/25/2017 9:07 AM CDT Performed at: - [facility] [address] [place], [place] [id number] P[employer] Operator: Bhavin Sanders PhD, Phone: [phone] Marleny Larson MD LAB - CHEMISTRY ROC[facility]O VILLALBA Performing Organization Address [facility] Co de Phone Number [facility] ([facility] * (ABNORMAL) VITAMIN D 25-HYDROXY D2+D3 BY TANDEM MASS (10/27/2016 4:05 PM NURSING SERVICE DIRECTOR) Vitamin D, 25 Hydroxy 18(L) ng/mL [facility] (BEAKER) Comment: Reference Range: All Ages: Target levels 30 - 100 Vitamin D, 2 25 Hydroxy 3.5 ng/mL [facility] (BEAKER) Vitamin D 3 25 Hydroxy 14 ng/mL [facility] (BEAKER) Blood specimen (specimen) BLOOD SPECIMEN / Unknown 10/27/2016 4:05 PM NURSING SERVICE DIRECTOR 10/27/2016 Narrative [facility] (BEAKER) - 11/01/2016 7:11 AM NURSING SERVICE DIRECTOR Performed at: - [facility] Endocrinology [address] [place] [id number] Pyridine Operator: Allen Lawrence MD, Phone: [phone] Specimen Comment: A courtesy copy of this report has been sent to Specimen Comment: [facility] Marleny Larson MD LAB - CHEMISTRY ROCÍO VILLALBA Performing Organization Address [facility] Co de Phone Number [facility] ([place]) * RHEUMATOID FACTOR BLOOD QUANTITATIVE (10/27/2016 4:05 PM NURSING SERVICE DIRECTOR) Pathologist [facility] RA latex Turbidimetry <10.0 0.0 - 13.9 IU/mL [facility] (BEAKER) Blood specimen (specimen) BLOOD SPECIMEN / Unknown 10/27/2016 4:05 PM NURSING SERVICE DIRECTOR 10/27/2016 Narrative [facility] (BEAKER) - 11/01/2016 7:11 AM NURSING SERVICE DIRECTOR Performed at: - [address] [id number] P[employer]idine Operator: Bhavin Sandres PhD, Phone: [phone] Specimen Comment: A courtesy copy of this report has been sent to Specimen Comment: [facility] Marleny Larson MD LAB - CHEMISTRY ROCÍO VILLALBA Performing Organization Address City/[facility] de Phone Number [facility] ([facility]) * CYCLIC CITRUL PEPTIDE AB IGG (CCP) (10/27/2016 4:05 PM NURSING SERVICE DIRECTOR) Cyclic Citrullinated Peptide Antibody 4 0 - 19 units [facility] ([facility]) Comment: Negative <20 Weak positive 20 - 39 Moderate positive 40 - 59 Strong positive >59 Blood specimen (specimen) BLOOD SPECIMEN / Unknown 10/27/2016 4:05 PM NURSING SERVICE DIRECTOR 10/27/2016 Narrative [facility] ([facility]) - 11/01/2016 7:11 AM NURSING SERVICE DIRECTOR Performed at: - [address] [id number] Pyridine Operator: Hannah Thompson MD, Phone: [phone] Specimen Comment: A courtesy copy of this report has been sent to Specimen Comment: [facility] Marleny Larson MD LAB - CHEMISTRY ROCÍO VILLALBA Performing Organization Address [facility] de Phone Number [facility] ([facility]) * HEPATITIS C ANTIBODY (10/27/2016 4:05 PM NURSING SERVICE DIRECTOR) Hepatitis C Virus Antibody <0.1 0.0 - 0.9 s/co ratio [facility] ([facility]) Comment: Negative: < 0.8 Indeterminate: 0.8 - 0.9 Positive: > 0.9 The CDC recommends that a positive HCV antibody result be followed up with a HCV Nucleic Acid Amplification test ([id number]). Blood specimen (specimen) BLOOD SPECIMEN / Unknown 10/27/2016 4:05 PM NURSING SERVICE DIRECTOR 10/27/2016 Narrative [facility] ([facility]) - 11/01/2016 7:11 AM NURSING SERVICE DIRECTOR Performed at: - [address] [id number] Pyridine Operator: Bhavin Sanders PhD, Phone: [phone] Specimen Comment: A courtesy copy of this report has been sent to Specimen Comment: [facility] Marleny Larson MD LAB - CHEMISTRY ROCÍO VILLALBA Performing Organization Address [facility]/State/ZIP Co de Phone Number [facility] [place]) * HLA TYPING B27 (10/27/2016 4:04 PM NURSING SERVICE DIRECTOR) HLA-B27 Negative [facility]) Comment: HLA-B*27 Negative HLA allele interpretation for all loci based on IMGT/HLA database version 3.25.0 HLA Lab CLIA ID Number [id number] This test was performed using PCR (Polymerase Chain Reaction)/SSOP (Sequence Specific Oligonucleotide Probes) technique. SBT (Sequence Based Typing) and/or SSP (Sequence Specific Primers) may be used as supplemental methods when necessary. Please contact HLA Customer Service at if you have any questions. Director of HLA Laboratory Dr Cirilo Franco, PhD Blood specimen (specimen) BLOOD SPECIMEN / Unknown 10/27/2016 4:04 PM NURSING SERVICE DIRECTOR 10/27/2016 Narrative [facility] [place]) - 11/01/2016 7:11 AM NURSING SERVICE DIRECTOR Performed at: 01 - [address] [id number] Pyridine Operator: Cirilo Franco PhD, Phone: [phone] Marleny Neo FORDE LAB - CHEMISTRY ROCÍO VILLALBA [facility] [place]) Care Teams Plumbing Drafter Relationship Specialty Start Date End Date Bhavna Menon MD [address] [place] [address] PCP - General Family Medicine 10/23/22 Dell Lynn MD [address] [place] [address] Orthopedic Surgery 10/23/22
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
--- OUTSIDE RECORDS SUMMARY | 2024-10-18 10:06 | XMS_ITS | Patient Health Record ---
Author Organization [facility] Address [address] [facility] [address] [place], [place] [id number] Care Team Providers Care Micro Computer Specialist Name Role Phone ALLEN SAUNDERS Unavailable [phone] Bhavna Menon Unavailable Unavailable Allergies Allergen (clinical drug ingredient) Drug/Non Drug Allergy documented on EMR Reaction Allergy Type Onset Date Status Iodinated contrast media (substance) IVP Dye, Iodine Containing (uncoded) Unknown Allergy 01/02/2021 active Shellfish (FN) Shellfish-derived Products Unknown Drug Allergy Active Reason For Referral No Information Encounters Encounter Location Date Provider Diagnosis [facility] [address] [place], [place] [id number] 06/20/2024 ALLEN NARVAEZKENANLoan Ingrowing nail L60.0 ; Pain in right toe(s) M79.674 and Pain in left toe(s) M79.675 Assessments Encounter Date Diagnosis (ICD Code) Assessment Notes Treatment Notes Treatment Clinical Notes Section Notes 06/20/2024 Ingrowing nail (ICD-10 - L60.0) Slant Back Toenail: Following skin prep, the offending nail border was debrided without anesthesia. The patient was instructed on monitoring for infection or recurrence. Soaks: Patient was instructed to soak the affected foot with warm water and epsom salts 15 minutes twice a day. Once the patient is off of blood thinners, we may pursue matrixectomy to prevent regrowth. The patient understands 06/20/2024 Pain in right toe(s) (ICD-10 - M79.674) 06/20/2024 Pain in left toe(s) (ICD-10 - M79.675) Plan Of Treatment No Information Insurance Providers Payer Name Payer Address Payer Phone Subscriber Number Group Number Insured Name Patient Relationship to Insured Coverage Start Date Coverage End Date [facility] [address] [address] [place] [address] [id number] LINDSAY HIGH Self - patient is the insured Medical (General) History Medical History History ICD Code Open Sores Skin Disorder Thyroid Disease Blood clots high blood pressure Arthritis
--- OUTSIDE RECORDS SUMMARY | 2024-10-18 10:06 | XMS_ITS ---
Author Organization [facility] Address [address] [place], [place] [id number] Care Team Providers Care Clinical Resource Director Name Role Phone ALLEN SAUNDERS Unavailable [phone] Bhavna Menon Unavailable Unavailable REASON FOR VISIT *General care Encounters Encounter Location Date Provider Diagnosis [facility] [place] [address] [facility] [address] [place], [place] [id number] 09/19/2024 ALLEN SAUNDERS Plan Of Treatment No Information Progress Notes * LINDSAY HIGH EDOB: 3 (59 yo F)Acc No.[id number]:09/19/2024 Patient: ROSALBA NELSONN Skyler Provider: Skyelr Saunders DPM :1965 A ge:59 Y S ex:Female Date:09/19/2024 Address:[facility] [address] [place], [place] Subjective: * Chief Complaints: * 1 . *General care. * Medical History: Objective: * Vitals: Assessment: Plan: * Treatment: * Billing Information: * Visit Code: * Procedure Codes: * Electronic signature of ALLEN SAUNDERS DPM on 10/18/2024 at 10:06 AM WELDING MACHINE OPERATOR ARC Sign off status: Pending * Provider: Skyler Saunders DPM Date: 0 09/19/2024 Generated for Printi ng/Fadaysig/eTransmitting on: 0 10/18/2024 10:06 AM WELDING MACHINE OPERATOR ARC
--- OUTSIDE RECORDS SUMMARY | 2024-10-18 10:07 | XMS_ITS | Clinical Summary ---
Author Organization [facility] Address [address] [place] [address] Care Team Providers Care Truck Driver Instructor Name Role Phone Unavailable Primary Care Provider Unavailabl e Social History Tobacco Use Types Packs/Day Years Used Date Smoking Tobacco: Never Assessed Comments Unknown Sex and Gender Information Value Date Recorded Sex Assigned at Not on file Legal Sex Female 8:34 PM CDT Gender Identity Not on file Sexual Orientation Not on file Plan of Treatment Health Maintenance Due Date Last Done Comments Cervical Cancer Screening Pa p Smear (Age 30 to 64) Every 3 Years 1963 Colorectal Cancer Screening Colonoscopy (10 Years) 1963 Annual Physical 1966 Hepatitis C 1981 DTaP, Tdap and Td Vaccines ( 1 - Tdap) 1982 Cervical Cancer Screening Pa p with HPV Testing (Age 30 to 64) Every 5 Years 1993 Cervical Cancer Screening with HPV 1993 Mammogram Screening 2003 Zoster Vaccines (1 of 2) 2013 COVID-19 Vaccine (2023-2 5 season) 2024 Influenza Adult (#1) 2024 RSV Immunization or 60+ Years (1 - 1-dose 75+ series) 2038 Meningococcal B Vaccine Aged Out No l onger eligible based on patient's age to complete this topic Meningococcal Vaccine Aged Out No leena noah eligible based on patient's age to complete this topic Pneumococcal Vaccine: Pediat rics (0 to 5 Years) and At-Risk Patients (6 to 64 Years) Aged Out No longer eligible b ased on patient's age to complete this topic RSV Immunizations Under 20 Months Aged Out No longer eligible based on patient's age to complete this topic
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
== END 2024-10-18 09:20 | disposition home or self-care (01) ==
LOC: ANHIMG 09:21
PROVIDERS: PCP Family Medicine; Visit Provider Orthopaedic Surgery
DX: M17.11 Unilateral primary osteoarthritis, right knee (principal)
CPT/HCPCS: 73564

== ENCOUNTER 2024-12-07 07:22 | Outpatient (RCR) | payer OTHER, SELFPAY ==
[2024-09-08 00:04] VITALS: BMI 33.2
== END 2024-12-19 23:59 | disposition home or self-care (01) ==
LOC: ANHWOC 07:22
PROVIDERS: PCP Family Medicine; Visit Provider Family Medicine
DX: T86.829 Unspecified complication of skin graft (allograft) (autograft) (principal)
CPT/HCPCS: 99213; A9270; G0463

== ENCOUNTER 2025-03-15 07:44 | Outpatient (RCR) | payer OTHER, SELFPAY ==
[2024-12-20 00:04] VITALS: BMI 33.2
== END 2025-03-28 23:59 | disposition home or self-care (01) ==
LOC: ANHWOC 07:44
PROVIDERS: PCP Family Medicine; Visit Provider Family Medicine
DX: T86.829 Unspecified complication of skin graft (allograft) (autograft) (principal)
CPT/HCPCS: 99213; A9270; G0463

== ENCOUNTER 2025-05-10 07:09 | Outpatient (RCR) | payer OTHER, SELFPAY ==
[2025-03-29 00:04] VITALS: BMI 33.2
== END 2025-07-11 23:59 | disposition home or self-care (01) ==
LOC: ANHWOC 07:09
PROVIDERS: PCP Family Medicine; Visit Provider Family Medicine
DX: T86.829 Unspecified complication of skin graft (allograft) (autograft) (principal)
CPT/HCPCS: 99213; G0463

== ENCOUNTER 2025-05-30 07:45 | Outpatient (CLI) | payer OTHER, SELFPAY ==
--- OUTSIDE RECORDS SUMMARY | 2024-09-19 09:20 | XMS_ITS ---
Author Organization [facility] Address [address] [place], [place] [id number] Care Team Providers Care Technical Support Associate Name Role Phone ALLEN SAUNDERS Unavailable [phone] Bhavna Menon Unavailable Unavailable REASON FOR VISIT *General care Encounters Encounter Location Date Provider Diagnosis [facility] [address] [address] [place], [place] [id number] 09/19/2024 ALLEN SAUNDERS Plan Of Treatment No Information Progress Notes * LINDSAY HIGH EDOB: 3 (59 yo F)Acc No.[id number]:09/19/2024 Patient: ROSALBA NELSONN Skyler Provider: Skyler Saunders DPM :1965 A ge:59 Y S ex:Female Date:09/19/2024 Address:[facility] [address] [place], [place] Subjective: * Chief Complaints: * 1 . *General care. * Medical History: Objective: * Vitals: Assessment: Plan: * Treatment: * Billing Information: * Visit Code: * Procedure Codes: * Electronic signature of ALLEN SAUNDERS DPM on 05/30/2025 at 07:55 AM CDT Sign off status: Pending * Provider: Skyler Saunders DPM Date: 09/19/2024 Generated for Printi ng/Faxing/eTransmitting on: 0 05/30/2025 07:55 AM CDT
--- NOTE | ~2025-05-30 | DEXA_ITS ---
Bone Density Report Name: LINDSAY HIGH Age: 59 Sex: Female Ethnicity: White Date of : 1965 Indication: hyperparathyroidism; height loss; history of glucocorticoids; secondary osteoporosis; Referring Provider: ARIN KHAN Study: Bone densitometry was performed. Exam Date: May 30, 2025 Accession number: [id number] Bone Density: Region BMD T-score Z-score Classification AP Spine(L1-L4) 1.183 1.2 2.8 Normal Femoral Neck (Left) 0.694 -1.4 0.0 Osteopenia Total Hip (Left) 0.935 -0.1 1.0 Normal Femoral Neck (Right) 0.689 -1.4 -0.1 Osteopenia Total Hip (Right) 0.910 -0.3 0.8 Normal Total Hip Mean 0.922 -0.2 0.9 Normal World Health Organization criteria for BMD impression classify patients as: Normal (T-score at or above -1.0), Osteopenia (T-score between -1.0 and -2.5), or Osteoporosis (T-score at or below -2.5). 10-year Fracture Risk(1): Major Osteoporotic Fracture 12% Hip Fracture 1.1% Reported Risk Factors: [place] (), Neck BMD=0.694, BMI=38.9, glucocorticoids, secondary osteoporosis (1) FRAX(R) Version 3.08. Fracture probability calculated for an untreated patient. Fracture probability may be lower if the patient has received treatment. Clinical Information Provided by Patient: Has taken Glucocorticoids Has secondary osteoporosis Has used the following medications: Vitamin D Has the following medical conditions: Hyperparathyroidism Patient maximum height was 67 Menopause Age: 48 Drinks caffeinated beverages Onset of menses at age 13 Number of children 0 Impression: The patient has low bone mass, based on the Left Femoral Neck T-score. The patient has an estimated ten-year risk of hip fracture of 1.1% and an estimated ten-year risk of major fracture of 12%, based on the WHO FRAX algorithm. The patient has risk factors, including: history of glucocorticoid therapy. Discussion: BONE DENSITY IS LOW AT ONE OR MORE SKELETAL SITES. This patient's lowest T-score is low at one or more skeletal sites. It meets the World Health Organization's (WHO) criteria for ?low bone mass? (T-score between -1.0 and -2.5). The patient's 10-year risk of fracture as calculated by FRAX is less than the threshold where pharmacological therapy is recommended by the National Osteoporosis Foundation (NOF). However, all treatment decisions require clinical judgment and consideration of individual patient factors, including patient preferences, comorbidities, previous drug use, risk factors not captured in the FRAX model (e.g., frailty, falls, vitamin D deficiency, increased bone turnover, interval significant decline in bone density) and possible under or overestimation of fracture risk by FRAX. The patient should follow a healthful lifestyle (good nutrition with adequate calcium and vitamin D, and appropriate weight-bearing exercise). Follow-Up: Consider repeating this study in 2 to 3 years to reassess this patient's status, or sooner if there is some new clinical indication. Reported by: SHUBHAM on 05/30/2025 8:39:00 AM. Reviewed, dictated and finalized at location A.
--- NOTE | ~2025-05-30 | MM_ITS ---
EXAMINATION: MM screening [facility] BI w benson HISTORY: Screening TECHNIQUE: Craniocaudal and mediolateral oblique 3-D tomosynthesis images were obtained and synthetic 2-D images were generated. CAD analysis was submitted and interpreted. COMPARISON: Comparison to multiple prior studies sequentially, with oldest reviewed study dated 01/04/2019. BREAST PARENCHYMAL COMPOSITION: There are scattered areas of fibroglandular density. FINDINGS: There is no evidence of suspicious mass, calcification, or architectural distortion to suggest malignancy in either breast. Scattered benign-appearing calcifications are present. IMPRESSION: 1. No mammographic evidence of malignancy. 2. Recommend routine screening mammography in one year. BI-RADS Category 2: Benign finding(s). Reviewed, dictated and finalized at location B.
--- OUTSIDE RECORDS SUMMARY | 2025-05-30 07:55 | XMS_ITS | Clinical Summary ---
Author Organization [facility] Address [address] [place] [address] Care Team Providers Care Flume Ride Operator Name Role Phone Bhavna Menon MD Primary Care Provider [phone] Dell Lynn MD Unavailable [phone] Source Comments [facility],non-owned Affiliates and Associated Physician Practices is amultiple site organization consisting of ambulatory clinics and hospital sitesin [place], [place], [place] and [place]. This disclosure is being madepursuant to the Care Everywhere program and may not contain all information available regarding this patient. Last updated 18.[facility] Allergies Active Allergy Reactions Criticality Noted Date Comments Contrast-Gadolinium Agents For Mri Urticaria Medium 02/28/2017 Iohexol Other,Shortness of Breath High 10/27/2016 Hmg-Coa-R Inhibitors Other Medium 06/11/2022 Increase in joint pain. Tirzepatide GI Discomfort,Nausea and/or Vomiting Low 01/25/2024 Nausea & Vomiting Medications * Be aware that medications may not be up to date on this document. Alwaysverify current medications with the patient. Cholecalcifero l (Vitamin D) 50 MCG (1999) capsule Take 1 (one) capsule by mouth once daily Active ezetimibe (Zetia) 10 MG tablet Take 1 (one) tablet by mouth once daily Active lisinopril (Prinivil; Zestril) 20 MG tablet Take 1 (one) tablet by mouth once daily 3 Active levothyroxine (Synthroid) 150 MCG tablet 1 (one) tablet by Per G Tube route once daily 4 Active clobetasol (Temovate) 0.05 % cream 5 Active sulfaSALAzine EC (Azulfidine Entab) 500 MG tablet Take 2 (two) tablets by mouth 2 times daily with morning and evening meal 360 tablet 3 5 Active Adalimumab-ryv k (Simlandi, 1 Pen,) 40 MG/0.4ML AJKTIndication s:Psoriatic arthritis (HCC) Inject 40 mg subcutaneously every 14 days 6 Each 3 5 Active Active Problems Problem Noted Date Diagnosed Date REYES (nonalcoholic steatohepatitis) 11/26/2022 Encounter for long-term (cur rent) use of high-risk medication 06/26/2018 Psoriatic arthritis 04/15/2017 Therapeutic drug monitoring 12/03/2016 Psoriasis 10/27/2016 Polyarthralgia 10/27/2016 Encounters Date Type Department Care Team Description 04/28/2025 Orders Only [facility] - Rheumatology [address] [place] [phone] Beth Varghese MD Psoriatic arthritis ([facility]); Encounter for therapeutic drug monitoring; High risk medications (not anticoagulants) long-term use 03/07/2025 12:40 PM CDT Office Visit [facility] - Rheumatology [address] [place] [phone] Beth Varghese MD Psoriatic arthritis ([facility]) (Primary Dx); Encounter for therapeutic drug monitoring; High risk medications (not anticoagulants) long-term use; Screening-pulmonary TB 03/07/2025 Travel from Last 3 Months Immunizations Immunization Administration Dates Next Due FLU, HISTORIC VACCINE [...] Date Smoking Tobacco: Former Smokeless Tobacco: Never Tobacco Cessation:Counseling Given: Not Answered Alcohol Use Standard Drinks/Week Comments No 0 (1 standard drink = 0.6 oz pur e alcohol) PHQ-2 Answer Date Recorded Patient Health Questionnaire-2 Score 0 11/02/2024 Comments No Sex and Gender Information Value Date Recorded Sex Assigned at Not on file Legal Sex Female 7:59 AM CDT Gender Identity Not on file Sexual Orientation Not on file Last Filed Vital Signs Vital Sign Reading Time Taken Comments Blood Pressure 137/76 03/07/2025 12:44 PM CDT Pulse 79 03/07/2025 12:44 PM CDT Temperature 36 C (96.8 F) 03/07/2025 12:44 PM CDT Respiratory Rate 12 11/27/2022 5:30 PM CDT Oxygen Saturation 93% 11/02/2024 2:24 PM ORTHOPEDIC PHYSICAL THERAPIST Inhaled Oxygen Concentration - - Weight 105.7 kg (233 lb) 03/07/2025 12:44 PM CDT Height 170.2 cm (5' 7.01) 03/07/2025 12:44 PM C DT Body Mass Index 36.48 03/07/2025 12:44 PM CDT Plan of Treatment Upcoming Encounters Date Type Department Care Team (Late st Contact Info) Description 09/20/2025 12:20 PM ORTHOPEDIC PHYSICAL THERAPIST Office Visit [facility] - Rheumatology [address] [place] [address], [place] [address] Beth Varghese MD [address] [place] [address] [place] [phone] Health Maintenance Due Date Last Done Comments COLOGUARD (AGES 45-75) - COLON CA SCREENING 1963 COLON MONITORING 1963 COLONOSCOPY - COLON CA SCREENING 1963 CT COLONOGRAPHY - COLON CA SCREENING 1963 Colorectal Cancer Screening 1963 FIT - COLON CA SCREENING 1963 FLEX SIG - COLON CA SCREENING 1963 MAMMOGRAM 1963 HIV SCREENING 1978 DTAP/TDAP/TD VACCINES (1 - Tdap) 1982 PAP SMEAR 1984 ZOSTER VACCINE (1 of 2) 2013 PNEUMOCOCCAL VACCINE 50+ (2 of 2 - PCV20 or PCV21) 12/09/2017 12/09/2016 COVID-19 VACCINE (4 - season) 2025 08/06/2021, 12/01/2020, 11/08/2020 INFLUENZA VACCINE (#1) 2025 2, 05/31/2021, 05/12/2020, Additional history exists SCREENING FOR DIABETES 03/01/2028 , 10/27/2024, 09/09/2023, Additional history exists LIPID TESTING 02/10/2029 02/11/2024, 01/06, 01/30/2024, Additional history exists Respiratory Syncytial Virus (RSV) Vaccine Pt: or over 60 yrs (1 - 1-dose 75+ series) 2038 HEPATITIS C SCREENING Completed 10/30/2023 , 10/20/2022, 10/27/2016 DEPRESSION SCREENING Completed 11/02/2024 HEPATITIS B VACCINE Aged Out No longe r eligible based on patient's age to complete this topic HIB VACCINE Aged Out No longer eligi ble based on patient's age to complete this topic HPV VACCINE Aged Out No longer eligi ble based on patient's age to complete this topic MENINGOCOCCAL (Group B) VACCINE SHARED DECISION-MAKING Aged Out No longer eligible based on patient's age to complete this topic MENINGOCOCCAL GROUPS A/C/Y/W VACCINE Aged Out No longer eligible based on patient's age to complete this topic Procedures Procedure Name Priority Date/Time Associated Diagnosis Comments QUANTIFERON-TB GOLD PLUS 1-TUBE 03/30/2025 8:21 AM CDT URINALYSIS W/MICROSCOPIC REFLEX TO CULTURE Routine 03/01/2025 7:58 AM CDT Psoriatic arthritis (HCC) Encounter for therapeutic drug monitoring High risk medications (not anticoagulants) long-term use ERYTHROCYTE SEDIMENTATION RATE Routine 03/01/2025 7:58 AM CDT Psoriatic arthritis (HCC) Encounter for therapeutic drug monitoring High risk medications (not anticoagulants) long-term use C-REACTIVE PROTEIN Routine 03/01/2025 7: 58 AM CDT Psoriatic arthritis (HCC) Encounter for therapeutic drug monitoring High risk medications (not anticoagulants) long-term use COMPREHENSIVE METABOLIC PANEL Routine 03/01/2025 7:58 AM CDT Psoriatic arthritis (HCC) Encounter for therapeutic drug monitoring High risk medications (not anticoagulants) long-term use CBC W AUTO DIFFERENTIAL Routine 03/01/2025 7:58 AM CDT Psoriatic arthritis (HCC) Encounter for therapeutic drug monitoring High risk medications (not anticoagulants) long-term use CULTURE URINE 03/01/2025 7:58 AM CDT CULTURE URINE REFLEXED II 03/01/2025 7:58 AM CDT HEPATITIS C AB W/RFLX TO HCV RNA QN PCR 10/30/2023 8:28 AM ORTHOPEDIC PHYSICAL THERAPIST LIPID PROFILE Routine 10/30/2022 7:19 AM ORTHOPEDIC PHYSICAL THERAPIST REYES (nonalcoholic steatohepatitis) from Last 3 Months or Most Recently Relevant to Health Maintenance Results * QUANTIFERON-TB GOLD PLUS 1-TUBE (03/30/2025 8:21 AM CDT) [facility] QuantiFERON TB Gold Plus NEGATIVE NEGATIVE [facility] Comment: Negative test result. M. tuberculosis complex infection unlikely. NIL 0.02 IU/mL [facility] MITOGEN MINUS NIL RESULT >10.00 IU/mL [facility] TB1-NIL 0.00 IU/mL [facility] TB2-NIL [...] T-lymphocytes. For additional information, please refer to https://education.GooseChase/faq/SUV846 (This link is being provided for informational/ educational purposes only.) Test Performed at: [facility] [place] [address] [place] [address] HALEIGH OLIVAREZ MD 03/30/2025 8:21 AM CDT 03/30/2025 8:25 AM CDT Beth Varghese MD LAB - CHEMISTRY ORDERA BLES Final Result Performing Organization Address [facility] de Phone Number [address] [address] * CULTURE URINE REFLEXED II (03/01/2025 7:58 AM CDT) Reflexive Urine Culture See Below [facility] Comment: CULTURE INDICATED - RESULTS TO FOLLOW Test Performed at: [facility] [address] HALEIGH OLIVAREZ MD 03/01/2025 7:58 AM CDT 03/01/2025 7:59 AM CDT Beth Varghese MD LAB - MICROBIOLOGY ORD ERABLES Final Result Performing Organization Address [facility]/ZIP Co de Phone Number [address] [address] * (ABNORMAL) URINALYSIS W/MICROSCOPIC REFLEX TO CULTURE (03/01/2025 7:58 AM CDT) Color UA DARK YELLOW YELLOW [facility] Appearance CLOUDY(A) CLEAR [facility] Specific Sharon UA 1.019 1.001 - 1.035 [facility] pH UA < OR = 5.0(A) 5.0 - 8.0 [facility] Glucose UA NEGATIVE NEGATIVE [facility] Bilirubin UA NEGATIVE NEGATIVE [facility] Ketone UA NEGATIVE NEGATIVE [facility] Blood UA NEGATIVE NEGATIVE [facility] Protein UA NEGATIVE NEGATIVE [facility] Nitrite NEGATIVE NEGATIVE [facility] Leukocyte Esterase 1+(A) NEGATIVE [facility] WBC UA 0-5 < OR = 5 /HPF [facility] RBC UA NONE SEEN < OR = 2 /HPF [facility] Epithelial Cell UA 6-10(A) < OR = 5 /HPF [facility] Bacteria UA NONE SEEN NONE SEEN /HPF [facility] Hyaline Casts NONE SEEN NONE SEEN /LPF [facility] Note See Below [facility] Comment: This urine was analyzed for the presence of WBC, RBC, bacteria, casts, and other formed elements. Only those elements seen were reported. Test Performed at: [facility] [address] HALEIGH OLIVAREZ MD Urine MID-STREAM URINE SPECIMEN / Unknown 03/01/2025 7:58 AM CDT 03/01/2025 7:59 AM CDT Beth Varghese MD LAB - URINALYSIS ORDER DEMETRI Final Result Performing Organization Address [facility] Co de Phone Number [address] [address] * C-REACTIVE PROTEIN (03/01/2025 7:58 AM CDT) C-Reactive Protein 7.3 <8.0 mg/L [facility] Comment: Test Performed at: [facility] [address] [address] HALEIGH OLIVAREZ MD Blood BLOOD SPECIMEN / Unknown 03/01/2025 7:58 AM CDT 03/01/2025 7:59 AM CDT Beth Varghese MD LAB - CHEMISTRY ORDERA BLES Final Result Performing Organization Address [facility]/ZIP Co de Phone Number [address] [address] * CULTURE URINE (03/01/2025 7:58 AM CDT) Culture [facility] Comment: CULTURE, URINE, ROUTINE Micro Number: [id number] Test Status: Final Specimen Source: Urine Specimen Quality: Adequate Result: Mixed genital lashonda isolated. These superficial bacteria are not indicative of a urinary tract infection. No further organism identification is warranted on this specimen. If clinically indicated, recollect clean-catch, mid-stream urine and transfer immediately to Urine Culture Transport Tube. Test Performed at: [facility] [address] HALEIGH OLIVAREZ MD 03/01/2025 7:58 AM CDT 03/01/2025 7:59 AM CDT Beth Varghese MD LAB - MICROBIOLOGY ORD ERABLES Final Result Performing Organization Address [facility] Co de Phone Number [address] [address] * (ABNORMAL) ERYTHROCYTE SEDIMENTATION RATE (03/01/2025 7:58 AM CDT) Erythrocyte Sedimentation Rate Westergren 33(H) < OR = 30 mm/h [facility] Comment: Test Performed at: [facility] [place] [id number] [place] [address] HALEIGH OLIVAREZ MD Blood BLOOD SPECIMEN / Unknown 03/01/2025 7:58 AM CDT 03/01/2025 7:59 AM CDT Beth Varghese MD LAB - HEMATOLOGY ORDER DEMETRI Final Result Performing Organization Address [facility] Co de Phone Number [address] [address] * (ABNORMAL) CBC WITH DIFFERENTIAL (03/01/2025 7:58 AM CDT) White Blood Cell Count 7.7 3.8 - 10.8 Thousand/ uL [facility] RBC 4.78 3.80 - 5.10 Million/u L [facility] Hemoglobin 13.9 11.7 - 15.5 g/dL [facility] Hematocrit 45.6(H) 35.0 - 45.0 % [facility] MCV 95.4 80.0 - 100.0 fL [facility] MCH 29.1 27.0 - 33.0 pg [facility] MCHC 30.5(L) 32.0 - 36.0 g/dL [facility] Comment: For adults, a slight decrease in the calculated MCHC value (in the range of 30 to 32 g/dL) is most likely not clinically significant; however, it should be interpreted with caution in correlation with other red cell parameters and the patient's clinical condition. RDW 13.4 11.0 - 15.0 % [facility] Platelet Count 267 140 - 400 Thousand/ uL [facility] MPV 9.5 7.5 - 12.5 fL [facility] Neutrophil Absolute 3380 1500 - 7800 cells/uL [facility] Absolute Bands [facility] Metamyelocytes Absolute [facility] Myelocytes Absolute [facility] Absolute Prolymphocytes [facility] Lymphocytes Absolute 3242 850 - 3900 cells/uL [facility] Absolute Monocytes 785 200 - 950 cells/uL [facility] Eosinophils Absolute 223 15 - 500 cells/uL [facility] Basophils Absolute 69 0 - 200 cells/uL [facility] Absolute Blasts [facility] nRBC Absolute [facility] Granulocytes % 43.9 % [facility] Band Neutrophil [facility] Metamyelocytes [facility] Myelocytes [facility] Promyelocytes [facility] Lymphocytes % 42.1 % [facility] Lymphocyte Reactive [facility] Monocytes % 10.2 % [facility] Eosinophils % 2.9 % [facility] Basophils % 0.9 % [facility] Comment: Test Performed at: [facility] [address] HALEIGH OLIVAREZ MD Blasts [facility] nRBC [facility] Comments [facility] Comment: Test Performed at: [facility] [place] [address] HALEIGH OLIVAREZ MD Blood BLOOD SPECIMEN / Unknown 03/01/2025 7:58 AM CDT 03/01/2025 7:59 AM CDT Beth Varghese MD LAB - HEMATOLOGY ORDER DEMETRI Final Result [facility] [address] [place] [address] * (ABNORMAL) COMPREHENSIVE METABOLIC PANEL (03/01/2025 7:58 AM CDT) Glucose 116(H) 65 - 99 mg/dL [facility] Comment: Fasting reference interval For someone without known diabetes, a glucose value between 100 and 125 mg/dL is consistent with prediabetes and should be confirmed with a follow-up test. BUN 13 7 - 25 mg/dL [facility] Creatinine 0.68 0.50 - 1.05 mg/dL [facility] eGFR by Cystatin C 99 > OR = 60 mL/min/1. 73m2 [facility] BUN/Creatinine Ratio SEE NOTE: 6 - 22 (calc) [facility] Comment: Not Reported: BUN and Creatinine are within reference range. Sodium 137 135 - 146 mmol/L [facility] Potassium 4.9 3.5 - 5.3 mmol/L [facility] Chloride 100 98 - 110 mmol/L [facility] CO2 29 20 - 32 mmol/L [facility] Calcium 9.7 8.6 - 10.4 mg/dL [facility] Protein Total 7.0 6.1 - 8.1 g/dL [facility] Albumin 4.3 3.6 - 5.1 g/dL [facility] Globulin Total 2.7 1.9 - 3.7 g/dL (calc) [facility] Albumin/Globulin Ratio 1.6 1.0 - 2.5 (calc) [facility] Bilirubin Total 0.4 0.2 - 1.2 mg/dL [facility] Alkaline Phosphatase 100 37 - 153 U/L [facility] AST 14 10 - 35 U/L [facility] ALT 14 6 - 29 U/L [facility] Comment: Test Performed at: [place] [address] HALEIGH OLIVAREZ MD Blood BLOOD SPECIMEN / Unknown 03/01/2025 7:58 AM CDT 03/01/2025 7:59 AM CDT us Beth Varghese MD LAB - CHEMISTRY ORDERA BLES Final Result [facility] [address] [place] [address] * HEPATITIS C AB W/RFLX TO HCV RNA QN PCR (10/30/2023 8:28 AM ORTHOPEDIC PHYSICAL THERAPIST) Hepatitis C Antibody NON-REACTI VE NON-REACT [facility] Comment: HCV antibody was non-reactive. There is no laboratory evidence of HCV infection. In most cases, no further action is required. However, if recent HCV exposure is suspected, a test for HCV RNA (test code 14507) is suggested. For additional information please refer to http://education.GooseChase/faq/ROA24m3 (This link is being provided for informational/ educational purposes only.) Test Performed at: [facility] [place] [address] HALEIGH OLIVAREZ MD 10/30/2023 8:28 AM ORTHOPEDIC PHYSICAL THERAPIST 10/30/2023 8:30 AM ORTHOPEDIC PHYSICAL THERAPIST us Beth Varghese MD LAB - CHEMISTRY ORDERA DALE Final Result Performing Organization Address [facility] Co de Phone Number [facility] [address] [place] [address] * (ABNORMAL) LIPID PROFILE (10/30/2022 7:19 AM ORTHOPEDIC PHYSICAL THERAPIST) Cholesterol 185 <200 mg/dL [facility] HDL Cholesterol [...] LDL-C. Syd SS et al. AMEENA. 2013;310(19): 6111-3872 (http://education.Moleculin.Cartavi/faq/RIA952) CHOL/HDLC RATIO 3.3 <5.0 (calc) [facility] Non HDL Cholesterol 129 <130 mg/dL (calc) [facility] Comment: For patients with diabetes plus 1 major ASCVD risk factor, treating to a non-HDL-C goal of <100 mg/dL (LDL-C of <70 mg/dL) is considered a therapeutic option. Test Performed at: [facility] [address] [place] [address] HALEIGH OLIVAREZ MD Blood BLOOD SPECIMEN / Unknown 10/30/2022 7:19 AM ORTHOPEDIC PHYSICAL THERAPIST 10/30/2022 7:20 AM ORTHOPEDIC PHYSICAL THERAPIST us Jazmyne Maldonado MD LAB - CHEMISTRY ORDERABLES Leyda l Result Performing Organization Address [facility] Co de Phone Number [facility] [address] [place] [address] from Last 3 Months or Most Recently Relevant to Health Maintenance Insurance [facility] Care Teams Flume Ride Operator Relationship Specialty Start Date End Date Bhavna Menon MD [address] [place] [address] PCP - General Family Medicine 10/23/22 Dell Lynn MD [address] [place] [address] Orthopedic Surgery 10/23/22
--- OUTSIDE RECORDS SUMMARY | 2025-05-30 07:55 | XMS_ITS | Encounter Summary ---
Author Organization [facility] Address [address] [place] [address] Care Team Providers Care Booster Pump Operator Name Role Phone Loan Morales MD Primary Care Provider [phone] Bhavna Menon MD Primary Care Provider [phone] Dell Lynn MD Unavailable [phone] Reason for Visit * Reason Onset Date Comments MEDICATION REFILL 09/13/2020 MEDICATION REFILL 09/20/2020 Encounter Details Date Type Department Care Team (Late st Contact Info) Description 09/13/2020 Telephone [facility] [address] [facility], [facility] [place] [id number] Jaida Lira MD [address] [place] [address] MEDICATION REFILL; MEDICATION REFILL Social History Tobacco Use Types Packs/Day Years Used Date Smoking Tobacco: Former Smokeless Tobacco: Never Alcohol Use Standard Drinks/Week Comments No 0 (1 standard drink = 0.6 oz pur e alcohol) Comments No Sex and Gender Information Value Date Recorded Sex Assigned at Not on file Legal Sex Female 7:59 AM CDT Gender Identity Not on file Sexual Orientation Not on file documented as of this encounter Miscellaneous Notes * Telephone Encounter - Zandra Jose LPN - 09/20/2020 12:49 PM SOCIAL MEDIA EXECUTIVE Fax and phone call from [facility] regarding Patient's Humira. Clarification needed on dose form-syringes ordered. Contacted Patient, she uses [employer]. Form printed and faxed to [facility] for MD to sign and fax to [facility]. AL MEDIA EXECUTIVE * Telephone Encounter - Franchesca Antoine - 09/13/2020 9:17 AM CST Refill Request Vivian Matute TEMI: 05/15/20 NOV scheduled:10/30/20 LRF: 08/16/19 Qty Disp: 12 syringe # of refills:3 Allergies: Allergies Allergen Reactions ??? Contrast-Gadolinium Agents For Mri Urticaria ??? Iohexol Other and Shortness of Breath Pended Medication Order: Requested Prescriptions Pending Prescriptions Disp Refills ??? adalimumab (HUMIRA) 40 MG/0.4ML injection 12 syringe 3 Sig: Inject 0.4 mL subcutaneously every 7 days Reasons: Plaque Psoriasis, Psoriasis associated withArthritis AL MEDIA EXECUTIVE documented in this encounter Plan of Treatment Upcoming Encounters Date Type Department Care Team (Late st Contact Info) Description 09/20/2025 12:20 PM SOCIAL MEDIA EXECUTIVE Office Visit [facility] - Rheumatology [address] [place] [address] [place] [address] Beth Varghese MD [address] [place] [address] [place] [address] documented as of this encounter Visit Diagnoses Diagnosis Psoriatic arthritis (HCC)- Primary Psoriatic arthropathy documented in this encounter Care Teams Booster Pump Operator Relationship Specialty Start Date End Date Loan Morales MD [address] [facility] [place] [address] PCP - General 05/11/18 10/22/22 Bhavna Menon MD [address] [place] [address] PCP - General Family Medicine 10/23/22 Dell Lynn MD [address] [place] [id number] Orthopedic Surgery 10/23/22 documented as of this encounter
--- OUTSIDE RECORDS SUMMARY | 2025-05-30 07:56 | XMS_ITS | Clinical Summary ---
Author Organization [facility] Address [address] [place] [address] Care Team Providers Care Blacksmith Supervisor Name Role Phone Unavailable Primary Care Provider [...] Screening with HPV 1993 Mammogram Screening 2003 Pneumococcal Vaccine: 50+ Ye ars (1 of 1 - PCV) 2013 Zoster Vaccines (1 of 2) 2013 COVID-19 Vaccine (2023-2 5 season) 2025 RSV Immunization or 60+ Years (1 - [...]
--- OUTSIDE RECORDS SUMMARY | 2025-05-30 07:56 | XMS_ITS | Patient Health Record ---
Author Organization [facility] Address [address] [facility] [address] [place], [place] [id number] Care Team Providers Care Router Operator Name Role Phone ALLEN SAUNDERS Unavailable [phone] Bhavna Menon Unavailable Unavailable Allergies Allergen (clinical drug ingredient) Drug/Non Drug Allergy documented on EMR Reaction Allergy Type Onset Date Status Iodinated contrast media (substance) IVP Dye, Iodine Containing (uncoded) Unknown Allergy 01/02/2021 active Shellfish (FN) Shellfish-derived Products Unknown Drug Allergy Active Reason For Referral No Information Immunizations Vaccine Route Administration Date Status Comme nts Influenza, high dose seasonal Unknown 06/09/2024 Admini stered Pneumococcal conjugate PCV 13 Unknown 07/07/2008 Admini stered Vital Signs Height-cm 170.18 cm 06/20/2024 Weight-kg 106.6 kg 06/20/2024 Height 67 in 06/20/2024 Weight 235 lbs 06/20/2024 BMI 36.8 kg/m2 06/20/2024 Encounters Encounter Location Date Provider Diagnosis [facility] [place] [address] [place], [place] [id number] 06/20/2024 ALLEN SAUNDERS Ingrowing nail L60.0 ; [...] Insured Coverage Start Date Coverage End Date [facility] [address] [address] [place] [address] [id number] LINDSAY HIGH Self - patient is the insured Medical (General) History Medical History History ICD Code Open Sores Skin Disorder Thyroid Disease Blood clots high blood pressure Arthritis
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
== END 2025-05-30 07:46 | disposition home or self-care (01) ==
LOC: ANHFOHIMG 07:46
PROVIDERS: PCP Family Medicine; Visit Provider Family Medicine
DX: Z12.31 Encounter for screening mammogram for malignant neoplasm of breast (principal); Z78.0 Asymptomatic menopausal state; M85.852 Other specified disorders of bone density and structure, left thigh; M85.851 Other specified disorders of bone density and structure, right thigh
CPT/HCPCS: 77063; 77067; 77080

== ENCOUNTER 2025-07-11 11:05 | Outpatient (CLI) | payer OTHER, SELFPAY ==
--- NOTE | ~2025-07-11 | XR_ITS ---
EXAMINATION: XR chest 2V, 07/11/2025 12:02 VENDING ATTENDANT HISTORY: Encounter for screening for respiratory tuberculosis COMPARISON: No comparisons available. Technique: 2 views obtained. Findings: The lungs are clear, no effusion. No pneumothorax. Heart is normal size. Mediastinal and hilar contours are within normal limits. Bony thorax no acute abnormality. Impression: No acute cardiopulmonary abnormality. Reviewed, dictated and finalized at location P. ING ATTENDANT Impression: No acute cardiopulmonary abnormality.
== END 2025-07-11 11:06 | disposition home or self-care (01) ==
PROVIDERS: PCP Family Medicine; Visit Provider Internal Medicine Rheumatology
DX: Z11.1 Encounter for screening for respiratory tuberculosis (principal); L40.50 Arthropathic psoriasis, unspecified; Z51.81 Encounter for therapeutic drug level monitoring; Z79.899 Other long term (current) drug therapy
CPT/HCPCS: 71046

== ENCOUNTER 2025-07-19 09:09 | Outpatient (CLI) | payer OTHER, SELFPAY ==
--- NOTE | ~2025-07-19 | XR_ITS ---
EXAMINATION: XR knee RT min 4V, 07/19/2025 9:20 CLAIMS INVESTIGATOR HISTORY: M17.11 - Unilateral primary osteoarthritis, right knee COMPARISON: No comparisons available. Findings: No acute fracture or malalignment. Moderate tricompartmental degenerative changes, small effusion Soft tissues unremarkable. Impression: No acute fracture or malalignment. Reviewed, dictated and finalized at location P. MS INVESTIGATOR Impression: No acute fracture or malalignment.
--- OUTSIDE RECORDS SUMMARY | 2025-07-19 09:52 | XMS_ITS | Clinical Summary ---
Author Organization [facility] Address [address] [place] [address] Care Team Providers Care Production Trainer Name Role Phone Unavailable Primary Care Provider [...] Vaccines (1 of 2) 2013 COVID-19 Vaccine (2024-2 6 season) 2025 Influenza Adult (#1) 2025 RSV Immunization or 60+ Years (1 - 1-dose 75+ series) 2038 Hepatitis A Vaccines Aged Out No long er eligible based on patient's age to complete this topic Meningococcal B Vaccine Aged Out No l onger eligible based on patient's age to complete this topic Meningococcal Vaccine Aged Out No leena noah eligible based on patient's age to complete this topic RSV Immunizations Under 20 Months Aged Out No longer eligible based on patient's age to complete this topic
--- OUTSIDE RECORDS SUMMARY | 2025-07-19 09:52 | XMS_ITS | Clinical Summary ---
Author Organization [facility] [address] Address [address] [place] [address] Care Team Providers Care Hydraulic Plumber Helper Name Role Phone Loan Morales MD Primary Care Provider [phone] Allergies Active Allergy Reactions Criticality Noted Date Comments Iodinated Contrast Media Shortness of breath High Pqvikpu-Yvq-Rum Reductase Inhibitors Hives,Swelling High 03/14/2024 Medications adalimumab [...] 1 tablet (112 mcg total) by mouth caterer helper before breakfast Active lisinopriL (PRINIVIL,ZESTR [place]) 20 [...] Smokeless Tobacco: Never Tobacco Cessation:Counseling Given: No [facility] Utilities Answer Date Recorded In the past 12 months has e [employer], gas, oil, or water [employer] threatened to shut off services in your home? No 04/12/2024 Social Connection and Isolation Panel Answer Date Recorded In a typical week, how many times do you talk on the phone with family, friends, or neighbors? More than three times a week 04/12/2024 How often do you get togethe r with friends or relatives? Twice a week 04/12/2024 How often do you attend [facility] ch or christian services? Never 04/12/2024 Do you belong to any clubs o r organizations such as christian groups, unions, fraternal or athletic groups, or [...] any time in the past 12 m [facility], were you homeless or living in a half-way (including now)? No 04/12/2024 Personal Safety Answer Date Recorded Have you ever been in or are you currently in a harmful physical or emotional relationship or is someone making you feel afraid or unsafe? 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 Gender Identity Not on file Sexual Orientation [...] history exists Medical Devices Implanted Type Area Solutions Market Consultant Device Identifier Shelf Expiration Date Model / Serial / Lot Bioventus Graft Tissue Acellular Dermis Regn Theraskin 3x6in Frozen 103tsxl - [id number] - [id number] Implanted:Qty: 1 on 03/14/2024 by Ryan Lara MD at [facility] N/A: Abdomen BIOVENTUS 07/11/2028 [id number] / [id number] / [id number] Bioventus Graft Tissue Acellular Dermis Regn Theraskin 3x6in Frozen 103tsxl - [id number] - [id number] Implanted:Qty: 1 on 03/14/2024 by Ryan Lara MD at [facility] N/A: Abdomen BIOVENTUS 07/22/2028 103TSXL / [id number] / [id number] Bioventus Graft Tissue Acellular Dermis Regn Theraskin 3x6in Frozen 103tsxl - [id number] - [id number] Implanted:Qty: 1 on 03/14/2024 by Ryan Lara MD at [facility] N/A: Abdomen BIOVENTUS 07/11/2028 [id number] / [id number] / [id number] Procedures Procedure Name Priority Date/Time Associated [...] of Race in Diagnosing Kidney Disease, JASN 202). The CKD-EPI equation should not be used for patients with unstable renal function and has not been validated in children and those over 70. Current interpretive data was last reviewed 2021. Blood 05/26/2024 6:31 AM CDT 05/26/2024 6:31 AM CDT us Brayden Reynoso MD LAB BLOOD ORDERABLES Leyda mayers Result [facility] [address] Department [place] [address] * (ABNORMAL) Hemoglobin A1c (04/12/2024 6:27 AM CDT) Hgb A1C 5.7(H) 4.0 - 5.6 % Estimated Average Glucose 117 mg/dL [facility] Comment: The ADA recommends reporting an estimated Average Glucose (eAG) with all Hemoglobin A1c results using the equation derived from a study of 507 normal and diabetic adults. Minority populations were underrepresented and children were not included. (Diabetes Care 31:5753-8176, 2008). The eAG is not equivalent to a fasting glucose. Blood 04/12/2024 6:27 AM CDT 04/12/2024 6:54 AM CDT us Kulwant Payton MD LAB BLOOD ORDERABLES Fin al Result [facility] [address] Department [place] [address] from Last 3 Months or Most Recently Relevant to Health Maintenance Insurance [facility] * Guarantor: [employer] Account Type Relation to Patient Date of Phone Billing Address Corporate Other [facility] CHO[facility] PLUS * Guarantor: [employer] Account Type Relation to Patient Date of Phone Billing Address Corporate Other Advance Directives For more information, please contact: [phone] * Full Code (Latest Code Status on File) Date Activated Date Inactivated Comments 04/11/2024 5:23 PM 04/14/2024 9:53 PM Care Teams Hydraulic Plumber Helper Relationship Specialty Start Date End Date Loan Morales MD [address] [place] [address] PCP - General Family Medicine 11/18/21
--- OUTSIDE RECORDS SUMMARY | 2025-07-19 09:52 | XMS_ITS | Patient Health Record ---
Author Organization [facility] Address [address] [place], [place] [address] Care Team Providers Care Registered Travel Nurse Name Role Phone ALLEN SAUNDERS Unavailable [phone] Bhavna Menon Unavailable Unavailable Allergies Allergen (clinical drug ingredient) Drug/Non Drug Allergy documented on EMR Reaction Allergy Type Onset Date Status IVP Dye, Iodine Containing (uncoded) Unknown Allergy 01/02/2021 active Shellfish (FN) Shellfish-derived Products Unknown Drug Allergy Active Reason For Referral No Information Immunizations Vaccine Route Administration Date Status Comme nts Influenza, high dose seasonal Unknown 06/09/2024 Admini stered Pneumococcal conjugate PCV 13 Unknown 07/07/2008 Admini stered Social History Social History Additional Details Category Social Info Options Details Migrated Social History Migrated Social History Smoking Status : Former tobacco user , History of tobacco use : Plan Of Treatment No Information Insurance Providers Payer Name Payer Address Payer Phone Subscriber Number Group Number Insured Name Patient Relationship to Insured Coverage Start Date Coverage End Date [facility] [address] [address] [place] [address] [id number] LINDSAY HIGH Self - patient is the insured Medical (General) History Medical History History ICD Code Open Sores Skin Disorder Thyroid Disease Blood clots high blood pressure Arthritis
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
--- OUTSIDE RECORDS SUMMARY | 2025-07-19 09:52 | XMS_ITS | Clinical Summary ---
Author Organization [facility] Address [address] [place] [address] Care Team Providers Care Voucher Clerk Name Role Phone Bhavna Menon MD Primary Care Provider [phone] Dell Lynn MD Unavailable [phone] Source Comments [facility],non-owned Affiliates and Associated Physician Practices is amultiple site organization consisting of ambulatory clinics and hospital sitesin [place], [place], [place] and [place]. This disclosure is being madepursuant to the Care Everywhere program and may not contain all information available regarding this patient. Last updated 18.[facility] Allergies Active Allergy Reactions Criticality Noted Date [...] Encounters Date Type Department Care Team Description 06/23/2025 Orders Only [facility] - Rheumatology [address] [place] [phone] Beth Varghese MD Psoriatic arthritis ([facility]); Encounter for therapeutic drug monitoring; High risk medications (not anticoagulants) long-term use 04/28/2025 Orders Only [facility] - Rheumatology [address] [place] [phone] Beth Varghese MD Psoriatic arthritis ([facility]); Encounter for therapeutic drug monitoring; High risk medications (not anticoagulants) long-term use from Last 3 Months Immunizations Immunization Administration [...] CDT Oxygen Saturation 93% 11/02/2024 2:24 PM [facility] Inhaled Oxygen Concentration - - Weight 105.7 kg (233 lb) 03/07/2025 12:44 PM CDT Height 170.2 cm (5' 7.01) 03/07/2025 12:44 PM C DT Body Mass Index 36.48 03/07/2025 12:44 PM CDT Plan of Treatment Upcoming Encounters Date Type Department Care Team (Late st Contact Info) Description 09/20/2025 12:20 PM [facility] Office Visit [facility] - Rheumatology [address] [place] [address], [place] [phone] Beth Varghese MD [address] [place] [address] [place] [id number] Health Maintenance Due Date Last Done Comments [...] 2025 2, 05/31/2021, 05/12/2020, Additional history exists LIPID TESTING 10/30/2027 10/30/2022 SCREENING FOR DIABETES 03/01/2028 5, 10/27/2024, 09/09/2023, Additional history exists Respiratory Syncytial Virus (RSV) [...] Procedure Name Priority Date/Time Associated Diagnosis Comments COMPREHENSIVE METABOLIC PANEL Routine 03/01/2025 7:58 AM CDT Psoriatic arthritis (HCC) Encounter for therapeutic drug monitoring High risk medications (not anticoagulants) long-term use HEPATITIS C AB W/RFLX TO HCV RNA QN PCR 10/30/2023 8:28 AM [facility] LIPID PROFILE Routine 10/30/2022 7:19 AM [facility] REYES (nonalcoholic steatohepatitis) from Last 3 Months or Most Recently Relevant to Health Maintenance Results * (ABNORMAL) COMPREHENSIVE METABOLIC PANEL (03/01/2025 7:58 AM CDT) Pathologist [facility] Glucose 116(H) 65 - 99 mg/dL [facility] [...] 29 U/L [facility] Comment: Test Performed at: [facility] [address] [address] AHLEIGH OLIVAREZ MD Blood BLOOD SPECIMEN / Unknown 03/01/2025 7:58 AM CDT 03/01/2025 7:59 AM CDT us Beth Varghese MD LAB - CHEMISTRY ORDERA BLES Final Result [facility] [address] [place] [address] * HEPATITIS C AB W/RFLX TO HCV RNA QN PCR (10/30/2023 8:28 AM [facility]) [facility] Hepatitis C Antibody NON-REACTI VE NON-REACT [facility] Comment: HCV antibody was non-reactive. There is no laboratory evidence of HCV infection. In most cases, no further action is required. However, if recent HCV exposure is suspected, a test for HCV RNA (test code 66100) is suggested. For additional information please refer to http://trippiece.Lishang.com/faq/JKM94f7 (This link is being provided for informational/ educational purposes only.) Test Performed at: [facility] [address] [facility] [place] [address] HALEIGH OLIVAREZ MD 10/30/2023 8:28 AM [facility] 10/30/2023 8:30 AM [facility] us Beth Varghese MD LAB - CHEMISTRY ROWENA HUNTER Final Result [facility] [address] [place] [address] * (ABNORMAL) LIPID PROFILE (10/30/2022 7:19 AM [facility]) Cholesterol 185 <200 mg/dL [facility] HDL Cholesterol [...] LDL-C. Syd SS et al. AMEENA. 2013;310(19): 0289-8438 (http://education.DNAe LTD/faq/DTR972) CHOL/HDLC RATIO 3.3 <5.0 (calc) [facility] Non HDL Cholesterol 129 <130 mg/dL (calc) [facility] Comment: For patients with diabetes plus 1 major ASCVD risk factor, treating to a non-HDL-C goal of <100 mg/dL (LDL-C of <70 mg/dL) is considered a therapeutic option. Test Performed at: [facility] [address] [facility] [place] [address] HALEIGH OLIVAREZ MD Blood BLOOD SPECIMEN / Unknown 10/30/2022 7:19 AM [facility] 10/30/2022 7:20 AM [facility] us Jazmyne Maldonado MD LAB - CHEMISTRY ORDERABLES Leyda mayers Result [facility] [address] [place] [address] from Last 3 Months or Most Recently Relevant to Health Maintenance Insurance [facility] Care Teams Voucher Clerk Relationship Specialty Start Date End Date Bhavna Menon MD [address] [place] [address] PCP - General Family Medicine 10/23/22 Dell Lynn MD [address] [place] [address] Orthopedic Surgery 10/23/22
--- OUTSIDE RECORDS SUMMARY | 2025-07-19 09:52 | XMS_ITS | Encounter Summary ---
Author Organization [facility] Address [address] [facility] [place] [address] Care Team Providers Care Healthcare Receptionist Name Role Phone Loan Morales MD Primary Care Provider [phone] Bhavna Menon MD Primary Care Provider [phone] Dell Lynn MD Unavailable [phone] Reason for Visit * Reason Onset Date Comments MEDICATION REFILL 09/13/2020 MEDICATION REFILL 09/20/2020 Encounter Details Date Type Department Care Team (Late st Contact Info) Description 09/13/2020 Telephone [facility] [address] [facility], [facility] [place] [phone] Jaida Lira MD [address] [place] [address] MEDICATION REFILL; MEDICATION REFILL Social History Tobacco [...] Zandra Jose LPN - 09/20/2020 12:49 PM COMPOSITE MECHANIC Fax and phone call from [facility] regarding Patient's Humira. Clarification needed on dose form-syringes ordered. Contacted Patient, she uses [employer]. Form printed and faxed to [facility] for MD to sign and fax to [facility]. OSITE MECHANIC * Telephone Encounter - Franchesca Antoine - [...] days Reasons: Plaque Psoriasis, Psoriasis associated withArthritis OSITE MECHANIC documented in this encounter Plan of Treatment Upcoming Encounters Date Type Department Care Team (Late st Contact Info) Description 09/20/2025 12:20 PM COMPOSITE MECHANIC Office Visit [facility] - Rheumatology [address] [place] [address] [place] [address] Beth Varghese MD [address] [place] [address] [place] [address] documented as of this encounter Visit Diagnoses Diagnosis Psoriatic arthritis (HCC)- Primary Psoriatic arthropathy documented in this encounter Care Teams Healthcare Receptionist Relationship Specialty Start Date End Date Loan Morales MD [address] [facility] [place] [address] PCP - General 05/11/18 10/22/22 Bhavna Menon MD [address] [place] [address] PCP - General Family Medicine 10/23/22 Dell Lynn MD [address] [place] [id number] Orthopedic Surgery 10/23/22 documented as of this encounter
== END 2025-07-19 09:10 | disposition home or self-care (01) ==
PROVIDERS: PCP Family Medicine; Visit Provider Physician Assistant Surgical
DX: M17.11 Unilateral primary osteoarthritis, right knee (principal)
CPT/HCPCS: 73564